=== PATIENT | female | born 1990 | race Caucasian/White ===

== ENCOUNTER → 2021-09-21 08:22 | Outpatient (CLI) | payer OTHER, SELFPAY | PROVIDERS: Visit Provider Physician Assistant | DX: Z11.52 Encounter for screening for COVID-19 (principal) | CPT/HCPCS: 87635; U0005; U0003 ==

== ENCOUNTER → 2022-03-10 | Outpatient (CLI) | payer OTHER, SELFPAY ==
--- NOTE | 2022-03-10 12:42 | RAD_ITS ---
STUDY: X-RAY - RIGHT ANKLE REASON FOR EXAM: Female, 32 years old. Right foot and ankle pain TECHNIQUE: 3 view(s) of the ankle. COMPARISON: None. FINDINGS: Normal visualized distal tibia and fibula. Normal medial and lateral malleoli. Normal tibiotalar articulation and ankle mortise. Normal visualized talus and calcaneus. The visualized subtalar, talonavicular, calcaneocuboid and tarsal articulations are normal. The soft tissue structures are unremarkable. RAD/Ankle min 3 Views IMPRESSION: Normal x-ray examination of the ankle. Electronically Signed: Wilson Camara MD at 12:58 EDT ,
--- NOTE | 2022-03-10 12:42 | RAD_ITS ---
STUDY: X-RAY - RIGHT FOOT CLINICAL: Female, 32 years old. Right foot and ankle pain TECHNIQUE: 3 view(s) of the foot. COMPARISON: None. FINDINGS: Normal talus, calcaneus, and tarsal bones. Normal visualized subtalar, talonavicular, calcaneocuboid, tarsal and tarsometatarsal articulations. Normal metatarsi. 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 Normal tibial and fibular sesamoid bones. Normal interphalangeal joint of the great toe. Normal phalanges of the great toe. Normal second through fifth metatarsophalangeal joints. Normal interphalangeal joints and phalanges of the lesser toes. The soft tissue structures are unremarkable. RAD/Foot min 3 Views IMPRESSION: Degenerative arthrosis and hallux valgus deformity. Electronically Signed: Wilson Camara MD at 12:58 EDT ,
== END | disposition home or self-care (01) ==
LOC: MTRAD 12:42
PROVIDERS: PCP Nurse Practitioner; Referring Provider Physician Assistant Surgical; Visit Provider Physician Assistant Surgical
DX: S96.911A Strain of unspecified muscle and tendon at ankle and foot level, right foot, initial encounter (principal)
CPT/HCPCS: 73610; 73630

== ENCOUNTER → 2022-05-15 | Outpatient (CLI) | payer OTHER, SELFPAY ==
--- NOTE | 2022-05-15 08:00 | RAD_ITS ---
STUDY: HYSTEROSALPINGOGRAM. REASON FOR EXAM: Female, 32 years old. INFERTILITY FLUOROSCOPY TIME (if supplied): ( 19 seconds ) minutes/seconds. 2 images were obtained. TECHNIQUE: A hysterosalpingogram was performed by the field associate. Imaging was provided. COMPARISON: None. FINDINGS: The fallopian tubes are widely patent. There is free spill bilaterally. RAD/Salpingogram IMPRESSION: The fallopian tubes are widely patent with free spill bilaterally. Electronically Signed: Wilson Camara MD at 8:37 EDT ,
== END | disposition home or self-care (01) ==
PROVIDERS: PCP Nurse Practitioner; Referring Provider Obstetrics & Gynecology; Visit Provider Obstetrics & Gynecology
DX: N97.9 Female infertility, unspecified (principal)
CPT/HCPCS: 58340; 74740; Q9967

== ENCOUNTER → 2023-03-15 | Outpatient (CLI) | payer OTHER, SELFPAY ==
[2023-03-15 12:11] LABS: Absolute Lymphocyte Count 1.57 X10^3/uL (0.83-4.51); Absolute Neutrophil Count 5.2 X10^3/uL (2.0-7.7); Basophil# 0.03 X10^3/uL; Basophil% 0.4 % (0-1); Eosinophil# 0.13 X10^3/uL; Eosinophils% 1.7 % (0-5); Hematocrit 44.1 % (37-47); Lymphocyte # 1.57 X10^3/ul (0.83-4.51); Mean Corp Hgb Conc 31.7 g/dL (32-36); Mean Corpuscular Hgb 29.9 pg (27.0-32.0); Mean Corpuscular Volume 94.2 fL (81-99); Mean Platelet Vol. 10.1 fl (6.2-12.0); Monocyte# 0.52 X10^3/uL; NRBC Flagged by Analyzer 0 % (0-5); Neutrophil % 69.5 % (47-70); Platelet Count 273 K/mm3 (150-450); RBC Distribution Width CV 13.8 % (11.6-14.6); RBC Distribution Width SD 47.8 fl (35.1-43.9); Red Blood Count 4.68 M/mm3 (4.2-5.4); White Blood Count 7.5 K/mm3 (4.4-11.0)
[2023-03-15 13:12] LABS: ALB/GLOB Ratio 1.1 RATIO (0.9-2.4); AST(SGOT) 18 U/L (15-37); Alanine Aminotransfer ALT/SGPT 31 U/L (13-56); Albumin, Serum 4.1 g/dL (3.2-5.0); Alkaline Phosphatase 74 U/L (45-117); Anion Gap 6 (5-15); BUN 9 mg/dL (7-18); BUN/Creat Ratio 11.9 RATIO (10-20); Chloride 110 mmol/L (98-107); Cholesterol 128 mg/dL (200); Creatinine, Serum 0.76 mg/dL (0.55-1.02); EST Glomerular Filtration Rate 93 mL/min (>60); Est Glom Filt Rate - Afr Amer 112 mL/min (>60); Globulin 3.8 g/dL (2.2-4.2); Glucose 87 mg/dL (74-106); High Density Lipoprotein 50 mg/dL; Potassium 4.1 mmol/L (3.5-5.1); Protein, Total 7.9 g/dL (6.4-8.2); Sodium Level 139 mmol/L (136-145); Thyroid Stim Hormone (TSH) 1.09 uIU/mL (0.358-3.74); Triglycerides 50 mg/dL; Very Low Density Lipoprotein 10 mg/dL (5-40)
[2023-03-15 14:52] LABS: Vitamin B12 327 pg/mL (211-911); Vitamin D,25 Hydroxy 33.1 ng/mL
== END | disposition home or self-care (01) ==
LOC: BIMLAB 08:29
PROVIDERS: PCP Nurse Practitioner Family; Referring Provider Nurse Practitioner Family; Visit Provider Nurse Practitioner Family
DX: Z00.00 Encounter for general adult medical examination without abnormal findings (principal); E56.9 Vitamin deficiency, unspecified
CPT/HCPCS: 36415; 80053; 80061; 82306; 82607; 84443; 85025

== ENCOUNTER → 2024-02-12 | Outpatient (CLI) | payer OTHER, SELFPAY ==
[2024-02-12 11:12] LABS: Absolute Lymphocyte Count 2.17 X10^3/uL (0.83-4.51); Absolute Neutrophil Count 5.9 X10^3/uL (2.0-7.7); Basophil# 0.07 X10^3/uL; Basophil% 0.8 % (0-1); Eosinophils% 1.1 % (0-5); Hematocrit 44.9 % (37-47); Hemoglobin 14.4 g/dL (12.0-15.0); Lymphocyte # 2.17 X10^3/ul (0.83-4.51); Lymphocyte % 24.4 % (19-41); Mean Corp Hgb Conc 32.1 g/dL (32-36); Mean Corpuscular Hgb 30.5 pg (27.0-32.0); Mean Corpuscular Volume 95.1 fL (81-99); Mean Platelet Vol. 9.6 fl (6.2-12.0); Monocyte# 0.56 X10^3/uL; Monocyte% 6.3 % (0-10); NRBC Flagged by Analyzer 0 % (0-5); Neutrophil # 5.94 X10^3/uL (2.7-7.7); Neutrophil % 66.8 % (47-70); Platelet Count 274 K/mm3 (150-450); RBC Distribution Width CV 14.3 % (11.6-14.6); RBC Distribution Width SD 50.1 fl (35.1-43.9); Red Blood Count 4.72 M/mm3 (4.2-5.4); White Blood Count 8.9 K/mm3 (4.4-11.0)
[2024-02-12 11:48] LABS: ALB/GLOB Ratio 1.1 RATIO (0.9-2.4); AST(SGOT) 19 U/L (15-37); Alanine Aminotransfer ALT/SGPT 33 U/L (13-56); Albumin, Serum 4.1 g/dL (3.2-5.0); Alkaline Phosphatase 74 U/L (45-117); Anion Gap 4 (5-15); BUN 15 mg/dL (7-18); BUN/Creat Ratio 20.2 RATIO (10-20); Calcium,Total 9.4 mg/dL (8.5-10.1); Chloride 107 mmol/L (98-107); Creatinine, Serum 0.74 mg/dL (0.55-1.02); EST Glomerular Filtration Rate 94 mL/min (>60); Est Glom Filt Rate - Afr Amer 114 mL/min (>60); Globulin 3.9 g/dL (2.2-4.2); Glucose 92 mg/dL (74-106); Magnesium 2.1 mg/dL (1.6-2.6); Potassium 4.2 mmol/L (3.5-5.1); Sodium Level 137 mmol/L (136-145); Thyroid Stim Hormone (TSH) 1.65 uIU/mL (0.358-3.74)
== END | disposition home or self-care (01) ==
LOC: LAB 10:58
PROVIDERS: PCP Nurse Practitioner Family; Referring Provider Nurse Practitioner Family; Visit Provider Nurse Practitioner Family
DX: R00.2 Palpitations (principal)
CPT/HCPCS: 36415; 80053; 83735; 84443; 85025

== ENCOUNTER → 2024-02-15 | Outpatient (CLI) | payer OTHER, SELFPAY ==
--- NOTE | 2024-02-15 07:49 | EKG12_ITS ---
Test Reason : PALPS Blood Pressure : / mmHG Vent. Rate : 078 BPM Atrial Rate : 078 BPM P-R Int : 154 ms QRS Dur : 082 ms QT Int : 370 ms P-R-T Axes : 044 021 065 degrees QTc Int : 421 ms Normal sinus rhythm with sinus arrhythmia Normal ECG Confirmed by ARASELI ESCAMILLA, JEANNIE ([id number]), acquisitions editor ANGEL LOERA ([id number]) on 02/15/2024 10:41:24 AM Referred By: Abiodun Laguerre Confirmed By:JEANNIE MARX MD
== END | disposition home or self-care (01) ==
LOC: PSN 07:49
PROVIDERS: PCP Nurse Practitioner Family; Referring Provider Nurse Practitioner Family; Visit Provider Nurse Practitioner Family
DX: R00.2 Palpitations (principal)
CPT/HCPCS: 93005

== ENCOUNTER → 2024-08-25 | Outpatient (CLI) | payer BC, SELFPAY ==
--- NOTE | 2024-08-25 12:14 | RAD_ITS ---
STUDY: X-RAY - LEFT KNEE REASON FOR EXAM: Female, 34 years old. KNEE PAIN TECHNIQUE: 3 views of the left knee. COMPARISON: None. FINDINGS: Normal visualized distal femur. Normal visualized proximal tibia and fibula. Normal proximal tibiofibular articulation. There is no demonstrated fracture. Normal medial femorotibial compartment. Normal lateral femorotibial compartment. Normal patellofemoral articulation. There is a small joint effusion. The soft tissue structures are unremarkable. RAD/Knee 3 Views IMPRESSION: Small joint effusion. No demonstrated fracture. Electronically Signed: Bret Jean MD at 14:06 EDT ,
--- OUTSIDE RECORDS SUMMARY | 2024-08-25 14:11 | XMS RPT_ITS | CCD ---
Author Organization [facility] Care Team Providers Care Portfolio Management Marketing Name Role Phone ADURY, MARIA EUGENIA S Attending Unavailable ADURY, MARIA EUGENIA S Referring Unavailable IMCA Primary Care Unavailable ADURY, MARIA EUGENIA S Attending Unavailable ADURY, MARIA EUGENIA S Referring Unavailable IMCA Primary Care Unavailable ADURY, MARIA EUGENIA S Attending Unavailable ADURY, MARIA EUGENIA S Referring Unavailable IMCA Primary Care Unavailable ADURY, MARIA EUGENIA S Attending Unavailable ADURY, MARIA EUGENIA S Referring Unavailable ADURY, MARIA EUGENIA S Attending Unavailable ADURY, MARIA EUGENIA S Referring Unavailable ADURY, MARIA EUGENIA S Attending Unavailable ADURY, MARIA EUGENIA S Referring Unavailable Unavailable Primary Care Provider Unavailabl e Unavailable Primary Care Provider Unavailnino Terrazas MD, Bishnu Primary Care Provider TERRAZAS, BISHNU Primary Care Unavailable BALLINNANDRAN, ROSANNE Attending Unavailable BALACHANDRAN, ROSANNE Referring Unavailable TERRAZAS, BISHNU Primary Care Unavailable TIFFANY DICKENS Referring Unavailable JESSEE DAVALOS Attending Unavailabl e TERRAZAS, BISHNU Primary Care Unavailable BALLINNANDRAN, ROSANNE Attending Unavailable TERRAZAS, BISHNU Primary Care Unavailable NIKKI COHEN Attending Unavailable JESSEE DAVALOS Referring Unavailabl e TERRAZAS, BISHNU Primary Care Unavailable TERRAZAS, BISHNU Primary Care Unavailable ADELINA HUDSON Attending Unavailable JESSEE DAVALOS Referring Unavailabl e TERRAZAS, BISHNU Primary Care Unavailable TERRAZAS, BISHNU Primary Care Unavailable ROWENA TORRES Attending Unavailable TERRAZAS, BISHNU Primary Care Unavailable BALACHANDRAN, ROSANNE Referring Unavailable MATT ASHRAF Attending Unavailable ROWENA TORRES Attending Unavailable TERRAZAS, BISHNU Primary Care Unavailable AMALIA HAY Attending Unavailable TERRAZAS, BISHNU Primary Care Unavailable BIMAL ETRRAZAS Primary Care Unavailable Bimal Terrazas MD Primary Care Provider Allergies Allergy Classification Reported Allergen(s) Allergy Type Date of Onset Reaction(s) Facility (20 sources) Cat; Translations: [CATS] Propensity to adverse reactions (disorder) 2 Other: See Comments [facility] Repository Medications Current Medications Medication Drug Class(es) Dates Sig (Normalized) Sig (Original) ARIPiprazole 5 mg oral tablet (20 sources) Atypical Antipsychotic Start: 10-24-2021 End: 05-22-2024 take 1 tablet by mouth once daily ARIPiprazole (ABILIFY) 5 mg tablet Indications: Generalized anxiety disorder , Bipolar 1 disorder, manic, full remission (HCC) Take 1 tablet by mouth once daily. 90 tablet 2 05/23/2024 Active Comment on above: TAKE 1 TABLET BY KRISTIAN TH EVERY DAY Take 1 tablet by kristian th once daily. levonorgestrel 0.622435 mg/hr intrauterine system (4 sources) Progestin, Progestin-containin g Intrauterine Device Start: 09-14-2023 End: 09-12-2031 levonorgestrel (MIRENA) 21 mcg/24 hours (8 yrs) 52 mg IUD Indications: Encounter for IUD insertion 1 Each by INTRAUTERINE route as directed. 1 Each 0 09/14/2023 09/12/2031 Active Comment on above: 1 Each by INTRAUTERI NE route as directed. metroNIDAZOLE 500 mg oral tablet (1 source) Nitroimidazole Antimicrobial Start: 08-30-2023 End: 09-06-2023 take 1 tablet by mouth twice daily metroNIDAZOLE (FLAGYL) 500 mg tablet Take 1 tablet by mouth two times a day for 7 days. 14 tablet 0 08/30/2023 09/06/2023 Active Comment on above: Take 1 tablet by kristian th two times a day for 7 days. MOUNJARO 10 mg/0.5 mL pen injector (3 sources) Start: 05-31-2023 inject 10 mg by subcutaneous injection every week MOUNJARO 10 mg/0.5 mL pen injector 10 mg (0.5 mL) subcutaneously every week 0 05/31/2023 Active Comment on above: 10 mg (0.5 mL) subcu taneously every week vitamin b12 1 mg/ml injectable solution (3 sources) Vitamin B12 Start: 08-01-2023 inject 1 mL by subcutaneous injection every month cyanocobalamin 1,000 mcg/mL INJECT 1ML UNDER THE SKIN EVERY MONTH 0 08/01/2023 Active Comment on above: INJECT 1ML UNDER THE SKIN EVERY MONTH Completed/Discontinued Medications Medication Drug Class(es) Dates Sig (Normalized) Sig (Original) amoxicillin 500 mg oral tablet (2 sources) Penicillin-class Antibacterial Start: 07-16-2023 End: 08-29-2023 take 1 tablet by mouth three times daily Amoxicillin 500 mg tablet Indications: Acute otitis media, left Take 1 tablet by mouth three times daily. 21 tablet 0 07/16/2023 08/29/2023 Discontinued (Course of therapy completed) Comment on above: Take 1 tablet by kristian th three times daily. letrozole 2.5 mg oral tablet (20 sources) Aromatase Inhibitor Start: 01-10-2023 End: 08-29-2023 letrozole (FEMARA) 2.5 mg tablet Indications: Problems with ovulation Take 1 tablet by mouth once daily. Cycle day 3-7 5 tablet 3 01/10/2023 08/29/2023 Discontinued (Course of therapy completed) Start: 06-27-2022 End: 10-27-2022 letrozole (FEMARA) 2.5 mg ta blet Take 1 tablet by mouth once daily. Take on CD 5-9 5 tablet 0 09/05/2022 10/27/2022 Discontinued Start: 05-15-2022 take 1 tablet by kristian th once daily, then take 5-9 tablets by mouth once letrozole (FEMARA) 2.5 mg tablet Indications: Female infertility Take 1 tablet by mouth once daily. Take on Cycle Days 5-9 5 tablet 0 05/15/2022 Active Comment on above: Take 1 tablet by kristian th once daily. Take on Cycle Days 5-9 Take 1 tablet by kristian th once daily. Take on CD 5-9 Take 1 tablet by kristian th once daily. Cycle day 3-7 Stsfuqfw-Vn-Pmo-Fe- FA tab (20 sources) Start: 06-24-2021 End: 08-29-2023 take 1 tablet by mouth once daily Lhlsugio-Xu-Xoz-Fe-FA tab Take 1 tablet by mouth once daily. With folic acid and DHA as covered by insurance 30 tablet 11 06/24/2021 08/29/2023 Discontinued (Course of therapy completed) Start: 06-24-2021 take 1 tablet by kristian th once daily Zdjxklhe-Lo-Ouo-Fe-FA tab Take 1 tablet by mouth once daily. With folic acid and DHA as covered by insurance 30 tablet 11 06/24/2021 Active Comment on above: Take 1 tablet by kristian th once daily. With folic acid and DHA as covered by insurance sertraline 50 mg oral tablet (20 sources) Serotonin Reuptake Inhibitor Start: 08-08-2021 End: 02-17-2025 take 1 tablet by mouth once daily sertraline (ZOLOFT) 50 mg tablet Indications: Bipolar 1 disorder, manic, full remission (HCC) , Generalized anxiety disorder Take 1 tablet by mouth once daily. 90 tablet 2 10/05/2023 05/22/2024 Discontinued Comment on above: Take 1 tablet by kristian th once daily. Problems Active Problems Problem Classification Problem Date Documented Date Episodic/Chronic Administrative/social admission (1 source) Treatment plan given; Translations: [Counseling, unspecified] Episodic Anxiety disorders (10 sources) Generalized anxiety disorder; Translations: [Generalized anxiety disorder] Onset: 04-23-2018 Chronic Female infertility (8 sources) Female infertility; Translations: [Female infertility, unspecified] Onset: 11-27-2022 Chronic Mood disorders (20 sources) Recurrent major depressive episodes, severe, with psychosis ; Translations: [Major depressive disorder, recurrent, severe with psychotic symptoms] Onset: 06-30-2015 10-24-2021 Chronic Other female genital disorders (2 sources) Vaginal discharge; Translations: [Other specified noninflammatory disorders of vagina] Episodic Other female genital disorders (3 sources) Disorder of endocrine ovary; Translations: [Noninflammatory disorder of ovary, fallopian tube and broad ligament, unspecified] Episodic Other female genital disorders (1 source) Vaginal odor; Translations: [Other specified noninflammatory disorders of vagina] 08-29-2023 Episodic Other screening for suspected conditions (not mental disorders or infectious disease) (7 sources) Patient encounter status; Translations: [Encounter for screening for diabetes mellitus] Episodic Other upper respiratory disease (20 sources) Seasonal allergy; Translations: [Other seasonal allergic rhinitis] 12-01-2011 Chronic Otitis media and related conditions (1 source) Acute left otitis media; Translations: [Otitis media, unspecified, left ear] 07-16-2023 Episodic Residual codes; unclassified (1 source) Trying to conceive; Translations: [Other specified health status] Episodic Past or Other Problems Problem Classification Problem Date Documented Date Episodic/Chronic Asthma (1 source) Asthma; Translations: [Unspecified asthma, uncomplicated] Resolved: 10-18-2021 10-24-2021 Chronic Contraceptive and procreative management (3 sources) Social and personal history finding; Translations: [Encounter for procreative management, unspecified] Onset: 11-27-2022 Episodic Other female genital disorders (1 source) Noninflammatory disorder of ovary, fallopian tube and broad ligament, unspecified; Translations: [Problems with ovulation] Onset: 11-27-2022 Episodic Residual codes; unclassified (20 sources) Family history of malignant neoplasm of ovary; Translations: [Family history of malignant neoplasm of ovary] Onset: 06-24-2021 06-24-2021 Episodic Residual codes; unclassified (1 source) Other specified health status; Translations: [Attempting to conceive] Onset: 11-27-2022 Episodic Results Test Name Value Interpretation Reference Range Facil ity CNOVon 10-30-2023 CNOV Office Visit (OBGYWM) ---- ASHLEIGH ROBIN ([id number]) 1990 F Date Time Provider Department 10/30/23 2:00 PM ROWENA TORERS OBGYWM During your visit today, we recorded the following information about you: Blood pressure Weight 112/68 84.4 kg Rowena Torres MD 10/30/2023 2:19 PM Signed Ashleigh Robin presents today for IUD check. She had a Mirena placed on 09/14/23. She has had spotting since placement. Like the first day of a period. No dyspareunia. No abnormal discharge. No fever or chills REVIEW OF SYSTEMS: no new c/o PHYSICAL EXAMINATION: LMP 08/18/2023 ABDOMEN:soft, non-tender, no masses, no hepatosplenomegaly, and no lymphadenopathy EXTERNAL GENITALIA: Normal genitalia and Bartholins, Urethra, Sken'e normal CERVIX: smooth, no lesions. IUD strings visible. UTERUS: normal size ADNEXA: negative for tenderness or masses brief TVUS shows IUD in proper location in endometrium IMPRESSION/PLAN: IUD correctly positioned. Some irreg bleeding, reassured common w/ Iudd if still bleeding in another 4 weeks or so consider trial of doxy. She is comfortable w/ plan Rowena Torres M.D. .Medical Decision Making: Problems: Low: 2+ self-limited or minor problems Data: Unique test result(s) reviewed: 1 Risk: Low: Low risk from testing/treatment Medical Decision Making Level: 3 - Low Allergies As of Date: 10/30/2023 Noted Allergy Reaction CATS 12/01/2011 14 - Other: See Comments Comments: nasal allergies Date Reviewed: 10/30/2023 Reviewed by: Rowena Torres MD - Fully Assessed Reason for Visit: IUD [60] Cmt: Bleeding and cramping Primary Visit Diagnosis:IUD check up [Z30.431] Other Visit Diagnosis:Irregular bleeding [N92.6] Prescriptions as of 10/30/2023 - sertraline (ZOLOFT) 50 mg tablet Take 1 tablet by mouth once daily. - ARIPiprazole (ABILIFY) 5 mg tablet Take 1 tablet by mouth once daily. - levonorgestrel (MIRENA) 21 mcg/24 hours (8 yrs) 52 mg IUD 1 Each by INTRAUTERINE route as directed. - MOUNJARO 10 mg/0.5 mL pen injector 10 mg (0.5 mL) subcutaneously every week - cyanocobalamin 1,000 mcg/mL INJECT 1ML UNDER THE SKIN EVERY MONTH Problem List As Of Date 10/30/2023 Noted Resolved Asthma [J45.909] 10/18/2021 Seasonal allergies [J30.2] Depression, major, recurrent, severe with psych*06/30/2015 Bipolar disorder (HCC) [F31.9] 06/24/2021 Family history of ovarian cancer [Z80.41] 06/24/2021 Encounter Status:Closed by ROWENA TORRES on 10/30/23 [facility] Rose 10-05-2023 CNOV Office Visit (ARESCL) ---- SHARDAASHLEIGH PHIPPS ([id number]) 1990 F Date Time Provider Department 10/05/23 3:00 PM MATT ASHRAF AREDMITRY During your visit today, we recorded the following information about you: Matt Ashraf DO 10/05/2023 3:26 PM Attested ---- Attestation signed by Rosanne Jimenez MD at 10/05/2023 3:38 PM Teaching attending- indirect supervision note: Reviewed pt's chart and agree with residents assessment and plan. Rosanne Jimenez MD Adult and Geriatric Psychiatry ---- [facility] PROGRESS NOTE PATIENT: Ashleigh Robin MRD: [id number] DATE: October 05, 2023 IDENTIFYING INFORMATION: Ashleigh is a 33 year old female with a history of bipolar 1 disorder, DAVID. Patient was referred by previous psych provider as transition of care. Initially seen on 07/28/21. CHIEF COMPLAINT: things have been going good SUBJECTIVE: Ashleigh is a 33 year old female with a history of bipolar 1 disorder, DAVID. Patient was referred by previous psych provider as transition of care. Initially seen on 07/28/21. The patient's last appointment with [facility] was on 04/04/23. Psychotropic medication regimen following that appointment included: Zoloft 50 mg daily, Abilify 1.25 mg daily. On encounter today, the patient reports things have been going good . Says she is on zoloft 40 mg and 1.25 mg Abilify. Going through a separation with right now. Feels down but also hopeful about the future. She denies experiencing any recent symptomatology consistent with mando/hypomania for several years. Patient reports mood has been ok. Decided to seperate with in July. Patient denies significant anhedonia. Reports fair motivation. Patient reports sleep is good. Patient states energy is energy throughout the day. Patient denies suicidal thoughts. Reports appetite is unchanged . Anxiety is reported as present, coincides with separation. She states that sentiments of the separation have been in the background over two years, was not a surprise to her. She decided she was no longer interested in pursuing fertility treatments. Ex- continued to want to pursue fertility treatments. They decided he will be best for both of them to separate. States that the separation was amicable and they are still supportive of each other. Regarding panic, patient denies. Things at work are good. Medication side effects: none Suicidal/Homicidal Thoughts/Plans: denies Substance Use History: Caffeine- 2-3 cups Nicotine- denies Alcohol- social THC- denies Denies illicit substance use VITAL SIGNS: LMP 08/18/2023 (Exact Date) LAB DATA: reviewed MENTAL STATUS EXAMINATION: Mental Status Exam: General/Sensorium: Alert - Appearance: Appears well groomed and stated age - Eye Contact: Appropriate eye contact - Demeanor: Appropriately interactive - Motor Activity: Normal - Speech: Appropriate - Mood: Denies mood concerns - Affect: Full range and Reactive - Thought Process: Linear, logical, and goal-directed - Associations: Normal - Thought Content: Appropriate with no SI/HI/AVH and Talking about future goals or plans - Perceptions: The patient does not appear internally stimulated - Cognition: Appears intact in regards to memory, attention/concentra tion, fund of knowledge and language skills - Insight: Fair - Judgment: Fair - RATING SCALES: PHQ-9 Score: 4 (10/03/2023 9:02 PM) (0-4) minimal depression, (5-9) mild depression, (10-14) moderate depression, (15-19) moderately severe depression, (20-27) severe depression DAVID-7 Total Score: 3 (10/03/2023 9:06 PM) (0-4) minimal anxiety, (5-9) mild anxiety, (10-14) moderate anxiety, (15-21) severe anxiety RISK ASSESSMENT: 1.) Wish to be : Have you wished you were or wished you could go to sleep and not wake up? NO 2.) Suicidal Thoughts: Have you actually had any thoughts of killing yourself? NO 3.) Suicide Behavior Question: Have you ever done anything, started to do anything, or prepared to do anything to end your life?NO IMPRESSION: 1..Bipolar 1 disorder, per history, in remission 2. Generalized anxiety disorder PLAN: Provided budget counselor and support. Encouraged ongoing use of coping skills, resiliency. Encouraged healthy and open communication. Continue Zoloft 50 mg daily for depression, anxiety Continue Abilify 1.25 mg p.o. daily as historically prescribed as per prior documentation (denoted in italics): Due to cost issues ordered as Abilify 5 mg p.o. daily (patient cuts it into one fourths). Discussed about Abilify dose of 1.25 mg (not known to stabilize mood at such a low dose). P (more content not included)... Normal [facility] CNOVon 09-14-2023 CNOV Office Visit (OBGYWM) ---- ASHLEIGH ROBIN ([id number]) 1990 F Date Time Provider Department 11/17/23 2:00 PM ROWENA TORRES OBGYWAnette During your visit today, we recorded the following information about you: Blood pressure Weight 122/70 85.7 kg Rowena Torres MD 09/14/2023 2:36 PM Signed Ashleigh presents today for IUD insertion for contraception. Patient's last menstrual period was 08/18/2023 (exact date). GC/chlamydia: Not done: no risk factors and/or patient declines screening test: negative Side effects including irregular bleeding were discussed with the patient. The patient understands that it should be removed in 8 years or sooner if the patient desires a . IUD source: office provided IUD lot #: [id number] Exp date: 07/28/2025 UNIVERSAL PROTOCOL / SAFETY CHECKLIST Procedure to be Performed: Mirena IUD insertion Sign In: A Moment of CARE was completed. Personnel directly involved with the procedure wore the appropriate PPE (Personal Protective Equipment). Patient/Surrogate Stated/Verified: PATIENT VERIFIED(optional for EMERGENT procedures): Patient name, Date of , Relevant allergies, and The intended procedure Time Out Communication: Intended patient and procedure match the source documents. Consent documented and matches the intended procedure. Implant(s) inserted: Correct implant(s) confirmed including size and side. and Expiration date(s) reviewed. Sign Out: SIGN OUT (optional for EMERGENT procedures): All specimen containers correctly labeled. All instruments, equipment, possible retained foreign bodies accounted for. Post-procedure follow-up management communicated and Plan of Care Visit completed when applicable. Rowena Torres M.D. The cervix was prepped with betadine. The uterus sounded to 8 cm and the uterus is Anteverted.. Using sterile technique, the Mirena IUD was inserted without difficulty and the string was cut to 2cm from the external os of the cervix. Patient tolerated procedure well. PLAN: Patient was advised to observe for signs and symptoms of infection including but not limited to fever, malodorous vaginal discharge and/or pain. The patient was told to check the string monthly for accurate placement. Bleeding expectations were reviewed. Follow up for annual or prn MD Rissa Koch [facility] 09/14/2023 2:02 PM Signed POST IUD INSTRUCTIONS You may have irregular bleeding during the first 3 months of use. You may have mild-severe cramping for the next 48 hours. You may use over the counter medication (Motrin, Tylenol) as needed. Your IUD must be removed or replaced based on the following table: IUD Type Removed or replaced within: Saundra 3 years Kyleena 5 years Mirena 8 years Liletta 8 years Paragard 10 years Call the office for signs/symptoms of infection such as severe cramping, fever, or unusual bleeding. Check for string placement as instructed by your doctor. If you have any additional questions, please contact the office. Referring Provider: VERENICE CISNEROS [[id number]] Allergies As of Date: 09/14/2023 Noted Allergy Reaction CATS 12/01/2011 14 - Other: See Comments Comments: nasal allergies Date Reviewed: 09/14/2023 Reviewed by: Hilaria Kwok Ma - Fully Assessed Reason for Visit: Insertion Of IUD [291] Primary Visit Diagnosis:Encounter for IUD insertion [Z30.430] Order(s):HCG QUAL UR B/O [6541614] Order #: [id number] [] levonorgestrel 21 mcg/24 hours (8 yrs) 52 mg 1 Each intrauterine device (MIRENA)Disp: Rfl: levonorgestrel (MIRENA) 21 mcg/24 hours (8 yrs) 52 mg IUD1 Each by INTRAUTERINE route as directed.Disp: 1 EachRfl: 0 Prescriptions as of 09/18/2023 - levonorgestrel (MIRENA) 21 mcg/24 hours (8 yrs) 52 mg IUD 1 Each by INTRAUTERINE route as directed. - MOUNJARO 10 mg/0.5 mL pen injector 10 mg (0.5 mL) subcutaneously every week - cyanocobalamin 1,000 mcg/mL INJECT 1ML UNDER THE SKIN EVERY MONTH - ARIPiprazole (ABILIFY) 5 mg tablet TAKE 1 TABLET BY MOUTH EVERY DAY - sertraline (ZOLOFT) 50 mg tablet Take 1 tablet by mouth once daily. Problem List As Of Date 09/14/2023 Noted Resolved Asthma [J45.909] 10/18/2021 Seasonal allergies [J30.2] Depression, major, recurrent, severe with psych*06/30/2015 Bipolar disorder (HCC) [F31.9] 06/24/2021 Family history of ovarian cancer [Z80.41] 06/24/2021 Other instructions from your clinician: POST IUD INSTRUCTIONS You may have irregular bleeding during the first 3 months of use. You may have mild-severe cramping for the next 48 hours. You may use over the counter medication (Motrin, Tylenol) as needed. Your IUD must be removed or replaced based on the following table: IUD Type Removed or replaced within: Saundra 3 years Kyleena 5 years Mirena 8 years Liletta 8 years Paragard 10 years Call the office for signs/ (more content not included)... Normal [facility] HCG QUAL UR B/Oon 09-14-2023 status Negative neg - pos [facility] 08-30-2023 FELIPE Telephone (OBGYWM) ---- ASHLEIGH ROBIN ([id number]) 1990 F Date Time Provider Department 08/30/23 VERENICE CISNEROS During your visit today, we recorded the following information about you: Verenice Cisneros APRN.CNP 08/30/2023 8:06 AM Signed Please notify patient: You tested positive for bacterial vaginosis. This is an imbalance of your normal bacteria. I will send a prescription for Flagyl 500mg by mouth twice a day for 7 days. 1) No alcohol during treatment and for 72 hours after last dose. 2) No intercourse during treatment. 3) Probiotic by mouth once daily for 30 days or as needed. Please let me know if you have any questions. Verenice Cisneros APRN.Ginger Felipe LPN 08/30/2023 9:28 AM Signed Pt notified via Service Management Groupt and voicemail. Will wait for further response from pt. Ginger Swartz LPN Allergies As of Date: 08/30/2023 Noted Allergy Reaction CATS 12/01/2011 14 - Other: See Comments Comments: nasal allergies Date Reviewed: 08/29/2023 Reviewed by: Amalia Hay APRN.LEASE ADMINISTRATION SUPERVISOR - Fully Assessed Prescriptions as of 08/30/2023 - metroNIDAZOLE (FLAGYL) 500 mg tablet Take 1 tablet by mouth two times a day for 7 days. - ARIPiprazole (ABILIFY) 5 mg tablet TAKE 1 TABLET BY MOUTH EVERY DAY - sertraline (ZOLOFT) 50 mg tablet Take 1 tablet by mouth once daily. Problem List As Of Date 08/30/2023 Noted Resolved Asthma [J45.909] 10/18/2021 Seasonal allergies [J30.2] Depression, major, recurrent, severe with psych*06/30/2015 Bipolar disorder (HCC) [F31.9] 06/24/2021 Family history of ovarian cancer [Z80.41] 06/24/2021 Encounter Status:Closed by GINGER SWRATZ LPN on 08/30/23 Normal [facility] BACTERIAL VAGINOSIS NAATon 1 10-29-2022 Lactobacillus crispatus+gasseri+j ensenii + Gardnerella vaginalis + Atopobium vaginae rRNA KAY+probe Ql (Vag fld) Positive Abnormal Negative for bacterial vaginosis [facility] Comment on above: Order Comment: Speci men Type: SWABOrdering Facility: [facility] Address: [address] [place] [address] Performed By: #### B VAMP, CVTV ####[facility] LABCLIA [id number] [place] [address] [place] BENI/TRICHOMONAS NAATon 1 10-29-2022 C. glabrata RNA KAY+probe Ql (Vag fld) Negative Normal Negative for Beni glabrata [facility] Comment on above: Order Comment: Speci men Type: SWABOrdering Facility: [facility] Address: [address] [place] [address] Performed By: #### B VAMP, CVTV ####[facility] LABCLIA [id number] [place] [address] [place] Beni sp DNA KAY+probe Ql (Vag fld) Negative Normal Negative for Beni species [facility] Comment on above: Order Comment: Speci men Type: SWABOrdering Facility: [facility] Address: [address] [place] [address] Performed By: #### B VAMP, CVTV ####[facility] LABCLIA [id number] [address] [place] T. vaginalis DNA KAY+probe Ql (Unsp spec) Negative Normal Negative for Trichomonas vaginalis by amplification [facility] Comment on above: Order Comment: Speci men Type: SWABOrdering Facility: [facility] Address: [address] [place] [address] Performed By: #### B VAMP, CVTV ####[facility] LABCLIA [id number] [address] [place] CNOVon 08-29-2023 CNOV Office Visit (OBGYWM) ---- SHARDA,ASHLEIGH Cheema ([id number]) 1990 F Date Time Provider Department 08/29/23 9:00 AM AMALIA HAY During your visit today, we recorded the following information about you: Blood pressure Weight Last Period 110/70 86.1 kg 08/18/23 Amalia Hay, JOAO.LEASE ADMINISTRATION SUPERVISOR 08/29/2023 1:08 PM Signed Software Test Manager offered: Patient declines. Ashleigh M Sharda is a 33 year old female who presents for vaginal discharge and odor for 2 week(s). Had yeast infection 6-8 weeks ago and treated with Monistat. Then noticed an odor beginning of July that lasted about 2 weeks as well as an increased amount of discharge. Feeling better today, but wants to be tested for BV and yeast. Vaginal discharge: none. Itching: No Dyspareunia: No Fever/chills: No Abdominal pain: No Bladder: Negative for dysuria or frequency Bowel: No blood in stool, pain with BM, tarry stool, persistent diarrhea or constipation Any new sexual partners or concern for STD exposure: No Any history of STDs: None Does your partner have any new complaints: No Are you currently taking any medications to treat vaginitis: No Do you use feminine sprays, douches or deodorants: No Menstrual cycle: cycles every 32 days and 2-3 days of flow Contraception: none Last pap: 2019, normal HPV negative Past medical, surgical, social history, medications and allergies reviewed and updated. OBJECTIVE: BP 110/70 Wt 189 lb 12.8 oz (86.1kg) LMP 08/18/2023 GENERAL: Well developed, well nourished in no apparent distress ABDOMEN: soft, non-tender, and no masses PELVIC: external genitalia normal, normal Bartholin's glands, urethra, Bacliff's glands, no vulvar lesions, no cervical lesions, good vaginal support, physiologic discharge present, normal appearing perineal body and perianal region BIMANUAL: uterus normal size, shape and consistency, no adnexal masses, and non-tender. RECTOVAGINAL: deferred. ASSESSMENT/PLAN: 1. Vaginal odor - ICD9: 625.8, ICD10: N89.8 (primary diagnosis) - BACTERIAL VAGINOSIS NAAT - BENI/TRICHOMONAS NAAT 2. Vaginal discharge - ICD9: 623.5, ICD10: N89.8 - Recommend [facility] probiotic - Cotton underwear - Neutral soaps 3. Encounter for counseling regarding contraception - ICD9: V25.09, ICD10: Z30.09 - Has had IUD before - Wants IUD again - No longer pursuing fertility due to separation - Reviewed r/b/a - Plan for insertion Coping with separation at this time. Has counselor and psychiatrist. Patient to notify if she needs additional mental health assistance. STD screening: Declined STD check. Any new medications given to the patient have been explained as to directions, reasons for prescribing and side effects. Perineal hygiene and safe sex were discussed with the patient. Medical Decision Making: Problems: Low: Acute, uncomplicated illness or injury Data: Unique test(s) ordered: 2 Risk: Minimal: Minimal risk from testing/treatment Medical Decision Making Level: 3 - Low JOSEPH Hung APRN.CNP Referring Provider: SELF [[id number]] Allergies As of Date: 08/29/2023 Noted Allergy Reaction CATS 12/01/2011 14 - Other: See Comments Comments: nasal allergies Date Reviewed: 08/29/2023 Reviewed by: Amalia Hay APRN.LEASE ADMINISTRATION SUPERVISOR - Fully Assessed Reason for Visit: Vaginal Problem [117] Cmt: And discuss iud Primary Visit Diagnosis:Vaginal odor [N89.8] Other Visit Diagnoses:Encounter for counseling regarding contraception [Z30.09] Vaginal discharge [N89.8] Order(s):BACTERIAL VAGINOSIS NAAT [SQBVAMP] Order #: [id number]. #:[id number] BENI/TRICHOMONAS NAAT [SQCVTV] Order #: [id number]. #:[id number] INSERT INTRAUTERINE DEVICE [[id number]] Order #: [id number] Prescriptions as of 08/29/2023 - ARIPiprazole (ABILIFY) 5 mg tablet TAKE 1 TABLET BY MOUTH EVERY DAY - sertraline (ZOLOFT) 50 mg tablet Take 1 tablet by mouth once daily. Problem List As Of Date 08/29/2023 Noted Resolved Asthma [J45.909] 10/18/2021 Seasonal allergies [J30.2] Depression, major, recurrent, severe with psych*06/30/2015 Bipolar disorder (HCC) [F31.9] 06/24/2021 Family history of ovarian cancer [Z80.41] 06/24/2021 Medications Discontinued During This Encounter Prescriptions - Amoxicillin 500 mg tablet (Discontinued) Take 1 tablet by mouth three times daily. - letrozole (FEMARA) 2.5 mg tablet (Discontinued) Take 1 tablet by mouth once daily. Cycle day 3-7 - Fgyxditg-Di-Yuf-Fe- FA tab (Discontinued) Reported on 07/16/2023 Disposition: Return for IUD insertion. Follow-up and Disposition History for Encounter Date Provider Department Center 08/29/2023 [id number] HAY Encounter Status:Closed by AMALIA HAY on 08/29/23 [facility] CNOVon 07-16-2023 CNOV Office Visit (UCWSTR) ---- ASHLEIGH ROBIN ([id number]) 1990 F Date Time Provider Department 07/16/23 10:30 AM [facility] During your visit today, we recorded the following information about you: Temperature Pulse Respiration Blood pressure 98.6 degrees 91/minute 21/minute 134/90 Weight 88.3 kg Elizabeth Roche APRN.LEASE ADMINISTRATION SUPERVISOR 07/16/2023 10:50 AM Signed SUBJECTIVE: Ashleigh Robin is a 33 year old female. Who presents today with L ear pain since last night. She has not had an ear infection since she was a kid. She started having pain and pressure last night. She has no other symptoms and no fever. She is flying to [place] in 2 days. HPI PAST MEDICAL HISTORY Diagnosis Date Asthma childhood, exersice/cold air Bipolar disorder (HCC) 06/24/2021 BRCA negative 06/07/2020 [facility] Common cancer gene panel Depression, major, recurrent, severe with psychosis (HCC) 06/30/20152012, she was hospitalized, for psychosis. Her took her to the hospital. She had paranoia, that she would loose her job. took her to the ER, then she was hospitalized for a week at [place], She was started on the abilify, she feels good now, Sees her psychiatrist once every 6 months- Dr.Adury Crowder. DAVID (generalized anxiety disorder) History of mando 2012 admitted [facility] History of pyelonephritis 07/2011 MDD (major depressive disorder) 2012 Scoliosis Seasonal allergies FAMILY HISTORY Problem Relation Age of Onset Heart Mother Diabetes Father Auto-Immune Disorder Father MS-didn't meet all criteria for diagnosis Anxiety disorder Father No Known Problems Brother Heart Maternal Grandmother pacemaker Alcohol/Drug Maternal Grandfather Cancer Paternal Grandmother ovarian Heart Paternal Grandfather Melanoma Maternal Aunt Melanoma Maternal Uncle Social History Tobacco Use Smoking status: Never Smokeless tobacco: Never Vaping Use Vaping Use: Never used Substance Use Topics Alcohol use: Yes Alcohol/week: 18.0 standard drinks of alcohol Types: 9 Standard drinks or equivalent, 9 Glasses of Wine (5oz) per week Comment: 9-12 drinks per week Drug use: No ALLERGIES Allergen Reactions Cats Other: See Comments nasal allergies Current Outpatient Medications Medication Sig Dispense Refill ARIPiprazole (ABILIFY) 5 mg tablet TAKE 1 TABLET BY MOUTH EVERY DAY 90 tablet 0 sertraline (ZOLOFT) 50 mg tablet Take 1 tablet by mouth once daily. 90 tablet 2 letrozole (FEMARA) 2.5 mg tablet Take 1 tablet by mouth once daily. Cycle day 3-7 5 tablet 3 Xvbmavlx-Rj-Mre-Fe- FA tab Take 1 tablet by mouth once daily. With folic acid and DHA as covered by insurance (Patient not taking: Reported on 07/16/2023) 30 tablet 11 No current facility-administer ed medications for this visit. OBJECTIVE: BP 134/90 Pulse 91 Temp 37 ?C (98.6 ?F) Resp 21 Wt 88.3 kg (194 lb 9.6 oz) LMP 10/06/2022 (Exact Date) SpO2 97% BMI 28.12 kg/m? ROS all other systems reviewed and are negative Physical Exam Constitutional: Well developed, well nourished, NAD, AANDO X3. ENT: Head is atraumatic, airway patent, mucosal membranes moist. LTM red and buldging RTM with small amount of fluid Neck: supple with no palpable lymph nodes Cardiac: Heart tone normal rate and rhythm Respiratory: Breath sounds clear : no CVA tenderness MS: no swelling, tenderness or deformity in upper or lower extremities, no midline tenderness in cervical, thoracic or lumbar spine. Neuro: strength sensation and coordination intact. CN II-XII grossly intact, Skin: warm and dry with out rash, lesion or ecchymosis on exposed skin Psych: alert appropriate, speech clear It was a pleasure to take care of Ashleigh Robin today. For her ear infection I will send in amox. She may also use otc medications as discussed for pain and discomfort. Patient will follow up with family physician. They may return to the Urgent Care or go to the ER for worsening symptoms or concerns. Patient verbalized understanding of plan of care and is in agreement. ASSESSMENT/PLAN: 1. Acute otitis media, left - ICD9: 382.9, ICD10: H66.92 - AMOXICILLIN 500 MG TABLET Elizabeth Roche APRN.LEASE ADMINISTRATION SUPERVISOR Allergies As of Date: 07/16/2023 Noted Allergy Reaction CATS 12/01/2011 14 - Other: See Comments Comments: nasal allergies Date Reviewed: 07/16/2023 Reviewed by: Nadiya Parikh MA - Fully Assessed Reason for Visit: Ear Pain [817] Cmt: Left ear pain, feels clogged x 1 day Primary Visit Diagnosis:Acute otitis media, left [H66.92] Order(s):Amoxicilli n 500 mg tabletTake 1 tablet by mouth three times daily.Disp: 21 tabletRfl: 0 Prescriptions as of 07/16/2023 - Amoxicillin 500 mg tablet Take 1 tablet by mouth three times daily. - ARIPiprazole (ABILIFY) 5 mg tablet TAKE 1 TABLET BY MOUTH EVERY DAY - sertraline (ZOLOFT) 50 mg tablet Take 1 table (more content not included)... Normal [facility] CNOVon 04-04-2023 CNOV Office Visit (AGPSYACC) ---- SHARDAASHLEIGH PHIPPS ([id number]) 1990 F Date Time Provider Department 04/04/23 4:00 PM ROSANNE JIMENEZPSYACC During your visit today, we recorded the following information about you: Rosanne Jimenez MD 04/04/2023 4:32 PM Signed [facility]IC[facility] PROGRESS NOTE PATIENT: Ashleigh Robin MRD: [id number] DATE: April 04, 2023 IDENTIFYING INFORMATION: Ashleigh is a 33 year old female with a history of bipolar 1 disorder, DAVID. Patient was referred by previous psych provider as transition of care. Initially seen on 07/28/21. CHIEF COMPLAINT: doing well SUBJECTIVE: States that she's been doing well. She feels so much better after she and her decided to take a break from fertility treatment. She went through 2 cycles of IUI and it did not work out for them. It was frustrating. So they decided to take a break for now. States that her is extremely supportive. She denies any mood changes. Denies feeling anxious or depressed. Denies racing thoughts/flight of ideas/irritability/ impulsivity or any reckless behavior. Compliant with meds and denies any side effects. Denies SI/HI/AH/VH. Med compliant and denies any s/e. States that Femara (medication she received during IUI cycles) made her cry a lot and since she stopped taking it, she feels back to feeling like herself. She and her are planning to go camping and are traveling this summer. Medication side effects: None Suicidal/Homicidal Thoughts/Plans: denies Substance Use History: Tobacco-quit 2 years back. Alcohol-socially THC-occasionally. Quit 2 years back Ulrarnsd-8-8 cups of coffee a day. VITAL SIGNS: LMP-03/14/23 LAB DATA: None new MENTAL STATUS EXAMINATION: Appearance: appears stated age, ,Female, well-built and nourished, normal clothing, grooming is Within Normal Limits Activity: Normal Behavior: Cooperative, Good eye contact Speech: spontaneous, Normal rate, Normal volume, Clear Mood: Euthymic Affect: appropriate to content Thought Process: logical, coherent and rational Thought Content: no paranoia/delusions noted, No suicidal ideation, intent or plan. No homicidal ideation, intent or plan. Coherent Thought perception: Denies AH/VH. Cognition: Orientation: Person, Place, Time and Situation Attention: Intact Concentration: Intact Language: Intact naming Estimated Intelligence: Good Memory: Intact recent memory, Intact remote memory Insight: good Judgement: good RATING SCALES: PHQ-9 Score: 1 (04/02/2023 3:50 PM) (0-4) minimal depression, (5-9) mild depression, (10-14) moderate depression, (15-19) moderately severe depression, (20-27) severe depression DAVID-7 Total Score: 3 (04/02/2023 3:50 PM) (0-4) minimal anxiety, (5-9) mild anxiety, (10-14) moderate anxiety, (15-21) severe anxiety RISK ASSESSMENT: [place] SUICIDE SEVERITY RATING SCALE 1.) Wish to be : Have you wished you were or wished you could go to sleep and not wake up? NO 2.) Suicidal Thoughts: Have you actually had any thoughts of killing yourself? NO 6.) Suicide Behavior Question: Have you ever done anything, started to do anything, or prepared to do anything to end your life?NO IMPRESSION: 33 year-old female with medical history significant for asthma, scoliosis, seasonal allergie and psych history significant for bipolar 1 disorder and DAVID, presents today for follow up. Symptoms of bipolar disorder continue to be in remission. Diagnoses: Bipolar 1 disorder, in remission Generalized anxiety disorder PLAN: Continue Zoloft 50 mg p.o. daily for depression, anxiety Continue Abilify 1.25 mg p.o. daily as previously prescribed for mood stabilization, augmentation. Due to cost issues ordered as Abilify 5 mg p.o. daily (patient cuts it into one fourths). Discussed about Abilify dose of 1.25 mg (not known to stabilize mood at such a low dose). Pt. Verbalized understanding. She's been on this dose for many years since working with Dr. Barton. Risks, benefits, adverse effects and drug drug interactions of above meds discussed. Discussed in detail regarding safety of Zoloft and Abilify use in . Previously given reading material regarding use of Abilify in (unclear data, usually not recommended). Weighing the risks and benefits, it was decided that she continue Abilify (h/o relapse when Abilify was discontinued). Patient gives verbal permission to be registered in National Registry for Atypical Antipsychotics, once is confirmed. Medication changes: None Labs: None Provided supportive psychotherapy. Sees someone in [facility] for individual counseling as needed. [facility] website checked and validated. All prescriptions have been APPROPRIATELY filled. No suspicious activity was ident (more content not included)... Normal [facility] CNOVon 01-27-2023 CNOV Office Visit (REIBD) ---- ASHLEIGH ROBIN ([id number]) 1990 F Date Time Provider Department 01/27/23 10:00 AM NIKKI COHEN During your visit today, we recorded the following information about you: Lilly Lang 01/27/2023 10:30 AM Signed IUI specimen released to provider Lilly Lang January 27, 2023 10:10 AM Lilly Lang 01/27/2023 10:30 AM Signed IUI Pre: 56 m/ml, 82% Post: 44 m/ml, 96% Insem # 16.8 million Nikki Cohen APRN.CNP 01/27/2023 10:29 AM Signed [facility] IUI PROCEDURE NOTE Date: 01/27/2023 Primary Proceduralist: Nikki Cohen APRN.CNP Consents and Labels Consent Signed: Informed Consent obtained and on the chart Labels Verified With Patient: Yes Indications: Ashleigh Robin, is a 32 year old female here today for intrauterine insemination. IUI # 2. Cycle Day: 18 Last menstrual period: 01/10/2023 [place] Protocol: UNIVERSAL PROTOCOL / SAFETY CHECKLIST Procedure to be Performed: IUI #2 completed @ 10:12 am Sign In: A Moment of CARE was completed. Personnel directly involved with the procedure wore the appropriate PPE (Personal Protective Equipment). No special equipment needed. Patient/Surrogate Stated/Verified: PATIENT VERIFIED(optional for EMERGENT procedures): Patient name, Date of , Relevant allergies, and The intended procedure Time Out Communication: Intended patient and procedure match the source documents. Consent documented and matches the intended procedure. Sign Out: SIGN OUT (optional for EMERGENT procedures): No specimen collected. All instruments, equipment, possible retained foreign bodies accounted for. Post-procedure follow-up management communicated and Plan of Care Visit completed when applicable. Nikki Cohen APRN.CNP IUI IUI Date: 01/27/23 IUI #: 2 Pre-Procedure Diagnosis: Infertility Post-Procedure Diagnosis: Infertility Cycle Meds: Letrozole 2.5 mg Trigger: LH Surge Date Catheter Type: Curve catheter Tenaculum: No Catheter passed: Easy Complications: None Sperm Information: Source of Sperm: Partner Ejaculated: Yes Fresh/Frozen: Fresh TMC (total motile count of sperm after wash): 16.8 million Cycle reviewed, all questions answered. Pt instructed to take a test in 17 days if no menses and call with results. SIGNATURE: Nikki Cohen APRN.CNP PATIENT NAME: Ashleigh Robin DATE: January 27, 2023 TIME: 10:28 AM Referring Provider: JESSEE DAVALOS [[id number]] Allergies As of Date: 01/27/2023 Noted Allergy Reaction CATS 12/01/2011 14 - Other: See Comments Comments: nasal allergies Date Reviewed: 01/27/2023 Reviewed by: Nikki Cohen APRN.LEASE ADMINISTRATION SUPERVISOR - Fully Assessed Primary Visit Diagnosis:Encounter for artificial insemination [Z31.89] Prescriptions as of 01/27/2023 - letrozole (FEMARA) 2.5 mg tablet Take 1 tablet by mouth once daily. Cycle day 3-7 - ARIPiprazole (ABILIFY) 5 mg tablet Take 1 tablet by mouth once daily. - sertraline (ZOLOFT) 50 mg tablet Take 1 tablet by mouth once daily. - Lflkrvdv-Fv-Vos-Fe- FA tab Take 1 tablet by mouth once daily. With folic acid and DHA as covered by insurance Problem List As Of Date 01/27/2023 Noted Resolved Asthma [J45.909] 10/18/2021 Seasonal allergies [J30.2] Depression, major, recurrent, severe with psych*06/30/2015 Bipolar disorder (HCC) [F31.9] 06/24/2021 Family history of ovarian cancer [Z80.41] 06/24/2021 Encounter Status:[facility]REIBD[facility] ---- ASHLEIGH ROBIN ([id number]) 1990 F Date Time Provider Department 01/11/23 JESSEE DAVALOS During your visit today, we recorded the following information about you: Lucía Adamson Pss 01/11/2023 8:40 AM Signed Please send to [facility] in [place] on [address], needs to start it tomorrow please follow up with patient when called in. Aisha Lemos PA-C 01/11/2023 9:00 AM Signed Called the pt and notified that the Letrozole has been sent to that [facility] yesterday. Pt will call the pharmacy next. Aisha Lemos PA-C January 11, 2023 8:59 AM Allergies As of Date: 01/11/2023 Noted Allergy Reaction CATS 12/01/2011 14 - Other: See Comments Comments: nasal allergies Date Reviewed: 12/29/2022 Reviewed by: Adelina Hudson APRN.LEASE ADMINISTRATION SUPERVISOR - Fully Assessed Reason for Visit: letrozole 2.5 mg needs script [Other] Visit Diagnosis:Problems with ovulation [N83.9] Prescriptions as of 01/11/2023 - letrozole (FEMARA) 2.5 mg tablet Take 1 tablet by mouth once daily. Cycle day 3-7 - ARIPiprazole (ABILIFY) 5 mg tablet Take 1 tablet by mouth once daily. - sertraline (ZOLOFT) 50 mg tablet Take 1 tablet by mouth once daily. - Mxdukunf-Bj-Pck-Fe- FA tab Take 1 tablet by mouth once daily. With folic acid and DHA as covered by insurance Problem List As Of Date 01/11/2023 Noted Resolved Asthma [J45.909] 10/18/2021 Seasonal allergies [J30.2] Depression, major, recurrent, severe with psych*06/30/2015 Bipolar disorder (HCC) [F31.9] 06/24/2021 Family history of ovarian cancer [Z80.41] 06/24/2021 Encounter Status:Closed by AISHA LEMOS on 01/11/23 [facility] ASHLEIGH ROBIN ([id number]) 1990 F Date Time Provider Department 01/10/23 JESSEE DAVALOS During your visit today, we recorded the following information about you: Sharri Rincon Pss 01/10/2023 9:05 AM Signed Failed iui next steps Aisha Lemos PA-C 01/10/2023 3:51 PM Addendum Pt has completed Natural cycle/IUI Started period today, 01/10/23. Plan from 11/27/22 PLAN: LET 7.5 mg CD 3-7 OPK or Follicular monitoring IUI Maximum 3-4 ovulatory cycles; thereafter, if no conception has occurred, schedule a virtual visit to discuss additional work up, if any, and future treatment options ----- Pt is willing to try Let/ IUI States she has tried Let 2.5/OPK/TI last year (through her [employer] doc), and was able to miner pick + OPK. SC: Dr. Davalos, please advised on the proper dose of Letrozole for this pt. Please schedule the patient for the following- Please provide financial clearance for IUI for this pt. Aisha Lemos PA-C January 10, 2023 3:[address] Davalos agreed to start with Let 2.5mg for now. sent to the pt , with instructions Aisha Lemos PA-C January 10, 2023 3:49 PM Allergies As of Date: 01/10/2023 Noted Allergy Reaction CATS 12/01/2011 14 - Other: See Comments Comments: nasal allergies Date Reviewed: 12/29/2022 Reviewed by: Adelina Hudson APRN.LEASE ADMINISTRATION SUPERVISOR - Fully Assessed Reason for Visit: failed iui [Other] Primary Visit Diagnosis:Encounter for fertility planning [Z31.89 (ICD-10-CM)] [Z31.89] Other Visit Diagnosis:Problems with ovulation [N83.9] Order(s):letrozole (FEMARA) 2.5 mg tabletTake 1 tablet by mouth once daily. Cycle day 3-7Disp: 5 tabletRfl: 3 Prescriptions as of 01/10/2023 - letrozole (FEMARA) 2.5 mg tablet Take 1 tablet by mouth once daily. Cycle day 3-7 - ARIPiprazole (ABILIFY) 5 mg tablet Take 1 tablet by mouth once daily. - sertraline (ZOLOFT) 50 mg tablet Take 1 tablet by mouth once daily. - Jstesrtx-Ce-Tfj-Fe- FA tab Take 1 tablet by mouth once daily. With folic acid and DHA as covered by insurance Problem List As Of Date 01/10/2023 Noted Resolved Asthma [J45.909] 10/18/2021 Seasonal allergies [J30.2] Depression, major, recurrent, severe with psych*06/30/2015 Bipolar disorder (HCC) [F31.9] 06/24/2021 Family history of ovarian cancer [Z80.41] 06/24/2021 Prescriptions ordered this encounter Disp Refills Start End LETROZOLE 2.5 MG TABLET 5 ta* 3 01/10/2023 Route: ORAL Sig: Take 1 tablet by mouth once daily. Cycle day 3-7 Encounter Status:Closed by AISHA LEMOS on 01/10/23 [facility] [place] 12-26-2022 CNOV Office Visit (REIBD) ---- ASHLEIGH ROBIN ([id number]) 1990 F Date Time Provider Department 12/26/22 2:30 PM ADELINA HUDSON During your visit today, we recorded the following information about you: Adelina Hudson APRN.CNP 12/29/2022 6:14 PM Addendum [facility] IUI PROCEDURE NOTE Date: 12/26/2022 Primary Proceduralist: Adelina Hudson APRN.CNP Consents and Labels Consent Signed: Informed Consent obtained and on the chart Labels Verified With Patient: Yes Indications: Ashleigh Robin, is a 32 year old female here today for intrauterine insemination. IUI # 1. Cycle Day: 20 Last menstrual period: 12/07/2022 [place] Protocol: UNIVERSAL PROTOCOL / SAFETY CHECKLIST Procedure to be Performed: IUI IUI performed at 3:17pm Sign In: A Moment of CARE was completed. Personnel directly involved with the procedure wore the appropriate PPE (Personal Protective Equipment). Patient/Surrogate Stated/Verified: PATIENT VERIFIED(optional for EMERGENT procedures): Patient name, Date of , Relevant allergies, and The intended procedure Time Out Communication: Intended patient and procedure match the source documents. Consent documented and matches the intended procedure. Sign Out: SIGN OUT (optional for EMERGENT procedures): No specimen collected. All instruments, equipment, possible retained foreign bodies accounted for. Adelina Hudson APRN.CNP IUI IUI Date: 12/26/22 IUI #: 1 Pre-Procedure Diagnosis: Infertility Post-Procedure Diagnosis: Infertility Cycle Meds: Natural Cycle Luteal Phase Progesterone: N/A Trigger: LH Surge Date Catheter Type: Unisem catheter Tenaculum: No Catheter passed: Easy Complications: None Sperm Information: Source of Sperm: Partner Ejaculated: Yes Fresh/Frozen: Fresh TMC (total motile count of sperm after wash): 3.4 million Cycle reviewed, all questions answered. Pt instructed to take a test in 17 days if no menses and call with results. Late ovulation. consider starting Letrozole if not this cycle. It's in Dr. Davalos's plan, but patient did natural cycle. SIGNATURE: Adelina Hudson APRN.CNP PATIENT NAME: Ashleigh Robin DATE: December 29, 2022 TIME: 6:01 PM Claritza Angulo 12/29/2022 6:06 PM Signed IUI specimen released to provider Claritza Angulo December 26, 2022 3:08 PM Claritza Angulo 12/29/2022 6:06 PM Signed IUI WASH PRE: 36 MILLION/ML, 77% POST: 9 MILLION/ML, 94% FINAL INSEM #: 3.4 MILLION Claritza Angulo Referring Provider: JESSEE DAVALOS [[id number]] Allergies As of Date: 12/26/2022 Noted Allergy Reaction CATS 12/01/2011 14 - Other: See Comments Comments: nasal allergies Date Reviewed: 10/27/2022 Reviewed by: Carola Clark LPN - Fully Assessed Reason for Visit: IUI [Other] Primary Visit Diagnosis:Encounter for artificial insemination [Z31.89] Prescriptions as of 12/29/2022 - ARIPiprazole (ABILIFY) 5 mg tablet Take 1 tablet by mouth once daily. - sertraline (ZOLOFT) 50 mg tablet Take 1 tablet by mouth once daily. - Sibmwkek-Ea-Zvj-Fe- FA tab Take 1 tablet by mouth once daily. With folic acid and DHA as covered by insurance Problem List As Of Date 12/26/2022 Noted Resolved Asthma [J45.909] 10/18/2021 Seasonal allergies [J30.2] Depression, major, recurrent, severe with psych*06/30/2015 Bipolar disorder (HCC) [F31.9] 06/24/2021 Family history of ovarian cancer [Z80.41] 06/24/2021 Encounter Status:Closed by [facility]LIN[facility]ON [facility] (REIBD) ---- ASHLEIGH ROBIN ([id number]) 1990 F Date Time Provider Department 12/25/22 JESSEE DAVALOS During your visit today, we recorded the following information about you: Janay Tomas 12/25/2022 4:36 PM Signed Pt tested for ovulation this morning it was negative , tested this afternoon and was positive , pt was wondering if she should come in tomorrow for iui? Ne Gregg APRN.LEASE ADMINISTRATION SUPERVISOR 12/25/2022 4:47 PM Signed unable to reach, left message to return my call, can schedule same day at [place] tomorrow if she wishes. Ne Gregg APRN.LEASE ADMINISTRATION SUPERVISOR December 25, 2022 4:46 PM Allergies As of Date: 12/25/2022 Noted Allergy Reaction CATS 12/01/2011 14 - Other: See Comments Comments: nasal allergies Date Reviewed: 10/27/2022 Reviewed by: Carola Clark LPN - Fully Assessed Reason for Visit: insemination [Other] Primary Visit Diagnosis:Treatment plan provided [Z71.9] Prescriptions as of 12/25/2022 - ARIPiprazole (ABILIFY) 5 mg tablet Take 1 tablet by mouth once daily. - sertraline (ZOLOFT) 50 mg tablet Take 1 tablet by mouth once daily. - Iwmlofns-Vg-Slg-Fe- FA tab Take 1 tablet by mouth once daily. With folic acid and DHA as covered by insurance Problem List As Of Date 12/25/2022 Noted Resolved Asthma [J45.909] 10/18/2021 Seasonal allergies [J30.2] Depression, major, recurrent, severe with psych*06/30/2015 Bipolar disorder (HCC) [F31.9] 06/24/2021 Family history of ovarian cancer [Z80.41] 06/24/2021 Encounter Status:Closed by NE GREGG on 12/25/22 [facility] CONSULT PROGon 11-27-2022 CONSULT PROG HNO ID: [id number] Author: Jessee Davalos MD Service: ? Author Type: Physician Type: Consult Progress Note Filed: 12/17/2022 11:18 PM Note Text: VIRTUAL VISIT PROGRESS NOTE This is a virtual visit using [employer] video visit. It required patient-provider interaction for the medical decision making as documented below. Date of Consult: 11/27/2022 Consultation Requested By: Self-referred Ashleigh Robin is a 32 year old female presenting with the following history: HISTORY OF PRESENT ILLNESS: Ashleigh Robin is a 32 year old female Attempting to conceive since IUD removal 05/2021 Menstrual cycle irregularity: 28-31 cycle interval. OPK+ CD 18-19 PMHx: 30.8. Bipolar disorder. UTI PSHx: Bunionectomy OBHx: Denies Meds: MVI Desire for future fertility LET X4 cycles: Failed to conceive Wants pursue LET + IUI Discussed Laparoscopy and other testing considerations 34 year old male partner without proven fertility PMHx: Hiatal hernia. DAVID. Depression PSHx: Denies Meds: Anxiety and depression medications SA: Not completed to date Obstetric History T0 L0 SAB0 IAB0 Ectopic0 Multiple0 Live Births0 Fertility Evaluations and Treatments: Eval Checklist Results Date Comments HSG Not done Hysteroscopy Not done Laparoscopy Not done OPK (Ovulation Predictor Kit) Not done Ovarian [place] Not done Saline Ultrasound Not done Semen Analysis Not done Ultrasound Not done Other (See comments) Not done MENSTRUAL HISTORY: Menarche Age: Length of Cycle: Days: Menstrual Flow: Menstrual Symptoms: Patient's last menstrual period was 10/06/2022 (exact date). PAST MEDICAL HISTORY Diagnosis Date Asthma childhood, exersice/cold air Bipolar disorder (HCC) 06/24/2021 BRCA negative 06/07/2020 [facility] Common cancer gene panel Depression, major, recurrent, severe with psychosis (HCC) 06/30/20152012, she was hospitalized, for psychosis. Her took her to the hospital. She had paranoia, that she would loose her job. took her to the ER, then she was hospitalized for a week at [place], She was started on the abilify, she feels good now, Sees her psychiatrist once every 6 months- Dr.Adury Crowder. DAVID (generalized anxiety disorder) History of mando 2012 admitted [facility] History of pyelonephritis 07/2011 MDD (major depressive disorder) 2012 Scoliosis Seasonal allergies PAST SURGICAL HISTORY Procedure Laterality Date CORRECT BUNION,SIMPLE 10/29/2001 right HSG Bilateral 05/15/2022 B/l tubal patency- Dr. Carpio [facility] PAST SURGICAL HISTORY OF oral skin graft, receeding gums, age 14 FAMILY HISTORY Problem Relation Age of Onset Heart Mother Diabetes Father Auto-Immune Disorder Father MS-didn't meet all criteria for diagnosis Anxiety disorder Father No Known Problems Brother Heart Maternal Grandmother pacemaker Alcohol/Drug Maternal Grandfather Cancer Paternal Grandmother ovarian Heart Paternal Grandfather Melanoma Maternal Aunt Melanoma Maternal Uncle ETHNICITY: White GENETIC HISTORY: NA OCCUPATION/EXERCISE : Occupation: Exercise: Partner Information Partner's Name: Partner's : Partner's MRN: Partner's Ethnicity: NOT or Partner's Race: White MEDICATIONS: Current Outpatient Medications on File Prior to Visit Medication Sig ARIPiprazole (ABILIFY) 5 mg tablet Take 1 tablet by mouth once daily. sertraline (ZOLOFT) 50 mg tablet Take 1 tablet by mouth once daily. Jwtxfdvd-Ig-Slk-Fe- FA tab Take 1 tablet by mouth once daily. With folic acid and DHA as covered by insurance No current facility-administer ed medications on file prior to visit. ALLERGIES: Cats Blood Type: NA ASSESSMENT: 32 year old female Attempting to conceive since IUD removal 05/2021 Menstrual cycle irregularity: 28-31 cycle interval. OPK+ CD 18-19 PMHx: 30.8. Bipolar disorder. UTI PSHx: Bunionectomy OBHx: Denies Meds: MVI Desire for future fertility LET X4 cycles: Failed to conceive Wants pursue LET + IUI Discussed Laparoscopy and other testing considerations 34 year old male partner without proven fertility PMHx: Hiatal hernia. DAVID. Depression PSHx: Denies Meds: Anxiety and depression medications SA: Not completed to date PLAN: LET 7.5 mg CD 3-7 OPK or Follicular monitoring IUI Maximum 3-4 ovulatory cycles; thereafter, if no conception has occurred, schedule a virtual visit to discuss additional work up, if any, and future treatment options Initial evaluation: Hormone values: Normal HSG: Normal 04/2022 Pelvic US: Normal 04/2022 SA: Normal Follow-up visit: In-person office visit or virtual visit to review and discuss initial work-up results to determine treatment plan I spent a total of 60 minutes on the date of the service which included preparing to see the patient, upxf-la-ulcu patient care, completing clinical documentation, obtaining and/or reviewing (more content not included)... Normal [facility] Basic metabolic 2000 panelon 10-27-2022 Anion gap [Moles/Vol] 13 mmol/L 9 - 18 mmol/L [facility] Calcium [Mass/Vol] 9.5 mg/dL 8.5 - 10.2 mg/dL [facility] Chloride [Moles/Vol] 107 mmol/L High 97 - 105 mmol/L [facility] CO2 [Moles/Vol] 20 mmol/L Low 22 - 30 mmol/L [facility] Creatinine [Mass/Vol] 0.67 mg/dL 0.58 - 0.96 mg/dL [facility] Estimated Glomerular Filtration Rate 119 mL/min/1.73m >=60 mL/min/1.73m [facility] Glucose [Mass/Vol] 81 mg/dL 74 - 99 mg/dL [facility] Potassium [Moles/Vol] 4.1 mmol/L 3.7 - 5.1 mmol/L [facility] Sodium [Moles/Vol] 140 mmol/L 136 - 144 mmol/L [facility] Urea nitrogen [Mass/Vol] 10 mg/dL 7 - 21 mg/dL [facility] CNOVon 10-02-2022 CNOV Office Visit (AGPSYACC) ---- SHARDAASHLEIGH PHIPPS ([id number]) 1990 F Date Time Provider Department 10/02/22 4:30 PM ROSANNE JIMENEZ During your visit today, we recorded the following information about you: Rosanne Jimenez MD 10/02/2022 5:05 PM Signed [facility]ICINE PROGRESS NOTE PATIENT: Ashleigh Andrewsak MRD: [id number] DATE: October 02, 2022 IDENTIFYING INFORMATION: Ashleigh is a 32 year old female with a history of bipolar 1 disorder, DAVID. Patient was referred by previous psych provider as transition of care. Initially seen on 07/28/21. 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 She is not sure if she wants to take the next step-that is seeing a fertility specialist. She was also in the process of accepting a job with a higher pay, but the position got filled. All this together got her feeling a little down. However, she states that she feels fine and that this is just a phase in life. Her functionality is well-maintained. States that her has been extremely supportive. She is going to take a week to decide going in to see a fertility specialist. She denies any racing thoughts, flight of ideas or increased energy. Gets 8 hours of sleep at night and feels well rested during the day. Appetite is fair. Compliant with meds and denies any side effects. Denies SI/HI/AH/VH. States that she is optimistic. Medication side effects: None Suicidal/Homicidal Thoughts/Plans: denies Substance Use History: Tobacco-quit 1 year Alcohol-socially THC-occasionally. Quit 1 year back Rinslcch-6-7 cups of coffee a day. VITAL SIGNS: LMP 03/07/2022 (Exact Date) LAB DATA: None new MENTAL STATUS EXAMINATION: Appearance: appears stated age, ,Female, well-built and nourished, normal clothing, grooming is Within Normal Limits Activity: Normal Behavior: Cooperative, Good eye contact Speech: spontaneous, Normal rate, Normal volume, Clear Mood: Euthymic Affect: appropriate to content Thought Process: logical, coherent and rational Thought Content: no paranoia/delusions noted, No suicidal ideation, intent or plan. No homicidal ideation, intent or plan. Coherent Thought perception: Denies AH/VH. Cognition: Orientation: Person, Place, Time and Situation Attention: Intact Concentration: Intact Language: Intact naming Estimated Intelligence: Good Memory: Intact recent memory, Intact remote memory Insight: good Judgement: good RATING SCALES: PHQ-9 Score: 3 (09/26/2022 3:05 PM) (0-4) minimal depression, (5-9) mild depression, (10-14) moderate depression, (15-19) moderately severe depression, (20-27) severe depression DAVID-7 Total Score: 3 (09/26/2022 3:09 PM) (0-4) minimal anxiety, (5-9) mild anxiety, (10-14) moderate anxiety, (15-21) severe anxiety RISK ASSESSMENT: [place] SUICIDE SEVERITY RATING SCALE 1.) Wish to be : Have you wished you were or wished you could go to sleep and not wake up? NO 2.) Suicidal Thoughts: Have you actually had any thoughts of killing yourself? NO 6.) Suicide Behavior Question: Have you ever done anything, started to do anything, or prepared to do anything to end your life?NO IMPRESSION: 32-year-old female with medical history significant for asthma, scoliosis, seasonal allergie and psych history significant for bipolar 1 disorder and DAVID, presents today for follow up. Stable on current dose of meds. Diagnoses: Bipolar 1 disorder, in remission Generalized anxiety disorder PLAN: Continue Zoloft 50 mg p.o. daily for depression, anxiety Continue Abilify 1.25 mg p.o. daily as previously prescribed for mood stabilization, augmentation. Due to cost issues ordered as Abilify 5 mg p.o. daily (patient cuts it into one fourths). Discussed about Abilify dose of 1.25 mg (not known to stabilize mood at such a low dose). Pt. Verbalized understanding. She's been on this dose for many years since working with Dr. Barton. Risks, benefits, adverse effects and drug drug interactions of above meds discussed. Discussed in detail regarding safety of Zoloft and Abilify use in . Given reading material regarding use of Abilify in (unclear data, usually not recommended). Weighing the risks and benefits, it was decided that she continue Abilify (h/o relapse when Abilify was discontinued). Patient gives verbal permission to be registered in National Registry for Atypical Antipsychotics, once is confirmed. Medication changes: None Labs: None Provided supportive psychotherapy and validated her concerns. PDMP website checked and validated. All prescriptions have been APPROPRIATELY filled. No suspicious activity was identified. (more content not included)... Normal [facility] Vital Signs Date Time Vital Sign Value Performing Clinician Rayne cannon 09-14-2023 14:12-0500 Body weight 85.73 kg Rowena Torres MD Work Phone: [facility] 09-14-2023 14:12-0500 Diastolic blood pressure 70 mm[Hg] Rowena Torres MD Work Phone: [facility] 09-14-2023 14:12-0500 Systolic blood pressure 122 mm[Hg] Rowena Torres MD Work Phone: [facility] 08-29-2023 08:52-0400 Body weight 86.09 kg Amalia Hay APRN.LEASE ADMINISTRATION SUPERVISOR Work Phone: [facility] 08-29-2023 08:52-0400 Diastolic blood pressure 70 mm[Hg] Amalia Hay APRN.LEASE ADMINISTRATION SUPERVISOR Work Phone: [facility] 08-29-2023 08:52-0400 Systolic blood pressure 110 mm[Hg] Amalia Hay APRN.LEASE ADMINISTRATION SUPERVISOR Work Phone: [facility] 07-16-2023 10:33-0400 Body temperature 98.6 [degF] Elizabeth Roche APRN.LEASE ADMINISTRATION SUPERVISOR Work Phone: [facility] 07-16-2023 10:33-0400 Body weight 88.27 kg Elizabeth Roche APRN.LEASE ADMINISTRATION SUPERVISOR Work Phone: [facility] 07-16-2023 10:33-0400 Diastolic blood pressure 90 mm[Hg] Elizabeth Roche APRN.LEASE ADMINISTRATION SUPERVISOR Work Phone: [facility] 07-16-2023 10:33-0400 Heart rate 91 /min Elizabeth Roche APRN.LEASE ADMINISTRATION SUPERVISOR Work Phone: [facility] 07-16-2023 10:33-0400 Respiratory rate 21 /min Elizabeth Roche APRN.LEASE ADMINISTRATION SUPERVISOR Work Phone: [facility] 07-16-2023 10:33-0400 SaO2% (BldA) [Mass fraction] 97 % Elizabeth Roche APRN.LEASE ADMINISTRATION SUPERVISOR Work Phone: [facility] 07-16-2023 10:33-0400 Systolic blood pressure 134 mm[Hg] Elizabeth Roche APRN.LEASE ADMINISTRATION SUPERVISOR Work Phone: [facility] 10-27-2022 09:24-0500 Body height 177.2 cm Bimal Terrazas MD Work Phone: [facility] 10-27-2022 09:24-0500 Body temperature 97.2 [degF] Bimal Terrazas MD Work Phone: [facility] 10-27-2022 09:24-0500 Body weight 96.62 kg Bimal Terrazas MD Work Phone: [facility] 10-27-2022 09:24-0500 Diastolic blood pressure 80 mm[Hg] Bimal Terrazas MD Work Phone: [facility] 10-27-2022 09:24-0500 Heart rate 82 /min Bimal Terrazas MD Work Phone: [facility] 10-27-2022 09:24-0500 Respiratory rate 16 /min Bimal Terrazas MD Work Phone: [facility] 10-27-2022 09:24-0500 SaO2% (BldA) [Mass fraction] 96 % Bimal Terrazas MD Work Phone: [facility] 10-27-2022 09:24-0500 Systolic blood pressure 120 mm[Hg] Bimal Terrazas MD Work Phone: [facility] 10-16-2022 11:27-0500 Body height 177.2 cm Tiffany Dickens APRN.CNM Work Phone: [facility] 10-16-2022 11:27-0500 Body weight 96.16 kg Tiffany Dickens APRN.CNM Work Phone: [facility] 10-16-2022 11:27-0500 Diastolic blood pressure 68 mm[Hg] Tiffany Dickens APRN.CNM Work Phone: [facility] 10-16-2022 11:27-0500 Systolic blood pressure 116 mm[Hg] Tiffany Dickens APRN.CNM Work Phone: [facility] Encounters Encounter Date Encounter Type Care Provider Facility Start: 05-23-2024 End: 05-23-2024 [facility] Pascale Work Phone: [facility] Comment on above: Generalized anxiety disorder (Primary Dx); Bipolar 1 disorder, manic, full remission (HCC) Start: 10-30-2023 End: 10-30-2023 ambulatory BIMAL TERRAZAS Facility:[facility] Start: 10-05-2023 End: 10-05-2023 ambulatory BIMAL TERRAZAS Facility:[facility] Start: 10-05-2023 End: 10-05-2023 Patient encounter procedure Matt Ashraf DO Work Phone: [facility] Comment on above: Bipolar 1 disorder, manic, full remission (HCC) (Primary Dx); Generalized anxiety disorder Start: 09-14-2023 End: 09-14-2023 ambulatory ROWENA TORRES Facility:[facility] Start: 09-14-2023 End: 09-14-2023 Patient encounter procedure Rowena Torres MD Work Phone: [facility] Comment on above: Encounter for IUD in sertion (Primary Dx) Start: 08-30-2023 Orders Only Verenice MANN RN.LEASE ADMINISTRATION SUPERVISOR Work Phone: [facility] Start: 08-29-2023 End: 08-29-2023 ambulatory AMALIA HAY Facility:[facility] Start: 08-29-2023 End: 08-29-2023 Patient encounter procedure Amalia Hay APRN.LEASE ADMINISTRATION SUPERVISOR Work Phone: [facility] Comment on above: Vaginal odor (Primar y Dx); Encounter for counseling regarding contraception; Vaginal discharge Start: 07-16-2023 End: 07-16-2023 ambulatory BIMAL TERRAZAS Facility:[facility] Start: 07-16-2023 End: 07-16-2023 Patient encounter procedure Elizabeth Roche APRN.LEASE ADMINISTRATION SUPERVISOR Work Phone: [facility] Comment on above: Acute otitis media, left (Primary Dx) Start: 04-25-2023 Refill Rosanne kay MD Work Phone: [facility] Comment on above: Refill Request Start: 04-04-2023 End: 04-04-2023 ambulatory BIMAL TERRAZAS Facility:[facility] Start: 04-04-2023 End: 04-04-2023 Patient encounter procedure Rosanne Jimenez MD Work Phone: [facility] Comment on above: Bipolar 1 disorder, manic, full remission (HCC) (Primary Dx); Generalized anxiety disorder Start: 04-04-2023 Refill Rosanne kay MD Work Phone: [facility] Comment on above: Med Change Request Start: 01-27-2023 End: 01-27-2023 ambulatory BIMAL TERRAZAS Facility:[facility] Start: 01-27-2023 End: 01-27-2023 Patient encounter procedure Nikki Cohen PLUGGER.LEASE ADMINISTRATION SUPERVISOR Work Phone: [facility] Comment on above: Encounter for artifi cial insemination (Primary Dx) Start: 01-26-2023 End: 01-26-2023 ambulatory BIMAL TERRAZAS Facility:[facility] Start: 01-11-2023 Telephone encounter Jessee Davalos MD Work Phone: [facility] Comment on above: letrozole 2.5 mg nee ds script Start: 01-10-2023 Telephone encounter Jessee Davalos MD Work Phone: [facility] Comment on above: failed iui Start: 12-29-2022 ambulatory Adelina reyes PLUGGER.LEASE ADMINISTRATION SUPERVISOR Work Phone: [facility] Comment on above: Next steps Start: 12-29-2022 E-mail encounter fro m caregiver Adelina Hudson PLUGGER.LEASE ADMINISTRATION SUPERVISOR Work Phone: [facility] Start: 12-26-2022 End: 12-26-2022 ambulatory BIMAL TERRAZAS Facility:[facility] Start: 12-26-2022 End: 12-26-2022 Patient encounter procedure Adelina Hudson PLUGGER.LEASE ADMINISTRATION SUPERVISOR Work Phone: [facility] Comment on above: Encounter for artifi cial insemination (Primary Dx) Start: 12-26-2022 End: 12-26-2022 ambulatory BIMAL TERRAZAS Facility:[facility] Start: 12-25-2022 Telephone encounter Jessee Davalos MD Work Phone: [facility] Comment on above: insemination Start: 11-27-2022 End: 11-27-2022 ambulatory BIMAL TERRAZAS [facility] Start: 11-27-2022 End: 11-27-2022 ambulatory Jessee Davalos MD Work Phone: [facility] Comment on above: Problems with ovulat ion (Primary Dx); Female infertility; Attempting to conceive; Patient desires ; Encounter for fertility planning Start: 11-27-2022 End: 11-27-2022 Telemedicine consultation with patient Jessee Davalos MD Work Phone: [facility] Start: 11-02-2022 ambulatory Sandrine Carpio MD Work Phone: [facility] Start: 11-02-2022 Patient encounter procedure Sandrine Carpio MD Work Phone: [facility]/Gy[facility]cology Comment on above: Infertility consult Start: 10-27-2022 End: 10-27-2022 Patient encounter procedure Bimal Terrazas MD Work Phone: [facility] [place] Comment on above: Routine medical exam (Primary Dx); Encounter for screening for diabetes mellitus Start: 10-27-2022 End: 10-27-2022 Patient encounter status Bimal Terrazas MD Work Phone: [facility] [place] Start: 10-16-2022 End: 10-16-2022 Patient encounter procedure Tiffany Dickens APRN.CNM Work Phone: [facility] Comment on above: Encounter for gyneco logical examination (general) (routine) with abnormal findings (Primary Dx); Female infertility; Vaginal discharge; Family history of ovarian cancer Start: 10-16-2022 End: 10-16-2022 Patient encounter status Tiffany Dickens APRN.CNM Work Phone: [facility] Start: 10-09-2022 ambulatory Sandrine Carpio MD Work Phone: [facility] Comment on above: Cycle day 1 Start: 10-02-2022 End: 10-02-2022 ambulatory BIMAL TERRAZAS [facility] Start: 10-02-2022 End: 10-02-2022 Patient encounter procedure Rosanne Jimenez MD Work Phone: [facility] Comment on above: Bipolar 1 disorder, manic, full remission (HCC) (Primary Dx); Generalized anxiety disorder Start: 07-31-2022 Orders Only Sandrine Carpio MD Work Phone: [facility] Start: 06-27-2022 ambulatory Sandrine Carpio MD Work Phone: [facility] Comment on above: Progesterone Start: 06-15-2022 Telephone encounter Sandrine Carpio MD Work Phone: [facility] Comment on above: Patient Question Start: 05-16-2022 ambulatory Sandrine Carpio MD Work Phone: [facility] Comment on above: (Rylan) test ing Start: 05-15-2022 Telephone encounter Sandrine Carpio MD Work Phone: [facility] Comment on above: Orders Start: 05-09-2022 End: 05-09-2022 ambulatory Sandrine Carpio MD Work Phone: [facility] Comment on above: Female infertility ( Primary Dx) HSG Start: 05-09-2022 End: 05-09-2022 Telemedicine consultation with patient Sandrine Carpio MD Work Phone: [facility] Start: 04-04-2022 End: 04-04-2022 [facility] Rosanne Jimenez MD Work Phone: [facility] Comment on above: Bipolar 1 disorder, manic, full remission (HCC) (Primary Dx); Generalized anxiety disorder Start: 03-17-2022 End: 03-17-2022 ambulatory Tiffany Dickens APRN.CNM Work Phone: [facility] Comment on above: Female infertility ( Primary Dx) Start: 03-17-2022 End: 03-17-2022 Telemedicine consultation with patient Tiffany Dickens APRN.SMOOTH Work Phone: [facility] Start: 08-18-2019 Patient encounter procedure MARIA EUGENIA Michele ADURY Facility:[facility] Start: 02-17-2019 End: 02-17-2019 Patient encounter procedure MARIA EUGENIA Michele ADURY Facility:[facility] Start: 08-19-2018 End: 08-19-2018 Patient encounter procedure MARIA EUGENIA Leny GIPSONURY Facility:[facility] Start: 05-20-2018 Patient encounter procedure MARIA EUGENIA S BRANDANURY Facility:[facility] Start: 04-23-2018 End: 04-23-2018 Patient encounter procedure [facility] Leny GIPSONURY Facility:[facility] Start: 04-15-2018 Patient encounter procedure MARIA EUGENIA GIPSONURY Facility:[facility] Procedures Date Procedure Procedure Detail Performing Clinician Start: 09-14-2023 Urine test visual color cmprsn hareshs Rowena Torres MD Work Phone: Plan of Treatment Date Care Activity Detail Author Start: 05-19-2030 Urine microalbumin profile [facility] Start: 05-10-2025 HPV TESTING HPV TESTING [facility] Start: 05-10-2025 PAP TESTING PAP TESTING [facility] Start: 05-10-2025 Screening for malign ant neoplasm of cervix Cervical Cancer Screening [facility] Start: 06-29-2024 Influenza vaccination Influenza Vacc ine (#1) [facility] Start: 08-28-2023 Covid-19 Vaccine ( season) Covid-19 Vaccine () [facility] Start: 06-29-2023 Influenza vaccination Influenza Vacc ine (#1) [facility] Start: 08-03-2022 End: 10-03-2022 Progesterone [Mass/volume] in Serum or Plasma PROGESTERONE BLD Lab Routine Female infertility Expected: 08/03/2022 (Approximate), Expires: 10/03/2022 [facility] Work Phone: Comment on above: Expected: 08/03/2022 (Approximate), Expires: 10/03/2022 Start: 07-28-2022 End: 09-27-2022 Progesterone [Mass/volume] in Serum or Plasma PROGESTERONE BLD Lab Routine Female infertility Expected: 07/28/2022 (Approximate), Expires: 09/27/2022 [facility] Work Phone: Comment on above: Expected: 07/28/2022 (Approximate), Expires: 09/27/2022 Start: 07-06-2022 End: 09-05-2022 Progesterone [Mass/volume] in Serum or Plasma PROGESTERONE BLD Lab Routine Female infertility Expected: 07/06/2022 (Approximate), Expires: 09/05/2022 [facility] Work Phone: Comment on above: Expected: 07/06/2022 (Approximate), Expires: 09/05/2022 Start: 06-29-2022 Influenza vaccination INFLUENZA (#1) [facility] Start: 06-29-2022 End: 08-29-2022 Progesterone [Mass/volume] in Serum or Plasma PROGESTERONE BLD Lab Routine Female infertility Expected: 06/29/2022 (Approximate), Expires: 08/29/2022 [facility] Work Phone: Comment on above: Expected: 06/29/2022 (Approximate), Expires: 08/29/2022 Start: 03-17-2022 End: 05-17-2022 Estradiol (E2) [Mass/volume] in Serum or Plasma ESTRADIOL-17B BLD Lab Routine Female infertility Expected: 03/17/2022, Expires: 05/17/2022 [facility] Work Phone: Comment on above: Expected: 03/17/2022 , Expires: 05/17/2022 Start: 03-17-2022 End: 05-17-2022 Follitropin [Units/volume] in Serum or Plasma FSH BLD Lab Routine Female infertility Expected: 03/17/2022, Expires: 05/17/2022 [facility] Work Phone: Comment on above: Expected: 03/17/2022 , Expires: 05/17/2022 Start: 03-17-2022 End: 05-17-2022 PROGESTERONE BLD PROGESTERONE BLD Lab Routine Female infertility Expected: 03/17/2022, Expires: 05/17/2022 [facility] Work Phone: Comment on above: Expected: 03/17/2022 , Expires: 05/17/2022 Start: 03-17-2022 End: 05-17-2022 Thyrotropin [Units/volume] in Serum or Plasma TSH BLD Lab Routine Female infertility Expected: 03/17/2022, Expires: 05/17/2022 [facility] Work Phone: Comment on above: Expected: 03/17/2022 , Expires: 05/17/2022 Start: 01-02-2022 COVID-19 VACCINE (4 - Booster for Pfizer series) COVID-19 VACCINE (4 - Booster for Pfizer series) [facility] Start: 12-27-2021 COVID-19 VACCINE (4 - Booster for Pfizer series) COVID-19 VACCINE (4 - Booster for Pfizer series) [facility] Start: 11-29-2021 COVID-19 VACCINE (4 - Booster for Pfizer series) COVID-19 VACCINE (4 - Booster for Pfizer series) [facility] Start: 02-05-2008 SHINGRIX VACCINE (1 of 2) SHINGRIX VACCINE (1 of 2) [facility] Start: 2007 Anxiety Screening Anxiety Screening [facility] Start: 1989 HEPATITIS B (1 of 3 - 3-dose series) HEPATITIS B (1 of 3 - 3-dose series) [facility] BACTERIAL VAGINOSIS AMPLIFICATION BACTERIAL VAGINOSIS AMPLIFICATION Lab Routine Vaginal discharge 10/16/2022 12:16 PM [facility] Work Phone: BACTERIAL VAGINOSIS NAAT BACTERI AL VAGINOSIS NAAT Lab Routine Vaginal odor 08/29/2023 9:24 AM EDT [facility] Work Phone: BENI / TRICHOMONA S AMPLIFICATION BENI / TRICHOMONAS AMPLIFICATION Microbiology Routine Vaginal discharge 10/16/2022 12:16 PM EST [facility] Work Phone: BENI/TRICHOMONAS NAAT BENI /TRICHOMONAS NAAT Lab Routine Vaginal odor 08/29/2023 9:24 AM EDT [facility] Work Phone: Insertion intrauteri ne device iud INSERT INTRAUTERINE DEVICE Procedures Routine Encounter for counseling regarding contraception Ordered: 08/29/2023 [facility] Work Phone: Comment on above: Ordered: 08/29/2023 [facility] Immunizations Immunization Date Immunization Notes Care Provider Fa [facility] 08-16-2023 Seasonal, quadrivale nt, recombinant, injectable influenza vaccine, preservative free Rowena Torres MD Work Phone: [facility] Work Phone: 08-16-2023 influenza virus vacc ine, unspecified formulation Matt Geneeva HARRISON Work Phone: [facility] 09-06-2022 Influenza, injectabl e, Madin Juntura Canine Kidney, preservative free, quadrivalent Bimal Terrazas MD Work Phone: [facility] Work Phone: 09-06-2022 influenza virus vacc ine, unspecified formulation Elizabeth Roche APRN.LEASE ADMINISTRATION SUPERVISOR Work Phone: [facility] 08-09-2021 influenza, injectabl e, quadrivalent, preservative free Bimal Terrazas MD Work Phone: [facility] Work Phone: 07-27-2020 influenza, injectabl e, quadrivalent, preservative free Bimal Terrazas MD Work Phone: [facility] Work Phone: 05-19-2020 tetanus toxoid, redu bahvesh diphtheria toxoid, and acellular pertussis vaccine, adsorbed Tiffanytracee Dickens PLUGGER.CNM Work Phone: [facility] 08-26-2019 influenza, injectabl e, quadrivalent, preservative free Bimal Terrazas MD Work Phone: [facility] Work Phone: 07-30-2018 Influenza, injectabl e, Madin Nereida Canine Kidney, preservative free, quadrivalent Bimal Terrazas MD Work Phone: [facility] Work Phone: 07-24-2018 hepatitis A vaccine, adult dosage Bimal Terrazas MD Work Phone: [facility] Work Phone: 07-23-2018 typhoid capsular polysaccharide vaccine Bimal Terrazas MD Work Phone: [facility] Work Phone: 07-18-2017 influenza, injectabl e, quadrivalent, preservative free Bimal Terrazas MD Work Phone: [facility] Work Phone: 07-07-2016 influenza, injectabl e, quadrivalent, preservative free Bimal Terrazas MD Work Phone: [facility] Work Phone: 08-13-2015 influenza, injectabl e, quadrivalent, preservative free Bimal Terrazas MD Work Phone: [facility] Work Phone: 08-03-2014 influenza, seasonal, injectable, preservative free Bimal Terrazas MD Work Phone: [facility] Work Phone: 07-31-2013 influenza, seasonal, injectable, preservative free Bimal Terrazas MD Work Phone: [facility] Work Phone: 09-02-2012 influenza nasal, unspecified formulation Bimal Terrazas MD Work Phone: [facility] Work Phone: 09-02-2012 influenza virus vacc ine, unspecified formulation Tiffany Dickens APRN.CNM Work Phone: [facility] Work Phone: 08-21-2012 influenza, seasonal, injectable, preservative free Bimal Terrazas MD Work Phone: [facility] Work Phone: 08-02-2011 influenza, seasonal, injectable, preservative free Bimal Terrazas MD Work Phone: [facility] Work Phone: 03-03-2010 hepatitis A vaccine, adult dosage Bimal Terrazas MD Work Phone: [facility] Work Phone: 03-01-2010 yellow fever vaccine Bimal Terrazas MD Work Phone: [facility] Work Phone: 01-27-2010 tetanus toxoid, redu bhavesh diphtheria toxoid, and acellular pertussis vaccine, adsorbed Tiffany Dickens PLUGGER.CN Work Phone: [facility] Work Phone: 09-01-2009 novel Influenza-H1N1 -09, live virus for nasal administration Bimal Terrazas MD Work Phone: [facility] Work Phone: 03-19-2007 meningococcal ACWY vaccine, unspecified formulation Bimal Terrazas MD Work Phone: [facility] Work Phone: 03-19-2007 tetanus toxoid, redu bhavesh diphtheria toxoid, and acellular pertussis vaccine, adsorbed Tiffany Dickens PLUGGER.CNM Work Phone: [facility] 02-26-2001 measles, mumps and rubella virus vaccine Bimal Terrazas MD Work Phone: [facility] Work Phone: 02-10-1998 hepatitis B vaccine, adult dosage Bimal Terrazas MD Work Phone: [facility] Work Phone: 06-09-1997 hepatitis B vaccine, adult dosage Bimal Terrazas MD Work Phone: [facility] Work Phone: 02-11-1997 hepatitis B vaccine, adult dosage Bimal Terrazas MD Work Phone: [facility] Work Phone: 03-02-1994 poliovirus vaccine, inactivated Bimal Terrazas MD Work Phone: [facility] Work Phone: 08-16-1990 poliovirus vaccine, inactivated Bimal Terrazas MD Work Phone: [facility] Work Phone: 05-10-1990 measles, mumps and rubella virus vaccine Bimal Terrazas MD Work Phone: [facility] Work Phone: 1989 poliovirus vaccine, inactivated Bimal Terrazas MD Work Phone: [facility] Work Phone: 1989 poliovirus vaccine, inactivated Bimal Terrazas MD Work Phone: [facility] Work Phone: Payers Date Payer Category Payer Unknown [id number] 2021 Private Health Insurance [id number] 2021 Unknown [id number] 2021 Unknown MMO MMO [employer] [id number] 2021-Present [phone] [address] [place] [address] PPO [id number] 2021 Unknown [id number] 2021 Unknown [id number] 1989 Unknown [id number] 1989 Unknown [id number] 78 1989 Unknown [id number] 1989 Unknown [id number] 78 1989 Unknown [id number] 78 1989 Unknown [id number] 78 Unknown [id number] Social History Date Type Detail Facility Start: 08-17-2011 End: 10-16-2022 Tobacco smoking status NHIS Never smoked tobacco [facility] Work Phone: Start: 08-17-2011 End: 10-16-2022 Tobacco use and exposure Smokeless tobacco non-user [facility] Work Phone: Start: 01-03-2022 End: 05-23-2024 Alcohol intake Current drinker of alcohol (finding) [facility] Start: 01-03-2022 End: 04-02-2023 Alcohol intake [facility] Start: 09-19-2021 End: 10-20-2022 History SDOH Alcohol Frequency 4 [facility] Start: 09-19-2021 End: 10-20-2022 History SDOH Alcohol Std Drinks 2 [facility] Start: 09-19-2021 End: 10-20-2022 History SDOH Social Connections Phone 3 [facility] Start: 09-19-2021 End: 10-20-2022 History SDOH Social Connections [facility] 1 [facility] Start: 09-19-2021 End: 10-20-2022 History SDOH Financial 5 [facility] Start: 1989 Sex Assigned At Not on file [facility] Start: 03-25-2022 End: 04-04-2022 Exposure to SARS-CoV-2 (event) Yes [facility] Start: 04-17-2022 End: 10-02-2022 Exposure to SARS-CoV-2 (event) Not sure [facility] Start: 10-27-2022 Alcohol Comment 9-12 drinks per week [facility] Start: 10-20-2022 End: 04-02-2023 Social connection and isolation panel [facility] Are you now , , , , never or living with a partner? [facility] How often to you hav e a drink containing alcohol? 2-3 time sa week [facility] How many standard dr inks containing alcohol do you have on a typical day? 3 or 4 [facility] How often do you hav e 6 or more drinks on 1 occasion? Monthly [facility] How hard is it for y ou to pay for the very basics like food, housing, medical care, and heating Not hard at all [facility] Do you feel stress - tense, restless, nervous, or anxious, or unable to sleep at night because your mind is troubled all the time - these days [OSQ] Only a little [facility] (I/We) worried wheth er (my/our) food would run out before (I/we) got money to buy more. Never true [facility] In the past 12 month s, was there a time when you were not able to pay the mortgage or rent on time? No [facility] Clinical Notes 10-18-2021 to 05-23-2024 Matt Ashraf, - 05/23/2024 2:00 PM Matt Blackwood DO - 10/05/2023 3:00 PM ESTRowena Ricci MD - 09/14/2023 1:59 PM Amalia Bird APRN.LEASE ADMINISTRATION SUPERVISOR - 08/29/2023 8:45 AM EDT Note Date & Type Note Facility 05-23-2024 History of Presen t illness Narrative [facility] PROGRESS NOTE PATIENT: Ashleigh Robin MRD: [id number] DATE: May 22, 2024 Telehealth VISIT Utilizing telemental health services via telephone / video due to current national crisis related to Covid-19 pandemic. Introduced difference in communication with patient when they were contacted. Verified patient location, , and current address. Identified their current location. Verified their emergency contact information. Discussed procedure if communication were to be disrupted. Discussed limits of confidentiality during telehealth conversations. Patient gave verbal consent to engage in telemental health services. Virtual platform used: [employer] Pt was explained the process of use of telehealth and pt agreed and consented to the use. IDENTIFYING INFORMATION: Ashleigh Minaya (pt reaadopted her maiden name) is a 34 year old female with a history of bipolar 1 disorder, DAVID. CHIEF COMPLAINT: good SUBJECTIVE: Ashleigh is a 34 year old female with a history of bipolar 1 disorder, DAVID. The patient's last appointment with [facility] was on 10/05/23. Psychotropic medication regimen following that appointment included: Zoloft 50 mg daily, Abilify 1.25 mg daily. On encounter today, the patient reports Things have been very good . Went through divorce in January. Started a new job on February 26. Is back at [employer]. Purchased a house. Patient reports mood has been good. Had some difficult emotions with marriage disillusion but overall doing ok. Doing some travel for work- [place], [place]. Patient reports sleep is good. Patient states energy is ok throughout the day. Patient denies suicidal thoughts. Reports appetite is good. Anxiety is reported as low and manageable. Pt reports she is still seeing a therapist Medication side effects: None Suicidal/Homicidal Thoughts/Plans: denies Substance Use History: Caffeine- 2-3 cups a day Nicotine- denies Alcohol- social THC- denies Denies illicit substance use VITAL SIGNS: LMP 08/18/2023 (Exact Date) LAB DATA: reviewed MENTAL STATUS EXAMINATION: Mental Status Exam: General/Sensorium: Alert - Appearance: Casually dressed and Appears stated age - Eye Contact: Appropriate eye contact - Demeanor: Appropriately interactive - Motor Activity: Normal - Speech: Appropriate - Mood: Denies mood concerns - Affect: Full range and Reactive - Thought Process: Linear, logical, and goal-directed - Associations: Normal - Thought Content: Appropriate with no SI/HI/AVH and Talking about future goals or plans - Perceptions: The patient does not appear internally stimulated - Cognition: Appears intact in regards to memory, attention/concentration, fund of knowledge and language skills - Insight: Fair - Judgment: Fair - RATING SCALES: PHQ-9 Score: 3 (05/21/2024 4:28 PM) (0-4) minimal depression, (5-9) mild depression, (10-14) moderate depression, (15-19) moderately severe depression, (20-27) severe depression DAVID-7 Total Score: 3 (05/21/2024 4:30 PM) (0-4) minimal anxiety, (5-9) mild anxiety, (10-14) moderate anxiety, (15-21) severe anxiety RISK ASSESSMENT: 1.) Wish to be : Have you wished you were or wished you could go to sleep and not wake up? NO 2.) Suicidal Thoughts: Have you actually had any thoughts of killing yourself? NO 3.) Suicide Behavior Question: Have you ever done anything, started to do anything, or prepared to do anything to end your life?NO IMPRESSION: 1..Bipolar 1 disorder, per history, in remission 2. Generalized anxiety disorder PLAN: Provided budget counselor and support. Encouraged ongoing use of coping skills, resiliency. Encouraged healthy and open communication. continue Zoloft 50 mg daily for depression, anxiety Continue Abilify 1.25 mg p.o. daily as historically prescribed as per prior documentation (denoted in italics): Due to cost issues ordered as Abilify 5 mg p.o. daily (patient cuts it into one fourths). Discussed about Abilify dose of 1.25 mg (not known to stabilize mood at such a low dose). Pt. Verbalized understanding. She's been on this dose for many years since working with Dr. Barton. Labs: reviewed available labs PDMP website checked and validated. All prescriptions have been APPROPRIATELY filled. No suspicious activity was identified. 05/22/2024 by Matt Ashraf, DO Patient understands and agrees with the plan: Yes Patient will return for follow-up appointment in 6 months time. If there are any problems in the interim, the patient will contact our clinic for an earlier appointment. For all medical and psychiatric emergencies, the patient will go to the nearest emergency room Return in about 6 months (around 11/23/2024). I spent a total of 30+ minutes on the date of the service which included preparing to see the patient, [id number] patient care, completing clinical documentation, obtaining and/or reviewing separately obtained history, performing a medically appropriate examination, counseling and educating the patient/family/caregiver, and ordering medications, tests, or procedures. Disclaimer: Portions of this note may have been generated using [employer] voice recognition software and is inherently subject to errors including those of syntax and sound-alike substitutions, reasonable efforts were made to correct any dictation errors that resulted due to the programming of this software but some may still be present which may escape proofreading. In such instances, original meaning may be extrapolated by contextual derivation. Electronically signed by Matt Ashraf DO May 22, 2024 2:52 PM Associated attestation - Rosanne Jimenez MD - 05/23/2024 2:36 PM EDT Teaching attending- indirect supervision note: Reviewed pt's chart and agree with residents assessment and plan. Rosanne Jimenez MD Adult and Geriatric Psychiatry documented in this encounter [facility] 10-30-2023 Note HNO ID: [id number] Author: Rowena Torres MD Service: ? Author Type: Physician Type: Progress Notes Filed: 10/30/2023 2:19 PM Note Text: Ashleigh Robin presents today for IUD check. She had a Mirena placed on 09/14/23. She has had spotting since placement. Like the first day of a period. No dyspareunia. No abnormal discharge. No fever or chills REVIEW OF SYSTEMS: no new c/o PHYSICAL EXAMINATION: LMP 08/18/2023 ABDOMEN:soft, non-tender, no masses, no hepatosplenomegaly, and no lymphadenopathy EXTERNAL GENITALIA: Normal genitalia and Bartholins, Urethra, Sken'e normal CERVIX: smooth, no lesions. IUD strings visible. UTERUS: normal size ADNEXA: negative for tenderness or masses brief TVUS shows IUD in proper location in endometrium IMPRESSION/PLAN: IUD correctly positioned. Some irreg bleeding, reassured common w/ Iudd if still bleeding in another 4 weeks or so consider trial of doxy. She is comfortable w/ plan Rowena Torres M.D. .Medical Decision Making: Problems: Low: 2+ self-limited or minor problems Data: Unique test result(s) reviewed: 1 Risk: Low: Low risk from testing/treatment Medical Decision Making Level: 3 - Low [facility] 10-05-2023 Note HNO ID: [id number] Author: Matt Ashraf DO Service: ? Author Type: Resident Type: Progress Notes Filed: 10/05/2023 3:26 PM Note Text: Attestation signed by Rosanne Jimenez MD at 10/05/2023 3:38 PM Teaching attending- indirect supervision note: Reviewed pt's chart and agree with residents assessment and plan. Rosanne Jimenez MD Adult and Geriatric Psychiatry [facility] PROGRESS NOTE PATIENT: Ashleigh Robin MRD: [id number] DATE: October 05, 2023 IDENTIFYING INFORMATION: Ashleigh is a 33 year old female with a history of bipolar 1 disorder, DAVID. Patient was referred by previous psych provider as transition of care. Initially seen on 07/28/21. CHIEF COMPLAINT: things have been going good SUBJECTIVE: Ashleigh is a 33 year old female with a history of bipolar 1 disorder, DAVID. Patient was referred by previous psych provider as transition of care. Initially seen on 07/28/21. The patient's last appointment with [facility] was on 04/04/23. Psychotropic medication regimen following that appointment included: Zoloft 50 mg daily, Abilify 1.25 mg daily. On encounter today, the patient reports things have been going good . Says she is on zoloft 40 mg and 1.25 mg Abilify. Going through a separation with right now. Feels down but also hopeful about the future. She denies experiencing any recent symptomatology consistent with mando/hypomania for several years. Patient reports mood has been ok. Decided to seperate with in July. Patient denies significant anhedonia. Reports fair motivation. Patient reports sleep is good. Patient states energy is energy throughout the day. Patient denies suicidal thoughts. Reports appetite is unchanged . Anxiety is reported as present, coincides with separation. She states that sentiments of the separation have been in the background over two years, was not a surprise to her. She decided she was no longer interested in pursuing fertility treatments. Ex- continued to want to pursue fertility treatments. They decided he will be best for both of them to separate. States that the separation was amicable and they are still supportive of each other. Regarding panic, patient denies. Things at work are good. Medication side effects: none Suicidal/Homicidal Thoughts/Plans: denies Substance Use History: Caffeine- 2-3 cups Nicotine- denies Alcohol- social THC- denies Denies illicit substance use VITAL SIGNS: LMP 08/18/2023 (Exact Date) LAB DATA: reviewed MENTAL STATUS EXAMINATION: Mental Status Exam: General/Sensorium: Alert - Appearance: Appears well groomed and stated age - Eye Contact: Appropriate eye contact - Demeanor: Appropriately interactive - Motor Activity: Normal - Speech: Appropriate - Mood: Denies mood concerns - Affect: Full range and Reactive - Thought Process: Linear, logical, and goal-directed - Associations: Normal - Thought Content: Appropriate with no SI/HI/AVH and Talking about future goals or plans - Perceptions: The patient does not appear internally stimulated - Cognition: Appears intact in regards to memory, attention/concentration, fund of knowledge and language skills - Insight: Fair - Judgment: Fair - RATING SCALES: PHQ-9 Score: 4 (10/03/2023 9:02 PM) (0-4) minimal depression, (5-9) mild depression, (10-14) moderate depression, (15-19) moderately severe depression, (20-27) severe depression DAVID-7 Total Score: 3 (10/03/2023 9:06 PM) (0-4) minimal anxiety, (5-9) mild anxiety, (10-14) moderate anxiety, (15-21) severe anxiety RISK ASSESSMENT: 1.) Wish to be : Have you wished you were or wished you could go to sleep and not wake up? NO 2.) Suicidal Thoughts: Have you actually had any thoughts of killing yourself? NO 3.) Suicide Behavior Question: Have you ever done anything, started to do anything, or prepared to do anything to end your life?NO IMPRESSION: 1..Bipolar 1 disorder, per history, in remission 2. Generalized anxiety disorder PLAN: Provided budget counselor and support. Encouraged ongoing use of coping skills, resiliency. Encouraged healthy and open communication. Continue Zoloft 50 mg daily for depression, anxiety Continue Abilify 1.25 mg p.o. daily as historically prescribed as per prior documentation (denoted in italics): Due to cost issues ordered as Abilify 5 mg p.o. daily (patient cuts it into one fourths). Discussed about Abilify dose of 1.25 mg (not known to stabilize mood at such a low dose). Pt. Verbalized understanding. She's been on this dose for many years since working with Dr. Barton. Labs: reviewed available labs PDMP website checked and validated. All prescriptions mancera (more content not included)... [facility] 10-05-2023 History of Presen t illness Narrative [facility]ICINE RESIDENT CLINIC PROGRESS NOTE PATIENT: Ashleigh Robin MRD: [id number] DATE: October 05, 2023 IDENTIFYING INFORMATION: Ashleigh is a 33 year old female with a history of bipolar 1 disorder, DAVID. Patient was referred by previous psych provider as transition of care. Initially seen on 07/28/21. CHIEF COMPLAINT: things have been going good SUBJECTIVE: Ashleigh is a 33 year old female with a history of bipolar 1 disorder, DAVID. Patient was referred by previous psych provider as transition of care. Initially seen on 07/28/21. The patient's last appointment with [facility]ry clinic was on 04/04/23. Psychotropic medication regimen following that appointment included: Zoloft 50 mg daily, Abilify 1.25 mg daily. On encounter today, the patient reports things have been going good . Says she is on zoloft 40 mg and 1.25 mg Abilify. Going through a separation with right now. Feels down but also hopeful about the future. She denies experiencing any recent symptomatology consistent with mando/hypomania for several years. Patient reports mood has been ok. Decided to seperate with in July. Patient denies significant anhedonia. Reports fair motivation. Patient reports sleep is good. Patient states energy is energy throughout the day. Patient denies suicidal thoughts. Reports appetite is unchanged . Anxiety is reported as present, coincides with separation. She states that sentiments of the separation have been in the background over two years, was not a surprise to her. She decided she was no longer interested in pursuing fertility treatments. Ex- continued to want to pursue fertility treatments. They decided he will be best for both of them to separate. States that the separation was amicable and they are still supportive of each other. Regarding panic, patient denies. Things at work are good. Medication side effects: none Suicidal/Homicidal Thoughts/Plans: denies Substance Use History: Caffeine- 2-3 cups Nicotine- denies Alcohol- social THC- denies Denies illicit substance use VITAL SIGNS: LMP 08/18/2023 (Exact Date) LAB DATA: reviewed MENTAL STATUS EXAMINATION: Mental Status Exam: General/Sensorium: Alert - Appearance: Appears well groomed and stated age - Eye Contact: Appropriate eye contact - Demeanor: Appropriately interactive - Motor Activity: Normal - Speech: Appropriate - Mood: Denies mood concerns - Affect: Full range and Reactive - Thought Process: Linear, logical, and goal-directed - Associations: Normal - Thought Content: Appropriate with no SI/HI/AVH and Talking about future goals or plans - Perceptions: The patient does not appear internally stimulated - Cognition: Appears intact in regards to memory, attention/concentration, fund of knowledge and language skills - Insight: Fair - Judgment: Fair - RATING SCALES: PHQ-9 Score: 4 (10/03/2023 9:02 PM) (0-4) minimal depression, (5-9) mild depression, (10-14) moderate depression, (15-19) moderately severe depression, (20-27) severe depression DAVID-7 Total Score: 3 (10/03/2023 9:06 PM) (0-4) minimal anxiety, (5-9) mild anxiety, (10-14) moderate anxiety, (15-21) severe anxiety RISK ASSESSMENT: 1.) Wish to be : Have you wished you were or wished you could go to sleep and not wake up? NO 2.) Suicidal Thoughts: Have you actually had any thoughts of killing yourself? NO 3.) Suicide Behavior Question: Have you ever done anything, started to do anything, or prepared to do anything to end your life?NO IMPRESSION: 1..Bipolar 1 disorder, per history, in remission 2. Generalized anxiety disorder PLAN: Provided budget counselor and support. Encouraged ongoing use of coping skills, resiliency. Encouraged healthy and open communication. Continue Zoloft 50 mg daily for depression, anxiety Continue Abilify 1.25 mg p.o. daily as historically prescribed as per prior documentation (denoted in italics): Due to cost issues ordered as Abilify 5 mg p.o. daily (patient cuts it into one fourths). Discussed about Abilify dose of 1.25 mg (not known to stabilize mood at such a low dose). Pt. Verbalized understanding. She's been on this dose for many years since working with Dr. Barton. Labs: reviewed available labs PDMP website checked and validated. All prescriptions have been APPROPRIATELY filled. No suspicious activity was identified. 10/05/2023 by Matt Ashraf DO Patient understands and agrees with the plan: Yes Patient will return for follow-up appointment in 30+ time. If there are any problems in the interim, the patient will contact our clinic for an earlier appointment. For all medical and psychiatric emergencies, the patient will go to the nearest emergency room Return in about 6 months (around 04/05/2024). I spent a total of 30+ minutes on the date of the service which included preparing to see the patient, [id number] patient care, completing clinical documentation, obtaining and/or reviewing separately obtained history, performing a medically appropriate examination, counseling and educating the patient/family/caregiver, and ordering medications, tests, or procedures. Disclaimer: Portions of this note may have been generated using [employer] voice recognition software and is inherently subject to errors including those of syntax and sound-alike substitutions, reasonable efforts were made to correct any dictation errors that resulted due to the programming of this software but some may still be present which may escape proofreading. In such instances, original meaning may be extrapolated by contextual derivation. Electronically signed by Matt Ashraf DO October 05, 2023 9:52 AM Associated attestation - Rosanne Jimenez MD - 10/05/2023 3:38 PM EST Teaching attending- indirect supervision note: Reviewed pt's chart and agree with residents assessment and plan. Rosanne Jimenez MD Adult and Geriatric Psychiatry documented in this encounter [facility] 09-14-2023 Note HNO ID: [id number] Author: Rowena Torres MD Service: ? Author Type: Physician Type: Progress Notes Filed: 09/14/2023 2:36 PM Note Text: Ashleigh presents today for IUD insertion for contraception. Patient's last menstrual period was 08/18/2023 (exact date). GC/chlamydia: Not done: no risk factors and/or patient declines screening test: negative Side effects including irregular bleeding were discussed with the patient. The patient understands that it should be removed in 8 years or sooner if the patient desires a . IUD source: office provided IUD lot #: [id number] Exp date: 07/28/2025 UNIVERSAL PROTOCOL / SAFETY CHECKLIST Procedure to be Performed: Mirena IUD insertion Sign In: A Moment of CARE was completed. Personnel directly involved with the procedure wore the appropriate PPE (Personal Protective Equipment). Patient/Surrogate Stated/Verified: PATIENT VERIFIED(optional for EMERGENT procedures): Patient name, Date of , Relevant allergies, and The intended procedure Time Out Communication: Intended patient and procedure match the source documents. Consent documented and matches the intended procedure. Implant(s) inserted: Correct implant(s) confirmed including size and side. and Expiration date(s) reviewed. Sign Out: SIGN OUT (optional for EMERGENT procedures): All specimen containers correctly labeled. All instruments, equipment, possible retained foreign bodies accounted for. Post-procedure follow-up management communicated and Plan of Care Visit completed when applicable. Rowena Torres M.D. The cervix was prepped with betadine. The uterus sounded to 8 cm and the uterus is Anteverted.. Using sterile technique, the Mirena IUD was inserted without difficulty and the string was cut to 2cm from the external os of the cervix. Patient tolerated procedure well. PLAN: Patient was advised to observe for signs and symptoms of infection including but not limited to fever, malodorous vaginal discharge and/or pain. The patient was told to check the string monthly for accurate placement. Bleeding expectations were reviewed. Follow up for annual or prn Rowena Torres MD [facility] 09-14-2023 Instructions Hilaria Kwok Ma - 09/14/2023 2:02 PM EST POST IUD INSTRUCTIONS You may have irregular bleeding during the first 3 months of use. You may have mild-severe cramping for the next 48 hours. You may use over the counter medication (Motrin, Tylenol) as needed. Your IUD must be removed or replaced based on the following table: IUD Type Removed or replaced within: Saundra 3 years Kyleena 5 years Mirena 8 years Liletta 8 years Paragard 10 years Call the office for signs/symptoms of infection such as severe cramping, fever, or unusual bleeding. Check for string placement as instructed by your doctor. If you have any additional questions, please contact the office. documented in this encounter [facility] 09-14-2023 History of Presen t illness Narrative Ashleigh presents today for IUD insertion for contraception. Patient's last menstrual period was 08/18/2023 (exact date). GC/chlamydia: Not done: no risk factors and/or patient declines screening test: negative Side effects including irregular bleeding were discussed with the patient. The patient understands that it should be removed in 8 years or sooner if the patient desires a . IUD source: office provided IUD lot #: [id number] Exp date: 07/28/2025 UNIVERSAL PROTOCOL / SAFETY CHECKLIST Procedure to be Performed: Mirena IUD insertion Sign In: A Moment of CARE was completed. Personnel directly involved with the procedure wore the appropriate PPE (Personal Protective Equipment). Patient/Surrogate Stated/Verified: PATIENT VERIFIED(optional for EMERGENT procedures): Patient name, Date of , Relevant allergies, and The intended procedure Time Out Communication: Intended patient and procedure match the source documents. Consent documented and matches the intended procedure. Implant(s) inserted: Correct implant(s) confirmed including size and side. and Expiration date(s) reviewed. Sign Out: SIGN OUT (optional for EMERGENT procedures): All specimen containers correctly labeled. All instruments, equipment, possible retained foreign bodies accounted for. Post-procedure follow-up management communicated and Plan of Care Visit completed when applicable. Rowena Torres M.D. The cervix was prepped with betadine. The uterus sounded to 8 cm and the uterus is Anteverted.. Using sterile technique, the Mirena IUD was inserted without difficulty and the string was cut to 2cm from the external os of the cervix. Patient tolerated procedure well. PLAN: Patient was advised to observe for signs and symptoms of infection including but not limited to fever, malodorous vaginal discharge and/or pain. The patient was told to check the string monthly for accurate placement. Bleeding expectations were reviewed. Follow up for annual or prn Rowena Torres MD documented in this encounter [facility] 08-29-2023 Note HNO ID: [id number] Author: Amalia Hay APRN.LEASE ADMINISTRATION SUPERVISOR Service: ? Author Type: Nurse Practitioner Type: Progress Notes Filed: 08/29/2023 1:08 PM Note Text: Software Test Manager offered: Patient declines. Ashleigh Robin is a 33 year old female who presents for vaginal discharge and odor for 2 week(s). Had yeast infection 6-8 weeks ago and treated with Monistat. Then noticed an odor beginning of July that lasted about 2 weeks as well as an increased amount of discharge. Feeling better today, but wants to be tested for BV and yeast. Vaginal discharge: none. Itching: No Dyspareunia: No Fever/chills: No Abdominal pain: No Bladder: Negative for dysuria or frequency Bowel: No blood in stool, pain with BM, tarry stool, persistent diarrhea or constipation Any new sexual partners or concern for STD exposure: No Any history of STDs: None Does your partner have any new complaints: No Are you currently taking any medications to treat vaginitis: No Do you use feminine sprays, douches or deodorants: No Menstrual cycle: cycles every 32 days and 2-3 days of flow Contraception: none Last pap: 2019, normal HPV negative Past medical, surgical, social history, medications and allergies reviewed and updated. OBJECTIVE: BP 110/70 Wt 189 lb 12.8 oz (86.1kg) LMP 08/18/2023 GENERAL: Well developed, well nourished in no apparent distress ABDOMEN: soft, non-tender, and no masses PELVIC: external genitalia normal, normal Bartholin's glands, urethra, Bacliff's glands, no vulvar lesions, no cervical lesions, good vaginal support, physiologic discharge present, normal appearing perineal body and perianal region BIMANUAL: uterus normal size, shape and consistency, no adnexal masses, and non-tender. RECTOVAGINAL: deferred. ASSESSMENT/PLAN: 1. Vaginal odor - ICD9: 625.8, ICD10: N89.8 (primary diagnosis) - BACTERIAL VAGINOSIS NAAT - BENI/TRICHOMONAS NAAT 2. Vaginal discharge - ICD9: 623.5, ICD10: N89.8 - Recommend [facility] probiotic - Cotton underwear - Neutral soaps 3. Encounter for counseling regarding contraception - ICD9: V25.09, ICD10: Z30.09 - Has had IUD before - Wants IUD again - No longer pursuing fertility due to separation - Reviewed r/b/a - Plan for insertion Coping with separation at this time. Has counselor and psychiatrist. Patient to notify if she needs additional mental health assistance. STD screening: Declined STD check. Any new medications given to the patient have been explained as to directions, reasons for prescribing and side effects. Perineal hygiene and safe sex were discussed with the patient. Medical Decision Making: Problems: Low: Acute, uncomplicated illness or injury Data: Unique test(s) ordered: 2 Risk: Minimal: Minimal risk from testing/treatment Medical Decision Making Level: 3 - Low Verenice Cisneros APRN.RICARDA Hay APRN.RICARDA [facility] 08-29-2023 History of Presen t illness Narrative Software Test Manager offered: Patient declines. Ashleigh Robin is a 33 year old female who presents for vaginal discharge and odor for 2 week(s). Had yeast infection 6-8 weeks ago and treated with Monistat. Then noticed an odor beginning of July that lasted about 2 weeks as well as an increased amount of discharge. Feeling better today, but wants to be tested for BV and yeast. Vaginal discharge: none. Itching: No Dyspareunia: No Fever/chills: No Abdominal pain: No Bladder: Negative for dysuria or frequency Bowel: No blood in stool, pain with BM, tarry stool, persistent diarrhea or constipation Any new sexual partners or concern for STD exposure: No Any history of STDs: None Does your partner have any new complaints: No Are you currently taking any medications to treat vaginitis: No Do you use feminine sprays, douches or deodorants: No Menstrual cycle: cycles every 32 days and 2-3 days of flow Contraception: none Last pap: 2019, normal HPV negative Past medical, surgical, social history, medications and allergies reviewed and updated. OBJECTIVE: BP 110/70 Wt 189 lb 12.8 oz (86.1kg) LMP 08/18/2023 GENERAL: Well developed, well nourished in no apparent distress ABDOMEN: soft, non-tender, and no masses PELVIC: external genitalia normal, normal Bartholin's glands, urethra, Bacliff's glands, no vulvar lesions, no cervical lesions, good vaginal support, physiologic discharge present, normal appearing perineal body and perianal region BIMANUAL: uterus normal size, shape and consistency, no adnexal masses, and non-tender. RECTOVAGINAL: deferred. ASSESSMENT/PLAN: 1. Vaginal odor - ICD9: 625.8, ICD10: N89.8 (primary diagnosis) - BACTERIAL VAGINOSIS NAAT - BENI/TRICHOMONAS NAAT 2. Vaginal discharge - ICD9: 623.5, ICD10: N89.8 - Recommend [facility] probiotic - Cotton underwear - Neutral soaps 3. Encounter for counseling regarding contraception - ICD9: V25.09, ICD10: Z30.09 - Has had IUD before - Wants IUD again - No longer pursuing fertility due to separation - Reviewed r/b/a - Plan for insertion Coping with separation at this time. Has counselor and psychiatrist. Patient to notify if she needs additional mental health assistance. STD screening: Declined STD check. Any new medications given to the patient have been explained as to directions, reasons for prescribing and side effects. Perineal hygiene and safe sex were discussed with the patient. Medical Decision Making: Problems: Low: Acute, uncomplicated illness or injury Data: Unique test(s) ordered: 2 Risk: Minimal: Minimal risk from testing/treatment Medical Decision Making Level: 3 - Low Verenice JOSEPH Cisneros APRN.RICARDA documented in this encounter [facility] 07-16-2023 Note HNO ID: [id number] Author: Elizabeth Roche APRN.CNP Service: ? Author Type: Nurse Practitioner Type: Progress Notes Filed: 07/16/2023 10:50 AM Note Text: SUBJECTIVE: Ashleigh Robin is a 33 year old female. Who presents today with L ear pain since last night. She has not had an ear infection since she was a kid. She started having pain and pressure last night. She has no other symptoms and no fever. She is flying to [place] in 2 days. HPI PAST MEDICAL HISTORY Diagnosis Date Asthma childhood, exersice/cold air Bipolar disorder (HCC) 06/24/2021 BRCA negative 06/07/2020 [facility] Common cancer gene panel Depression, major, recurrent, severe with psychosis (HCC) 06/30/20152012, she was hospitalized, for psychosis. Her took her to the hospital. She had paranoia, that she would loose her job. took her to the ER, then she was hospitalized for a week at [place], She was started on the abilify, she feels good now, Sees her psychiatrist once every 6 months- Dr.Adury Crowder. DAVID (generalized anxiety disorder) History of mando 2012 admitted [facility] History of pyelonephritis 07/2011 MDD (major depressive disorder) 2012 Scoliosis Seasonal allergies FAMILY HISTORY Problem Relation Age of Onset Heart Mother Diabetes Father Auto-Immune Disorder Father MS-didn't meet all criteria for diagnosis Anxiety disorder Father No Known Problems Brother Heart Maternal Grandmother pacemaker Alcohol/Drug Maternal Grandfather Cancer Paternal Grandmother ovarian Heart Paternal Grandfather Melanoma Maternal Aunt Melanoma Maternal Uncle Social History Tobacco Use Smoking status: Never Smokeless tobacco: Never Vaping Use Vaping Use: Never used Substance Use Topics Alcohol use: Yes Alcohol/week: 18.0 standard drinks of alcohol Types: 9 Standard drinks or equivalent, 9 Glasses of Wine (5oz) per week Comment: 9-12 drinks per week Drug use: No ALLERGIES Allergen Reactions Cats Other: See Comments nasal allergies Current Outpatient Medications Medication Sig Dispense Refill ARIPiprazole (ABILIFY) 5 mg tablet TAKE 1 TABLET BY MOUTH EVERY DAY 90 tablet 0 sertraline (ZOLOFT) 50 mg tablet Take 1 tablet by mouth once daily. 90 tablet 2 letrozole (FEMARA) 2.5 mg tablet Take 1 tablet by mouth once daily. Cycle day 3-7 5 tablet 3 Oaglnsew-Nt-Szt-Fe-FA tab Take 1 tablet by mouth once daily. With folic acid and DHA as covered by insurance (Patient not taking: Reported on 07/16/2023) 30 tablet 11 No current facility-administered medications for this visit. OBJECTIVE: BP 134/90 Pulse 91 Temp 37 ?C (98.6 ?F) Resp 21 Wt 88.3 kg (194 lb 9.6 oz) LMP 10/06/2022 (Exact Date) SpO2 97% BMI 28.12 kg/m? ROS all other systems reviewed and are negative Physical Exam Constitutional: Well developed, well nourished, NAD, AANDO X3. ENT: Head is atraumatic, airway patent, mucosal membranes moist. LTM red and buldging RTM with small amount of fluid Neck: supple with no palpable lymph nodes Cardiac: Heart tone normal rate and rhythm Respiratory: Breath sounds clear : no CVA tenderness MS: no swelling, tenderness or deformity in upper or lower extremities, no midline tenderness in cervical, thoracic or lumbar spine. Neuro: strength sensation and coordination intact. CN II-XII grossly intact, Skin: warm and dry with out rash, lesion or ecchymosis on exposed skin Psych: alert appropriate, speech clear It was a pleasure to take care of Ashleigh Robin today. For her ear infection I will send in amox. She may also use otc medications as discussed for pain and discomfort. Patient will follow up with family physician. They may return to the Urgent Care or go to the ER for worsening symptoms or concerns. Patient verbalized understanding of plan of care and is in agreement. ASSESSMENT/PLAN: 1. Acute otitis media, left - ICD9: 382.9, ICD10: H66.92 - AMOXICILLIN 500 MG TABLET Elizabeth Roche APRN.[facility] 07-16-2023 History of Presen t illness Narrative SUBJECTIVE: Ashleigh Robin is a 33 year old female. Who presents today with L ear pain since last night. She has not had an ear infection since she was a kid. She started having pain and pressure last night. She has no other symptoms and no fever. She is flying to [place] in 2 days. HPI PAST MEDICAL HISTORY Diagnosis Date Asthma childhood, exersice/cold air Bipolar disorder (HCC) 06/24/2021 BRCA negative 06/07/2020 [facility] Common cancer gene panel Depression, major, recurrent, severe with psychosis (HCC) 06/30/20152012, she was hospitalized, for psychosis. Her took her to the hospital. She had paranoia, that she would loose her job. took her to the ER, then she was hospitalized for a week at [place], She was started on the abilify, she feels good now, Sees her psychiatrist once every 6 months- Dr.Adury Crowder. DAVID (generalized anxiety disorder) History of amndo 2012 admitted [facility] History of pyelonephritis 07/2011 MDD (major depressive disorder) 2012 Scoliosis Seasonal allergies FAMILY HISTORY Problem Relation Age of Onset Heart Mother Diabetes Father Auto-Immune Disorder Father MS-didn't meet all criteria for diagnosis Anxiety disorder Father No Known Problems Brother Heart Maternal Grandmother pacemaker Alcohol/Drug Maternal Grandfather Cancer Paternal Grandmother ovarian Heart Paternal Grandfather Melanoma Maternal Aunt Melanoma Maternal Uncle Social History Tobacco Use Smoking status: Never Smokeless tobacco: Never Vaping Use Vaping Use: Never used Substance Use Topics Alcohol use: Yes Alcohol/week: 18.0 standard drinks of alcohol Types: 9 Standard drinks or equivalent, 9 Glasses of Wine (5oz) per week Comment: 9-12 drinks per week Drug use: No ALLERGIES Allergen Reactions Cats Other: See Comments nasal allergies Current Outpatient Medications Medication Sig Dispense Refill ARIPiprazole (ABILIFY) 5 mg tablet TAKE 1 TABLET BY MOUTH EVERY DAY 90 tablet 0 sertraline (ZOLOFT) 50 mg tablet Take 1 tablet by mouth once daily. 90 tablet 2 letrozole (FEMARA) 2.5 mg tablet Take 1 tablet by mouth once daily. Cycle day 3-7 5 tablet 3 Tnoqvtyc-Uy-Apl-Fe-FA tab Take 1 tablet by mouth once daily. With folic acid and DHA as covered by insurance (Patient not taking: Reported on 07/16/2023) 30 tablet 11 No current facility-administered medications for this visit. OBJECTIVE: BP 134/90 Pulse 91 Temp 37 C (98.6 F) Resp 21 Wt 88.3 kg (194 lb 9.6 oz) LMP 10/06/2022 (Exact Date) SpO2 97% BMI 28.12 kg/m ROS all other systems reviewed and are negative Physical Exam Constitutional: Well developed, well nourished, NAD, A&O X3. ENT: Head is atraumatic, airway patent, mucosal membranes moist. LTM red and buldging RTM with small amount of fluid Neck: supple with no palpable lymph nodes Cardiac: Heart tone normal rate and rhythm Respiratory: Breath sounds clear : no CVA tenderness MS: no swelling, tenderness or deformity in upper or lower extremities, no midline tenderness in cervical, thoracic or lumbar spine. Neuro: strength sensation and coordination intact. CN II-XII grossly intact, Skin: warm and dry with out rash, lesion or ecchymosis on exposed skin Psych: alert appropriate, speech clear It was a pleasure to take care of Ashleigh Robin today. For her ear infection I will send in amox. She may also use otc medications as discussed for pain and discomfort. Patient will follow up with family physician. They may return to the Urgent Care or go to the ER for worsening symptoms or concerns. Patient verbalized understanding of plan of care and is in agreement. ASSESSMENT/PLAN: 1. Acute otitis media, left - ICD9: 382.9, ICD10: H66.92 - AMOXICILLIN 500 MG TABLET Elizabeth Roche APRN.RICARDA documented [facility] 04-25-2023 Miscellaneous Notes Pharmacy [employer] message requesting the following refill. Requested Prescriptions Pending Prescriptions Disp Refills ARIPiprazole (ABILIFY) 5 mg tablet [Pharmacy Med Name: ARIPIPRAZOLE 5 MG TABLET] 90 tablet 0 Sig: TAKE 1 TABLET BY MOUTH EVERY DAY Patient last appointment: Visit date not found Patient Phone numbers: [phone] (home) [phone] (work) Request is for script(s) to be escript to pharmacy. Lori Morales documented in this encounter [facility] 04-05-2023 Miscellaneous Notes Refilled yesterday. Staying at previously prescribed dose. Pharmacy [employer] message requesting the following refill. Requested Prescriptions Pending Prescriptions Disp Refills ARIPiprazole (ABILIFY) 5 mg tablet [Pharmacy Med Name: ARIPIPRAZOLE 5 MG TABLET] 90 tablet 0 Sig: TAKE 1 TABLET BY MOUTH EVERY DAY Patient last appointment: 04/04/2023 Patient Phone numbers: [phone] (home) [phone] (work) Request is for script(s) to be escript to pharmacy. Lori Morales documented in this encounter [facility] 04-04-2023 Note HNO ID: [id number] Author: Rosanne Jimenez MD Service: ? Author Type: Physician Type: Progress Notes Filed: 04/04/2023 4:32 PM Note Text: [facility] MEDICINE PROGRESS NOTE PATIENT: Ashleigh Robin MRD: [id number] DATE: April 04, 2023 IDENTIFYING INFORMATION: Ashleigh is a 33 year old female with a history of bipolar 1 disorder, DAIVD. Patient was referred by previous psych provider as transition of care. Initially seen on 07/28/21. CHIEF COMPLAINT: doing well SUBJECTIVE: States that she's been doing well. She feels so much better after she and her decided to take a break from fertility treatment. She went through 2 cycles of IUI and it did not work out for them. It was frustrating. So they decided to take a break for now. States that her is extremely supportive. She denies any mood changes. Denies feeling anxious or depressed. Denies racing thoughts/flight of ideas/irritability/impulsivity or any reckless behavior. Compliant with meds and denies any side effects. Denies SI/HI/AH/VH. Med compliant and denies any s/e. States that Femara (medication she received during IUI cycles) made her cry a lot and since she stopped taking it, she feels back to feeling like herself. She and her are planning to go camping and are traveling this summer. Medication side effects: None Suicidal/Homicidal Thoughts/Plans: denies Substance Use History: Tobacco-quit 2 years back. Alcohol-socially THC-occasionally. Quit 2 years back Khyzlxwp-1-0 cups of coffee a day. VITAL SIGNS: LMP-03/14/23 LAB DATA: None new MENTAL STATUS EXAMINATION: Appearance: appears stated age, ,Female, well-built and nourished, normal clothing, grooming is Within Normal Limits Activity: Normal Behavior: Cooperative, Good eye contact Speech: spontaneous, Normal rate, Normal volume, Clear Mood: Euthymic Affect: appropriate to content Thought Process: logical, coherent and rational Thought Content: no paranoia/delusions noted, No suicidal ideation, intent or plan. No homicidal ideation, intent or plan. Coherent Thought perception: Denies AH/VH. Cognition: Orientation: Person, Place, Time and Situation Attention: Intact Concentration: Intact Language: Intact naming Estimated Intelligence: Good Memory: Intact recent memory, Intact remote memory Insight: good Judgement: good RATING SCALES: PHQ-9 Score: 1 (04/02/2023 3:50 PM) (0-4) minimal depression, (5-9) mild depression, (10-14) moderate depression, (15-19) moderately severe depression, (20-27) severe depression DAVID-7 Total Score: 3 (04/02/2023 3:50 PM) (0-4) minimal anxiety, (5-9) mild anxiety, (10-14) moderate anxiety, (15-21) severe anxiety RISK ASSESSMENT: [place] SUICIDE SEVERITY RATING SCALE 1.) Wish to be : Have you wished you were or wished you could go to sleep and not wake up? NO 2.) Suicidal Thoughts: Have you actually had any thoughts of killing yourself? NO 6.) Suicide Behavior Question: Have you ever done anything, started to do anything, or prepared to do anything to end your life?NO IMPRESSION: 33 year-old female with medical history significant for asthma, scoliosis, seasonal allergie and psych history significant for bipolar 1 disorder and DAVID, presents today for follow up. Symptoms of bipolar disorder continue to be in remission. Diagnoses: Bipolar 1 disorder, in remission Generalized anxiety disorder PLAN: Continue Zoloft 50 mg p.o. daily for depression, anxiety Continue Abilify 1.25 mg p.o. daily as previously prescribed for mood stabilization, augmentation. Due to cost issues ordered as Abilify 5 mg p.o. daily (patient cuts it into one fourths). Discussed about Abilify dose of 1.25 mg (not known to stabilize mood at such a low dose). Pt. Verbalized understanding. She's been on this dose for many years since working with Dr. Barton. Risks, benefits, adverse effects and drug drug interactions of above meds discussed. Discussed in detail regarding safety of Zoloft and Abilify use in . Previously given reading material regarding use of Abilify in (unclear data, usually not recommended). Weighing the risks and benefits, it was decided that she continue Abilify (h/o relapse when Abilify was discontinued). Patient gives verbal permission to be registered in National Registry for Atypical Antipsychotics, once is confirmed. Medication changes: None Labs: None Provided supportive psychotherapy. Sees someone in [facility] for individual counseling as needed. PDMP website checked and validated. All prescriptions have been APPROPRIATELY filled. No suspicious activity was identified. 04/04/2023 by Rosanne Jimenez MD Patient understands and agrees with the plan: Yes Patient will return for follow-up appointment in 6 months time. If there are any problems in the (more content not included)... [facility] 04-04-2023 History of Presen t illness Narrative [facility] BEHAVIORAL MEDICINE PROGRESS NOTE PATIENT: Ashleigh Robin MRD: [id number] DATE: April 04, 2023 IDENTIFYING INFORMATION: Ashleigh is a 33 year old female with a history of bipolar 1 disorder, DAVID. Patient was referred by previous psych provider as transition of care. Initially seen on 07/28/21. CHIEF COMPLAINT: doing well SUBJECTIVE: States that she's been doing well. She feels so much better after she and her decided to take a break from fertility treatment. She went through 2 cycles of IUI and it did not work out for them. It was frustrating. So they decided to take a break for now. States that her is extremely supportive. She denies any mood changes. Denies feeling anxious or depressed. Denies racing thoughts/flight of ideas/irritability/impulsivity or any reckless behavior. Compliant with meds and denies any side effects. Denies SI/HI/AH/VH. Med compliant and denies any s/e. States that Femara (medication she received during IUI cycles) made her cry a lot and since she stopped taking it, she feels back to feeling like herself. She and her are planning to go camping and are traveling this summer. Medication side effects: None Suicidal/Homicidal Thoughts/Plans: denies Substance Use History: Tobacco-quit 2 years back. Alcohol-socially THC-occasionally. Quit 2 years back Uqsobheo-7-0 cups of coffee a day. VITAL SIGNS: LMP-03/14/23 LAB DATA: None new MENTAL STATUS EXAMINATION: Appearance: appears stated age, ,Female, well-built and nourished, normal clothing, grooming is Within Normal Limits Activity: Normal Behavior: Cooperative, Good eye contact Speech: spontaneous, Normal rate, Normal volume, Clear Mood: Euthymic Affect: appropriate to content Thought Process: logical, coherent and rational Thought Content: no paranoia/delusions noted, No suicidal ideation, intent or plan. No homicidal ideation, intent or plan. Coherent Thought perception: Denies AH/VH. Cognition: Orientation: Person, Place, Time and Situation Attention: Intact Concentration: Intact Language: Intact naming Estimated Intelligence: Good Memory: Intact recent memory, Intact remote memory Insight: good Judgement: good RATING SCALES: PHQ-9 Score: 1 (04/02/2023 3:50 PM) (0-4) minimal depression, (5-9) mild depression, (10-14) moderate depression, (15-19) moderately severe depression, (20-27) severe depression DAVID-7 Total Score: 3 (04/02/2023 3:50 PM) (0-4) minimal anxiety, (5-9) mild anxiety, (10-14) moderate anxiety, (15-21) severe anxiety RISK ASSESSMENT: [place] SUICIDE SEVERITY RATING SCALE 1.) Wish to be : Have you wished you were or wished you could go to sleep and not wake up? NO 2.) Suicidal Thoughts: Have you actually had any thoughts of killing yourself? NO 6.) Suicide Behavior Question: Have you ever done anything, started to do anything, or prepared to do anything to end your life?NO IMPRESSION: 33 year-old female with medical history significant for asthma, scoliosis, seasonal allergie and psych history significant for bipolar 1 disorder and DAVID, presents today for follow up. Symptoms of bipolar disorder continue to be in remission. Diagnoses: Bipolar 1 disorder, in remission Generalized anxiety disorder PLAN: Continue Zoloft 50 mg p.o. daily for depression, anxiety Continue Abilify 1.25 mg p.o. daily as previously prescribed for mood stabilization, augmentation. Due to cost issues ordered as Abilify 5 mg p.o. daily (patient cuts it into one fourths). Discussed about Abilify dose of 1.25 mg (not known to stabilize mood at such a low dose). Pt. Verbalized understanding. She's been on this dose for many years since working with Dr. Barton. Risks, benefits, adverse effects and drug drug interactions of above meds discussed. Discussed in detail regarding safety of Zoloft and Abilify use in . Previously given reading material regarding use of Abilify in (unclear data, usually not recommended). Weighing the risks and benefits, it was decided that she continue Abilify (h/o relapse when Abilify was discontinued). Patient gives verbal permission to be registered in National Registry for Atypical Antipsychotics, once is confirmed. Medication changes: None Labs: None Provided supportive psychotherapy. Sees someone in [facility] for individual counseling as needed. PDMP website checked and validated. All prescriptions have been APPROPRIATELY filled. No suspicious activity was identified. 04/04/2023 by Rosanne Jimenez MD Patient understands and agrees with the plan: Yes Patient will return for follow-up appointment in 6 months time. If there are any problems in the interim, the patient will contact our clinic for an earlier appointment. For all medical and psychiatric emergencies, the patient will go to the nearest emergency room. I spent a total of 30 minutes on the date of the service which included preparing to see the patient, [id number] patient care, completing clinical documentation, obtaining and/or reviewing separately obtained history, performing a medically appropriate examination, counseling and educating the patient/family/caregiver, ordering medications, tests, or procedures, and care coordination (not separately reported). Electronically signed by Rosanne Jimenez MD April 04, 2023 3:32 PM documented in this encounter [facility] 01-27-2023 Note HNO ID: [id number] Author: Nikki Cohen APRN.CNP Service: ? Author Type: Nurse Practitioner Type: Procedures Filed: 01/27/2023 10:29 AM Note Text: [facility] IUI PROCEDURE NOTE Date: 01/27/2023 Primary Proceduralist: Nikki Cohen APRN.CNP Consents and Labels Consent Signed: Informed Consent obtained and on the chart Labels Verified With Patient: Yes Indications: Ashleigh Robin, is a 32 year old female here today for intrauterine insemination. IUI # 2. Cycle Day: 18 Last menstrual period: 01/10/2023 [place] Protocol: UNIVERSAL PROTOCOL / SAFETY CHECKLIST Procedure to be Performed: IUI #2 completed @ 10:12 am Sign In: A Moment of CARE was completed. Personnel directly involved with the procedure wore the appropriate PPE (Personal Protective Equipment). No special equipment needed. Patient/Surrogate Stated/Verified: PATIENT VERIFIED(optional for EMERGENT procedures): Patient name, Date of , Relevant allergies, and The intended procedure Time Out Communication: Intended patient and procedure match the source documents. Consent documented and matches the intended procedure. Sign Out: SIGN OUT (optional for EMERGENT procedures): No specimen collected. All instruments, equipment, possible retained foreign bodies accounted for. Post-procedure follow-up management communicated and Plan of Care Visit completed when applicable. Nikki Cohen APRN.CNP IUI IUI Date: 01/27/23 IUI #: 2 Pre-Procedure Diagnosis: Infertility Post-Procedure Diagnosis: Infertility Cycle Meds: Letrozole 2.5 mg Trigger: LH Surge Date Catheter Type: Curve catheter Tenaculum: No Catheter passed: Easy Complications: None Sperm Information: Source of Sperm: Partner Ejaculated: Yes Fresh/Frozen: Fresh TMC (total motile count of sperm after wash): 16.8 million Cycle reviewed, all questions answered. Pt instructed to take a test in 17 days if no menses and call with results. SIGNATURE: Nikkiedilberto Cohen APRN.CNP PATIENT NAME: Ashleigh Robin DATE: January 27, 2023 TIME: 10:28 AM [facility] 01-27-2023 Note HNO ID: [id number] Author: Lilly Lang Service: ? Author Type: Fitness Floor Attendant Type: Progress Notes Filed: 01/27/2023 10:30 AM Note Text: IUI Pre: 56 m/ml, 82% Post: 44 m/ml, 96% Insem # 16.8 million [facility] 01-27-2023 Note HNO ID: [id number] Author: Lilly Lang Service: ? Author Type: Fitness Floor Attendant Type: Progress Notes Filed: 01/27/2023 10:30 AM Note Text: IUI specimen released to provider Lilly Lang January 27, 2023 10:10 AM [facility] 01-27-2023 Procedure note [facility]I AVA IUI PROCEDURE NOTE Date: 01/27/2023 Primary Proceduralist: Nikki Cohen APRN.CNP Consents and Labels Consent Signed: Informed Consent obtained and on the chart Labels Verified With Patient: Yes Indications: Ashleigh Robin, is a 32 year old female here today for intrauterine insemination. IUI # 2. Cycle Day: 18 Last menstrual period: 01/10/2023 [place] Protocol: UNIVERSAL PROTOCOL / SAFETY CHECKLIST Procedure to be Performed: IUI #2 completed @ 10:12 am Sign In: A Moment of CARE was completed. Personnel directly involved with the procedure wore the appropriate PPE (Personal Protective Equipment). No special equipment needed. Patient/Surrogate Stated/Verified: PATIENT VERIFIED(optional for EMERGENT procedures): Patient name, Date of , Relevant allergies, and The intended procedure Time Out Communication: Intended patient and procedure match the source documents. Consent documented and matches the intended procedure. Sign Out: SIGN OUT (optional for EMERGENT procedures): No specimen collected. All instruments, equipment, possible retained foreign bodies accounted for. Post-procedure follow-up management communicated and Plan of Care Visit completed when applicable. Nikki Cohen APRN.CNP IUI IUI Date: 01/27/23 IUI #: 2 Pre-Procedure Diagnosis: Infertility Post-Procedure Diagnosis: Infertility Cycle Meds: Letrozole 2.5 mg Trigger: LH Surge Date Catheter Type: Curve catheter Tenaculum: No Catheter passed: Easy Complications: None Sperm Information: Source of Sperm: Partner Ejaculated: Yes Fresh/Frozen: Fresh TMC (total motile count of sperm after wash): 16.8 million Cycle reviewed, all questions answered. Pt instructed to take a test in 17 days if no menses and call with results. SIGNATURE: Nikki Cohen APRN.CNP PATIENT NAME: Ashleigh Robin DATE: January 27, 2023 TIME: 10:28 AM documented in this [facility] 01-27-[facility]23 History of Presen t illness Narrative IUI Pre: 56 m/ml, 82% Post: 44 m/ml, 96% Insem # 16.8 million IUI specimen released to provider Lilly Lang January 27, 2023 10:10 AM documented in this encounter [facility] 01-11-2023 Miscellaneous Notes Called the pt and notified that the Letrozole has been sent to that [facility] yesterday. Pt will call the pharmacy next. Aisha Lemos PA-C January 11, 2023 8:59 AM Please send to [facility] in [place] on [address], needs to start it tomorrow please follow up with patient when called in. documented in this encounter [facility] 01-10-2023 Miscellaneous Notes Pt has completed Natural cycle/IUI Started period today, 01/10/23. Plan from 11/27/22 PLAN: LET 7.5 mg CD 3-7 OPK or Follicular monitoring IUI Maximum 3-4 ovulatory cycles; thereafter, if no conception has occurred, schedule a virtual visit to discuss additional work up, if any, and future treatment options Pt is willing to try Let/ IUI States she has tried Let 2.5/OPK/TI last year (through her [employer] doc), and was able to miner pick + OPK. SC: Dr. Davalos, please advised on the proper dose of Letrozole for this pt. Please schedule the patient for the following- Please provide financial clearance for IUI for this pt. Aisha Lemos PA-C January 10, 2023 3:[address] Davalos agreed to start with Let 2.5mg for now. MC sent to the pt , with instructions Aisha Lemos PA-C January 10, 2023 3:49 PM Failed iui next steps documented in this encounter [facility] 12-26-2022 Note HNO ID: [id number] Author: Claritza Angulo Service: ? Author Type: ? Type: Progress Notes Filed: 12/29/2022 6:06 PM Note Text: IUI WASH PRE: 36 MILLION/ML, 77% POST: 9 MILLION/ML, 94% FINAL INSEM #: 3.4 MILLION Claritza Angulo [facility] 12-26-2022 Note HNO ID: [id number] Author: Claritza Angulo Service: ? Author Type: ? Type: Progress Notes Filed: 12/29/2022 6:06 PM Note Text: IUI specimen released to provider Claritza Angulo December 26, 2022 3:08 PM [facility] 12-26-2022 History of Presen t illness Narrative IUI WASH PRE: 36 MILLION/ML, 77% POST: 9 MILLION/ML, 94% FINAL INSEM #: 3.4 MILLION Claritza Angulo IUI specimen released to provider Claritza Angulo December 26, 2022 3:08 PM documented in this encounter [facility] 12-26-2022 Note HNO ID: [id number] Author: Adelina Hudson APRN.CNP Service: ? Author Type: Nurse Practitioner Type: Procedures Filed: 12/29/2022 6:14 PM Note Text: WHI AVA IUI PROCEDURE NOTE Date: 12/26/2022 Primary Proceduralist: Adelina Hudson APRN.CNP Consents and Labels Consent Signed: Informed Consent obtained and on the chart Labels Verified With Patient: Yes Indications: Ashleigh Robin, is a 32 year old female here today for intrauterine insemination. IUI # 1. Cycle Day: 20 Last menstrual period: 12/07/2022 [place] Protocol: UNIVERSAL PROTOCOL / SAFETY CHECKLIST Procedure to be Performed: IUI IUI performed at 3:17pm Sign In: A Moment of CARE was completed. Personnel directly involved with the procedure wore the appropriate PPE (Personal Protective Equipment). Patient/Surrogate Stated/Verified: PATIENT VERIFIED(optional for EMERGENT procedures): Patient name, Date of , Relevant allergies, and The intended procedure Time Out Communication: Intended patient and procedure match the source documents. Consent documented and matches the intended procedure. Sign Out: SIGN OUT (optional for EMERGENT procedures): No specimen collected. All instruments, equipment, possible retained foreign bodies accounted for. Adelina Hudson APRN.CNP IUI IUI Date: 12/26/22 IUI #: 1 Pre-Procedure Diagnosis: Infertility Post-Procedure Diagnosis: Infertility Cycle Meds: Natural Cycle Luteal Phase Progesterone: N/A Trigger: LH Surge Date Catheter Type: Unisem catheter Tenaculum: No Catheter passed: Easy Complications: None Sperm Information: Source of Sperm: Partner Ejaculated: Yes Fresh/Frozen: Fresh TMC (total motile count of sperm after wash): 3.4 million Cycle reviewed, all questions answered. Pt instructed to take a test in 17 days if no menses and call with results. Late ovulation. consider starting Letrozole if not this cycle. It's in Dr. Davalos's plan, but patient did natural cycle. SIGNATURE: Adelina Hudson APRN.CNP PATIENT NAME: Ashleigh Robin DATE: December 29, 2022 TIME: 6:01 PM [facility] 12-26-2022 Procedure note WHI AVA IUI PROCEDURE NOTE Date: 12/26/2022 Primary Proceduralist: Adelina Hudson APRN.CNP Consents and Labels Consent Signed: Informed Consent obtained and on the chart Labels Verified With Patient: Yes Indications: Ashleigh Robin, is a 32 year old female here today for intrauterine insemination. IUI # 1. Cycle Day: 20 Last menstrual period: 12/07/2022 [place] Protocol: UNIVERSAL PROTOCOL / SAFETY CHECKLIST Procedure to be Performed: IUI IUI performed at 3:17pm Sign In: A Moment of CARE was completed. Personnel directly involved with the procedure wore the appropriate PPE (Personal Protective Equipment). Patient/Surrogate Stated/Verified: PATIENT VERIFIED(optional for EMERGENT procedures): Patient name, Date of , Relevant allergies, and The intended procedure Time Out Communication: Intended patient and procedure match the source documents. Consent documented and matches the intended procedure. Sign Out: SIGN OUT (optional for EMERGENT procedures): No specimen collected. All instruments, equipment, possible retained foreign bodies accounted for. Adelina Hudson APRN.CNP IUI IUI Date: 12/26/22 IUI #: 1 Pre-Procedure Diagnosis: Infertility Post-Procedure Diagnosis: Infertility Cycle Meds: Natural Cycle Luteal Phase Progesterone: N/A Trigger: LH Surge Date Catheter Type: Unisem catheter Tenaculum: No Catheter passed: Easy Complications: None Sperm Information: Source of Sperm: Partner Ejaculated: Yes Fresh/Frozen: Fresh TMC (total motile count of sperm after wash): 3.4 million Cycle reviewed, all questions answered. Pt instructed to take a test in 17 days if no menses and call with results. Late ovulation. consider starting Letrozole if not this cycle. It's in Dr. Davalos's plan, but patient did natural cycle. SIGNATURE: Adelina Hudson APRN.CNP PATIENT NAME: Ashleigh Robin DATE: December 29, 2022 TIME: 6:01 PM documented in this encounter [facility] 12-25-2022 Miscellaneous Notes unable to reach, left message to return my call, can schedule same day at [place] tomorrow if she wishes. Ne Gregg APRN.CNP December 25, 2022 4:46 PM Pt tested for ovulation this morning it was negative , tested this afternoon and was positive , pt was wondering if she should come in tomorrow for iui? documented in this encounter [facility] 11-27-2022 Consult note Formatting of th is note is different from the original. VIRTUAL VISIT PROGRESS NOTE This is a virtual visit using [employer] video visit. It required patient-provider interaction for the medical decision making as documented below. Date of Consult: 11/27/2022 Consultation Requested By: Self-referred Ashleigh oRbin is a 32 year old female presenting with the following history: HISTORY OF PRESENT ILLNESS: Ashleigh Robin is a 32 year old female Attempting to conceive since IUD removal 05/2021 Menstrual cycle irregularity: 28-31 cycle interval. OPK+ CD 18-19 PMHx: 30.8. Bipolar disorder. UTI PSHx: Bunionectomy OBHx: Denies Meds: MVI Desire for future fertility LET X4 cycles: Failed to conceive Wants pursue LET + IUI Discussed Laparoscopy and other testing considerations 33 year old male partner without proven fertility PMHx: Hiatal hernia. DAVID. Depression PSHx: Denies Meds: Anxiety and depression medications SA: Not completed to date Obstetric History T0 L0 SAB0 IAB0 Ectopic0 Multiple0 Live Births0 Fertility Evaluations and Treatments: Eval Checklist Results Date Comments HSG Not done Hysteroscopy Not done Laparoscopy Not done OPK (Ovulation Predictor Kit) Not done Ovarian [place] Not done [place] Ultrasound Not done Semen Analysis Not done Ultrasound Not done Other (See comments) Not done MENSTRUAL HISTORY: Menarche Age: Length of Cycle: Days: Menstrual Flow: Menstrual Symptoms: Patient's last menstrual period was 10/06/2022 (exact date). PAST MEDICAL HISTORY Diagnosis Date Asthma childhood, exersice/cold air Bipolar disorder (HCC) 06/24/2021 BRCA negative 06/07/2020 [facility] Common cancer gene panel Depression, major, recurrent, severe with psychosis (HCC) 06/30/20152012, she was hospitalized, for psychosis. Her took her to the hospital. She had paranoia, that she would loose her job. took her to the ER, then she was hospitalized for a week at [place], She was started on the abilify, she feels good now, Sees her psychiatrist once every 6 months- Dr.Adury Crowder. DAVID (generalized anxiety disorder) History of mando 2012 admitted [facility] History of pyelonephritis 07/2011 MDD (major depressive disorder) 2012 Scoliosis Seasonal allergies PAST SURGICAL HISTORY Procedure Laterality Date CORRECT BUNION,SIMPLE 10/29/2001 right HSG Bilateral 05/15/2022 B/l tubal patency- Dr. Carpio [facility] PAST SURGICAL HISTORY OF oral skin graft, receeding gums, age 14 FAMILY HISTORY Problem Relation Age of Onset Heart Mother Diabetes Father Auto-Immune Disorder Father MS-didn't meet all criteria for diagnosis Anxiety disorder Father No Known Problems Brother Heart Maternal Grandmother pacemaker Alcohol/Drug Maternal Grandfather Cancer Paternal Grandmother ovarian Heart Paternal Grandfather Melanoma Maternal Aunt Melanoma Maternal Uncle ETHNICITY: White GENETIC HISTORY: NA OCCUPATION/EXERCISE: Occupation: Exercise: Partner Information Partner's Name: Partner's : Partner's MRN: Partner's Ethnicity: NOT or Partner's Race: White MEDICATIONS: Current Outpatient Medications on File Prior to Visit Medication Sig ARIPiprazole (ABILIFY) 5 mg tablet Take 1 tablet by mouth once daily. sertraline (ZOLOFT) 50 mg tablet Take 1 tablet by mouth once daily. Onmyhskn-Ew-Ylv-Fe-FA tab Take 1 tablet by mouth once daily. With folic acid and DHA as covered by insurance No current facility-administered medications on file prior to visit. ALLERGIES: Cats Blood Type: NA ASSESSMENT: 32 year old female Attempting to conceive since IUD removal 05/2021 Menstrual cycle irregularity: 28-31 cycle interval. OPK+ CD 18-19 PMHx: 30.8. Bipolar disorder. UTI PSHx: Bunionectomy OBHx: Denies Meds: MVI Desire for future fertility LET X4 cycles: Failed to conceive Wants pursue LET + IUI Discussed Laparoscopy and other testing considerations 33 year old male partner without proven fertility PMHx: Hiatal hernia. DAVID. Depression PSHx: Denies Meds: Anxiety and depression medications SA: Not completed to date PLAN: LET 7.5 mg CD 3-7 OPK or Follicular monitoring IUI Maximum 3-4 ovulatory cycles; thereafter, if no conception has occurred, schedule a virtual visit to discuss additional work up, if any, and future treatment options Initial evaluation: Hormone values: Normal HSG: Normal 04/2022 Pelvic US: Normal 04/2022 SA: Normal Follow-up visit: In-person office visit or virtual visit to review and discuss initial work-up results to determine treatment plan I spent a total of 60 minutes on the date of the service which included preparing to see the patient, [id number] patient care, completing clinical documentation, obtaining and/or reviewing separately obtained history, counseling and educating the patient/family/caregiver, ordering medications, tests, or procedures, independently interpreting results (not separately reported), and communicating results to the patient/family/caregiver. Jessee Davalos MD November 27, 2022 3:03 PM documented in [facility] encounter [facility] 10-27-[facility]22 History of Presen t illness Narrative This note was created using [employer]riter. Subjective Patient presents with: Yearly Exam Ashleigh Robin is a 32 year old female I am meeting for the first time. She felt well and her mood disorder was well controlled. We reviewed social determinants of health. She sees Dr. Jimenez for mental health, Dr. Carpio for gynecology, optometry for contact lenses, and [facility] for check ups. She was scheduled for further fertility evaluations. Review of Systems Constitutional: Negative. HENT: Negative. Respiratory: Negative. Cardiovascular: Negative. Gastrointestinal: Negative. Genitourinary: Negative. Neurological: Negative. ACTIVE PROBLEM LIST Seasonal Allergies Depression, Major, Recurrent, Severe With Psychosis (Hcc) Bipolar Disorder (Hcc) Family History of Ovarian Cancer PAST MEDICAL HISTORY Diagnosis Date Asthma childhood, exersice/cold air Bipolar disorder (HCC) 06/24/2021 BRCA negative 06/07/2020 [facility] Common cancer gene panel Depression, major, recurrent, severe with psychosis (HCC) 06/30/20152012, she was hospitalized, for psychosis. Her took her to the hospital. She had paranoia, that she would loose her job. took her to the ER, then she was hospitalized for a week at [place], She was started on the abilify, she feels good now, Sees her psychiatrist once every 6 months- Dr.Adury Crowder. DAVID (generalized anxiety disorder) History of mando 2012 admitted [facility] History of pyelonephritis 07/2011 MDD (major depressive disorder) 2012 Scoliosis Seasonal allergies PAST SURGICAL HISTORY Procedure Laterality Date CORRECT BUNION,SIMPLE 10/29/2001 right HSG Bilateral 05/15/2022 B/l tubal patency- Dr. Carpio [facility] PAST SURGICAL HISTORY OF oral skin graft, receeding gums, age 14 FAMILY HISTORY Problem Relation Age of Onset Heart Mother Diabetes Father Auto-Immune Disorder Father MS-didn't meet all criteria for diagnosis Anxiety disorder Father No Known Problems Brother Heart Maternal Grandmother pacemaker Alcohol/Drug Maternal Grandfather Cancer Paternal Grandmother ovarian Heart Paternal Grandfather Melanoma Maternal Aunt Melanoma Maternal Uncle Social History Tobacco Use Smoking status: Never Smokeless tobacco: Never Vaping Use Vaping Use: Never used Substance Use Topics Alcohol use: Yes Alcohol/week: 18.0 standard drinks Types: 9 Standard drinks or equivalent, 9 Glasses of Wine (5oz) per week Comment: 9-12 drinks per week Drug use: No ALLERGIES Allergen Reactions Cats Other: See Comments nasal allergies Current Outpatient Medications Medication Sig ARIPiprazole (ABILIFY) 5 mg tablet Take 1 tablet by mouth once daily. sertraline (ZOLOFT) 50 mg tablet Take 1 tablet by mouth once daily. Jzkjwual-Wa-Isr-Fe-FA tab Take 1 tablet by mouth once daily. With folic acid and DHA as covered by insurance No current facility-administered medications for this visit. Objective BP 120/80 Pulse 82 Temp 36.2 C (97.2 F) Resp 16 Ht 177.2 cm (5' 9.75 ) Wt 96.6 kg (213 lb) LMP 10/06/2022 (Exact Date) SpO2 96% BMI 30.78 kg/m Physical Exam Constitutional: Appearance: Normal appearance. She is not ill-appearing. HENT: Head: Normocephalic. Eyes: Conjunctiva/sclera: Conjunctivae normal. Cardiovascular: Rate and Rhythm: Normal rate and regular rhythm. Heart sounds: No murmur heard. No gallop. Pulmonary: Effort: Pulmonary effort is normal. Breath sounds: Normal breath sounds. Abdominal: Palpations: Abdomen is soft. Tenderness: There is no abdominal tenderness. Musculoskeletal: Cervical back: Neck supple. Right lower leg: No edema. Left lower leg: No edema. Lymphadenopathy: Cervical: No cervical adenopathy. Neurological: Mental Status: She is alert. Gait: Gait normal. Psychiatric: Mood and Affect: Mood normal. Behavior: Behavior normal. Thought Content: Thought content normal. Assessment and Plan 1. Routine medical exam - ICD9: V70.0, ICD10: Z00.00 (primary diagnosis) - Counseled on healthy diet and regular exercise - Discussed need and benefit for weight loss. BMI 30.78 kg/(m^2) - Counseled patient on limiting alcohol intake to 2 drink per day - Follow up for annual exam in one year - BASIC METABOLIC PNL 2. Encounter for screening for diabetes mellitus - ICD9: V77.1, ICD10: Z13.1 - BASIC METABOLIC PNL Bimal Terrazas MD documented in this encounter [facility] 10-16-2022 Instructions Tiffany Dickens APRN.CNM - 10/16/2022 11:51 AM EST ACOG Screening Guidelines The following health screening schedule is recommended by the [employer] (ACOG). Some of these tests may be ordered or performed by your primary care doctor. Pap test screening The pap test looks at cells on the cervix (the opening from the vagina to the uterus) to look for cancer or pre-cancerous changes. These changes are caused by the human papillomavirus (HPV). Studies estimate that half of all women will test positive for this virus within 3 years of starting sexual activity. For young women with a normal immune system, 90% of HPV infections will resolve within 2 years. There is a vaccine available against some forms of HPV. This is recommended for girls and women age 9-45. For ages 9-14, two injections are given at 0 and 6 months. For ages 15-45, three injections are given at 0,2 and 6 months. Because this vaccine does not protect against all HPV types which can cause cervical cancer, women who received the vaccine still need pap tests. Pap smear screening should be started at age 21. The pap test should be done every 3 years from age 21-29. From age 30-65, pap smears can be done every 5 years if HPV test is negative or every 3 years if HPV testing is not done. For women over the age of 65, ACOG recommends against screening women who have had adequate prior screening and are not otherwise at high risk for cervical cancer. Women who have had a hysterectomy also do not need routine pap smear screening unless the pap smear was done for a cervical cancer or moderate to severe dysplasia. Breast cancer screening Mammogram should be performed every 1-2 years starting at age 40 and every year starting at age 50. Screening may be started earlier depending on family history. Cholesterol screening Lipid panel (cholesterol test) should be checked every 5 years starting at age 45. Diabetes screening Fasting glucose (blood sugar) test should be performed every 3 years starting at age 45. Colorectal cancer screening Starting at age 45, women should have a screening colonoscopy at least every 10 years. Screening may be started earlier depending on family history. Thyroid screening Thyroid function test (TSH) should be checked every 5 years starting at age 50. Bone mineral density screening All postmenopausal women age 65 and over and postmenopausal women with risk factors for osteoporosis should have a bone mineral density test performed. Risk factors include race, family history of osteoporosis, personal history of fractures, poor nutrition, smoking, heavy alcohol use, early menopause, low calcium intake and low body weight. Certain medical conditions and long-term use of some medications may also increase risk. Body max Index (BMI) Your body mass index (BMI) is a measure of your body fat based on your weight and height. The number that is calculated will tell you if you fall into the normal, overweight or obese category. BMI Table Normal weight: BMI is between 19 and 24.9 Overweight: BMI is between 25 and 29.9 Obese: BMI is 30 and above Why is BMI important? Being overweight or obese (BMI over 25) can exacerbate or put you at risk for getting certain diseases, like the ones listed below: Arthritis Asthma Cancer Diabetes Mellitus Type 2 Heart Attack High blood pressure Hypertension Hyperlipidemia Kidney failure Other Lung diseases Sleep Apnea Stroke How can I lose weight: Choosing healthy foods in small portions and exercising regularly is a good way to start. The following are a few tips: Choose foods and snacks higher in protein and fiber. Reduce the amount of sugary drinks (like soda) and snacks (cookies, sweets, etc) Cut back on the amount of carbohydrates eaten daily (bread, pasta, rice, cakes) Drink at least 8 glasses of water per day - sometimes thirst feels like hunger - stay hydrated Chew your food slowly to savor the taste and allow the signal that you are full to register in your brain Exercise/Activity Exercise improves your blood flow and circulation, enhances your mood and can you to maintain or lose weight. A brisk walk for 30 mins or longer 4-5 times per week is recommended but you can also use DVD's at home such as Walk Away the Pounds, Arturo exercises, Yoga and others to get some variety. When do I need a referral? If you have tried all of the above and have not lost any weight, then you should ask your provider for a referral to a aerial applicator pilot or medical weight manager case management who can help you reach your goals for being at your ideal body weight. Gardasil Gardasil is a vaccine to protect against Human Papillomavirus (HPV) types 6, 11, 16, 18, 31,33,45, 52, 58. These viruses cause cancer and precancerous lesions on the cervix (opening between vagina and uterus), in the vagina and on the vulva (skin around the outside of the vagina) as well as genital warts. The vaccine cannot cause these diseases and cannot treat them if already present. Gardasil works best if given before contact with HPV. Most people are exposed to HPV soon after starting sexual activity. The vaccine is recommended between the ages of 9 and 45. Gardasil does not protect against all strains of HPV. Women who receive the vaccine still need to have regular pelvic exams and cervical cancer screening with the pap smear. You should ask your doctor if Gardasil is right for you if you have a weakened immune system, a bleeding disorder, plan to become soon or have a current illness causing fever. Gardasil is not recommended for women. You should be sure your doctor is aware of any allergies you have and all medications and herbal supplements you take. Gardasil is given to those ages 9-14 in 2 doses at 0 and 8 months. In ages 15-45, three injections are given at 0,2,6 months. Common side effects include pain, redness, itching and swelling at the injection site, nausea, fever, dizziness and fainting. Rare but potentially serious reactions have been reported. These include allergic reaction, swollen glands, joint and muscle pain, weakness and Guillain-Cataumet syndrome. documented in this encounter [facility] 10-16-[facility]22 History of Presen t illness Narrative Software Test Manager offered: Patient declines. Pathak is a 32 year old who presents for an annual gynecologic exam with complaints, infertility . Has been seeing for management of infertility. 4 rounds of letrozole and no conception. Asking for referral to infertility. Menses: cycles every 28-30 days and 3-4 days of flow. Contraception: none. 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 Carpio [facility] PAST SURGICAL HISTORY OF oral skin graft FAMILY HISTORY Problem Relation Age of Onset Heart Mother Diabetes Father Auto-Immune Disorder Father MS-didn't meet all criteria for diagnosis other (anxiety) Father No Known Problems Brother Heart Maternal Grandmother pacemaker Alcohol/Drug Maternal Grandfather Cancer Paternal Grandmother ovarian Heart Paternal Grandfather Melanoma Maternal Aunt Melanoma Maternal Uncle SOCIAL HISTORY Social History Tobacco Use Smoking status: Never Smokeless tobacco: Never Vaping Use Vaping Use: Never used Substance Use Topics Alcohol use: Yes Alcohol/week: 6.0 standard drinks Types: 6 Glasses of Wine (5oz) per week Drug use: No REVIEW OF SYSTEMS Abdomen: No abdominal pain, nausea, vomiting, diarrhea, or constipation. No bloating, early satiety, indigestion, or increased flatulence. Bladder: No dysuria, gross hematuria, urinary frequency, urinary urgency, or incontinence. Breast: No breast lumps, nipple d/c, overlying skin changes, redness or skin retraction. Allergies and current medication updated:Yes EXAM: BP 116/68 Ht 5' 9.75 (1.77m) Wt 212 lb (96.2kg) LMP 10/06/2022 BMI 30.63 kg/(m^2). GENERAL: pleasant, female in no apparent distress HEENT: Normocephalic, atraumatic, mucus membranes moist, and no lesions NECK: Supple, full range of motion, no adenopathy, and thyroid normal DERMATOLOGY: Normal, without lesions, non-icteric, and non-hirsute BREAST: soft, non-tender, symmetric, no dominant mass, normal nipple-areolar complex, no lymphadenopathy, and no nipple discharge CHEST: Normal inspiratory effort ABDOMEN: soft, non-tender, and no masses PELVIC: external genitalia normal, normal Bartholin's glands, urethra, Bacliff's glands, no vulvar lesions, no cervical lesions, good vaginal support, normal appearing perineal body and perianal region. Vaginal discharge, copious amount of yellow, no odor. BIMANUAL: uterus normal size, shape and consistency, no adnexal masses, and non-tender RECTOVAGINAL: deferred. NEURO: alert and oriented x3,exam grossly non-focal EXTREMITIES: normal ASSESSMENT/PLAN: 1. Encounter for gynecological examination (general) (routine) without abnormal findings - ICD9: V72.31, ICD10: Z01.419 (primary diagnosis) - Completed pelvic and breast exam - Encouraged monthly BSE - Follow up for annual exam in one year. 2. Family history of ovarian cancer - ICD9: V16.41, ICD10: Z80.41 - BRCA negative 3. Encounter for gynecological examination (general) (routine) with abnormal findings - ICD9: V72.31, ICD10: Z01.411 - Completed pelvic and breast exam - Encouraged monthly BSE - Follow up for annual exam in one year. 4. Female infertility - ICD9: 628.9, ICD10: N97.9 5. Vaginal discharge - ICD9: 623.5, ICD10: N89.8 1) Health maintenance: Pap/HPV up to date. Mammogram starting age 40. Nutrition, exercise and routine health maintenance exams reviewed. Calcium/Vitamin D supplementation information provided. Lipids/glucose: followed by PCP Vitamin D: followed by PCP HPV vaccine: discussed, not interested 2) Contraception: none. 3) STD screening: Declined STD check. 4) Follow up one year or sooner as needed Tiffany Dickens APRN.CNM documented in this encounter [facility] 10-02-2022 Note HNO ID: [id number] Author: Rosanne Jimenez MD Service: ? Author Type: Physician Type: Progress Notes Filed: 10/02/2022 5:05 PM Note Text: [facility] PROGRESS NOTE PATIENT: Ashleigh Robin MRD: [id number] DATE: October 02, 2022 IDENTIFYING INFORMATION: Ashleigh is a 32 year old female with a history of bipolar 1 disorder, DAVID. Patient was referred by previous psych provider as transition of care. Initially seen on 07/28/21. 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 She is not sure if she wants to take the next step-that is seeing a fertility specialist. She was also in the process of accepting a job with a higher pay, but the position got filled. All this together got her feeling a little down. However, she states that she feels fine and that this is just a phase in life. Her functionality is well-maintained. States that her has been extremely supportive. She is going to take a week to decide going in to see a fertility specialist. She denies any racing thoughts, flight of ideas or increased energy. Gets 8 hours of sleep at night and feels well rested during the day. Appetite is fair. Compliant with meds and denies any side effects. Denies SI/HI/AH/VH. States that she is optimistic. Medication side effects: None Suicidal/Homicidal Thoughts/Plans: denies Substance Use History: Tobacco-quit 1 year Alcohol-socially THC-occasionally. Quit 1 year back Rrgpscnh-5-9 cups of coffee a day. VITAL SIGNS: LMP 03/07/2022 (Exact Date) LAB DATA: None new MENTAL STATUS EXAMINATION: Appearance: appears stated age, ,Female, well-built and nourished, normal clothing, grooming is Within Normal Limits Activity: Normal Behavior: Cooperative, Good eye contact Speech: spontaneous, Normal rate, Normal volume, Clear Mood: Euthymic Affect: appropriate to content Thought Process: logical, coherent and rational Thought Content: no paranoia/delusions noted, No suicidal ideation, intent or plan. No homicidal ideation, intent or plan. Coherent Thought perception: Denies AH/VH. Cognition: Orientation: Person, Place, Time and Situation Attention: Intact Concentration: Intact Language: Intact naming Estimated Intelligence: Good Memory: Intact recent memory, Intact remote memory Insight: good Judgement: good RATING SCALES: PHQ-9 Score: 3 (09/26/2022 3:05 PM) (0-4) minimal depression, (5-9) mild depression, (10-14) moderate depression, (15-19) moderately severe depression, (20-27) severe depression DAVID-7 Total Score: 3 (09/26/2022 3:09 PM) (0-4) minimal anxiety, (5-9) mild anxiety, (10-14) moderate anxiety, (15-21) severe anxiety RISK ASSESSMENT: [place] SUICIDE SEVERITY RATING SCALE 1.) Wish to be : Have you wished you were or wished you could go to sleep and not wake up? NO 2.) Suicidal Thoughts: Have you actually had any thoughts of killing yourself? NO 6.) Suicide Behavior Question: Have you ever done anything, started to do anything, or prepared to do anything to end your life?NO IMPRESSION: 32-year-old female with medical history significant for asthma, scoliosis, seasonal allergie and psych history significant for bipolar 1 disorder and DAVID, presents today for follow up. Stable on current dose of meds. Diagnoses: Bipolar 1 disorder, in remission Generalized anxiety disorder PLAN: Continue Zoloft 50 mg p.o. daily for depression, anxiety Continue Abilify 1.25 mg p.o. daily as previously prescribed for mood stabilization, augmentation. Due to cost issues ordered as Abilify 5 mg p.o. daily (patient cuts it into one fourths). Discussed about Abilify dose of 1.25 mg (not known to stabilize mood at such a low dose). Pt. Verbalized understanding. She's been on this dose for many years since working with Dr. Barton. Risks, benefits, adverse effects and drug drug interactions of above meds discussed. Discussed in detail regarding safety of Zoloft and Abilify use in . Given reading material regarding use of Abilify in (unclear data, usually not recommended). Weighing the risks and benefits, it was decided that she continue Abilify (h/o relapse when Abilify was discontinued). Patient gives verbal permission to be registered in National Registry for Atypical Antipsychotics, once is confirmed. Medication changes: None Labs: None Provided supportive psychotherapy and validated her concerns. PDMP website checked and validated. All prescriptions have been APPROPRIATELY filled. No suspicious activity was identified. 10/02/2022 by Rosanne Jimenez MD Patient understands and agrees with the plan: Yes Patient will return for follow-up appointment in 6 months time. If there are any problems in the interim, (more content not included)... [facility] 10-02-2022 History of Presen t illness Narrative [facility] PROGRESS NOTE PATIENT: Ashleigh Robin MRD: [id number] DATE: October 02, 2022 IDENTIFYING INFORMATION: Ashleigh is a 32 year old female with a history of bipolar 1 disorder, DAVID. Patient was referred by previous psych provider as transition of care. Initially seen on 07/28/21. 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 She is not sure if she wants to take the next step-that is seeing a fertility specialist. She was also in the process of accepting a job with a higher pay, but the position got filled. All this together got her feeling a little down. However, she states that she feels fine and that this is just a phase in life. Her functionality is well-maintained. States that her has been extremely supportive. She is going to take a week to decide going in to see a fertility specialist. She denies any racing thoughts, flight of ideas or increased energy. Gets 8 hours of sleep at night and feels well rested during the day. Appetite is fair. Compliant with meds and denies any side effects. Denies SI/HI/AH/VH. States that she is optimistic. Medication side effects: None Suicidal/Homicidal Thoughts/Plans: denies Substance Use History: Tobacco-quit 1 year Alcohol-socially THC-occasionally. Quit 1 year back [id number] cups of coffee a day. VITAL SIGNS: LMP 03/07/2022 (Exact Date) LAB DATA: None new MENTAL STATUS EXAMINATION: Appearance: appears stated age, ,Female, well-built and nourished, normal clothing, grooming is Within Normal Limits Activity: Normal Behavior: Cooperative, Good eye contact Speech: spontaneous, Normal rate, Normal volume, Clear Mood: Euthymic Affect: appropriate to content Thought Process: logical, coherent and rational Thought Content: no paranoia/delusions noted, No suicidal ideation, intent or plan. No homicidal ideation, intent or plan. Coherent Thought perception: Denies AH/VH. Cognition: Orientation: Person, Place, Time and Situation Attention: Intact Concentration: Intact Language: Intact naming Estimated Intelligence: Good Memory: Intact recent memory, Intact remote memory Insight: good Judgement: good RATING SCALES: PHQ-9 Score: 3 (09/26/2022 3:05 PM) (0-4) minimal depression, (5-9) mild depression, (10-14) moderate depression, (15-19) moderately severe depression, (20-27) severe depression DAVID-7 Total Score: 3 (09/26/2022 3:09 PM) (0-4) minimal anxiety, (5-9) mild anxiety, (10-14) moderate anxiety, (15-21) severe anxiety RISK ASSESSMENT: [place] SUICIDE SEVERITY RATING SCALE 1.) Wish to be : Have you wished you were or wished you could go to sleep and not wake up? NO 2.) Suicidal Thoughts: Have you actually had any thoughts of killing yourself? NO 6.) Suicide Behavior Question: Have you ever done anything, started to do anything, or prepared to do anything to end your life?NO IMPRESSION: 32-year-old female with medical history significant for asthma, scoliosis, seasonal allergie and psych history significant for bipolar 1 disorder and DAVID, presents today for follow up. Stable on current dose of meds. Diagnoses: Bipolar 1 disorder, in remission Generalized anxiety disorder PLAN: Continue Zoloft 50 mg p.o. daily for depression, anxiety Continue Abilify 1.25 mg p.o. daily as previously prescribed for mood stabilization, augmentation. Due to cost issues ordered as Abilify 5 mg p.o. daily (patient cuts it into one fourths). Discussed about Abilify dose of 1.25 mg (not known to stabilize mood at such a low dose). Pt. Verbalized understanding. She's been on this dose for many years since working with Dr. Barton. Risks, benefits, adverse effects and drug drug interactions of above meds discussed. Discussed in detail regarding safety of Zoloft and Abilify use in . Given reading material regarding use of Abilify in (unclear data, usually not recommended). Weighing the risks and benefits, it was decided that she continue Abilify (h/o relapse when Abilify was discontinued). Patient gives verbal permission to be registered in National Registry for Atypical Antipsychotics, once is confirmed. Medication changes: None Labs: None Provided supportive psychotherapy and validated her concerns. PDMP website checked and validated. All prescriptions have been APPROPRIATELY filled. No suspicious activity was identified. 10/02/2022 by Rosanne Jimenez MD Patient understands and agrees with the plan: Yes Patient will return for follow-up appointment in 6 months time. If there are any problems in the interim, the patient will contact our clinic for an earlier appointment. For all medical and psychiatric emergencies, the patient will go to the nearest emergency room. I spent a total of 30 minutes on the date of the service which included preparing to see the patient, [id number] patient care, completing clinical documentation, obtaining and/or reviewing separately obtained history, performing a medically appropriate examination, counseling and educating the patient/family/caregiver, ordering medications, tests, or procedures, and care coordination (not separately reported). Electronically signed by Rosanne Jimenez MD October 02, 2022 4:30 PM documented in [facility] 07-07-2022 Miscellaneous Notes Progesterone day ordered. I believe she is planning to take femara this round. Will notify her with results after blood results. May need to increase femara next cycle. Patient response to Baboo message sent by provider regarding Progesterone result. documented in this encounter [facility] 06-15-2022 Miscellaneous Notes noted Patient will not be around on day 25. Patient will plan on getting lab drawn on Day 21 and then will do a home ovulation test for day 26. FYI. Heather Solares RN Will she be around for day 25? If not then she can just do the home ovulation kits that month or we can order to a lab near where she will be if she prefers Patient is currently using Femara and is doing Day 21 AND Day 26 progesterone levels. Patient will be around on day 21 for lab draw, but will be out of town and not returning until late on day 27 (which is a Sunday) and day 28 would be Labor Day (office closed). Patient is wanting to know what you suggest she do as far as lab draws. Heather Solares RN documented in this encounter [facility] 05-29-2022 Miscellaneous Notes Patient called. Lab told patient that the expected dates for the Progesterone order was in June not this month. Patient has not yet started the Femara. Can you please clarify for the patient. Is she to have day 22 drawn today and then day 26 so that we can determine which cycle days she is to start the Femara this month of May? She did not have her blood work drawn yet. Cyndee Peraza RN Yes we should do this month and every month on femara. Patient needs blood work this cycle, correct? Ok to do today, day 22 and again on day 26? Heather Solares RN documented in this encounter [facility] 05-15-2022 Miscellaneous Notes Pt notified and voiced understanding. Ginger Swartz LPN HSG done today at [facility]- need billing form please. Will order femara to [facility] [place] as reviewed with patient. Will need day 21 and day 26 progesterone levels. Pt will start this with next cycle. documented in this encounter [facility] 05-09-2022 Miscellaneous Notes See mychart message. Pt would like to proceed with HSG. Does the hospital have anything at 8am Sunday or Sunday next week? If so can we see about moving my 8:20 patients. Or I could do a 12:00 on Sunday. If not the patient is ok with any provider. documented in this encounter [facility] 05-09-2022 History of Presen t illness Narrative VIRTUAL VISIT PROGRESS NOTE This is a virtual visit using zoom. It required patient-provider interaction for the medical decision making as documented below. Ashleigh Robin is a 32 year old female seen for concerns regarding infertility. Patient states she had her IUD removed May 2021. Since that time her cycles have been roughly every 28 to 31 days. Patient states her periods are light and typically short. Patient states she does home ovulation prediction kits typically peaks around day 18 today 19. Patient denies any major medical conditions. She is taking Abilify and Zoloft. She states her did have a semen analysis and was told that everything was normal. Patient reports no significant dysmenorrhea or abnormal uterine bleeding. Patient reports has never been diagnosed with polycystic ovarian syndrome or any other metabolic conditions that she is aware of. Patient is currently taking a vitamin. She had a previous hormone panel performed which was overall within normal limits. patient denies any history of STDs, pelvic infections, previous abdominal surgeries. Patient offers no other concerns today. HISTORY REVIEWED (electronic chart updated): PAST MEDICAL HISTORY Diagnosis Date Asthma childhood, exersice/cold air BRCA negative 06/07/2020 [facility] Common cancer gene panel Depression DAVID (generalized anxiety disorder) History of pyelonephritis 07/2011 MDD (major depressive disorder) Scoliosis Seasonal allergies PAST SURGICAL HISTORY Procedure Laterality Date CORRECT BUNION,SIMPLE 10/29/2001 right PAST SURGICAL HISTORY OF oral skin graft FAMILY HISTORY Problem Relation Age of Onset Heart Mother Diabetes Father Auto-Immune Disorder Father MS-didn't meet all criteria for diagnosis other (anxiety) Father No Known Problems Brother Heart Maternal Grandmother pacemaker Alcohol/Drug Maternal Grandfather Cancer Paternal Grandmother ovarian Heart Paternal Grandfather Melanoma Maternal Aunt Melanoma Maternal Uncle Social History Tobacco Use Smoking status: Never Smoker Smokeless tobacco: Never Used Vaping Use Vaping Use: Never used Substance Use Topics Alcohol use: Yes Alcohol/week: 6.0 standard drinks Types: 6 Glasses of Wine (5oz) per week Drug use: No Current Outpatient Medications Medication Sig sertraline (ZOLOFT) 50 mg tablet Take 1 tablet by mouth once daily. ARIPiprazole (ABILIFY) 5 mg tablet Take 1 tablet by mouth once daily. Uwaolzyn-Bc-Lar-Fe-FA tab Take 1 tablet by mouth once daily. With folic acid and DHA as covered by insurance No current facility-administered medications for this visit. ALLERGIES Allergen Reactions Cats Other: See Comments nasal allergies REVIEW OF SYSTEMS: EMAIL MANAGER: denies abnormal vaginal bleeding PHYSICAL EXAMINATION: VIDEO EXAM: (if completed, performed via video enabled technology) GENERAL: alert and appropriate, in no distress, well-hydrated, well nourished and happy, smiling, interactive SKIN: no rash noted HEAD: normocephalic, no abnormality or lesion noted NEUROLOGIC: no obvious deficit ASSESSMENT: (N97.9) Female infertility (primary encounter diagnosis) PLAN: We discussed HSG and possible SIS. Rationale for these were reviewed with the patient given that she is low risk. Discussed Clomid versus Femara and a trial of approximately 4 cycles. We discussed that if she does not obtain would recommend reproductive endocrinology at that time. We discussed that she would need progesterone levels checked on a monthly basis. It does seem that she ovulates approximately day 18. We discussed changing her optimal intercourse time to [id number]. Patient will call her insurance company and then notify the office if she wants to proceed with an HSG. She is currently on cycle day 2. I discussed with her that we will like to perform this procedure day 6 today 10. She is open to any provider performing this if scheduling is an issue. All questions were answered to the best my ability. Patient was agreeable to the plan of care. There are no Patient Instructions on file for this visit. I spent a total of 20 minutes on the date of the service which included preparing to see the patient, [id number] patient care, completing clinical documentation, obtaining and/or reviewing separately obtained history, performing a medically appropriate examination and counseling and educating the patient/family/caregiver Sandrine Morales MD documented in this encounter [facility] 04-04-2022 History of Presen t illness Narrative [facility] PROGRESS NOTE PATIENT: Ashleigh Robin MRD: [id number] DATE: April 04, 2022 Utilizing telemental health services via zoomdue to current national crisis related to Covid-19 pandemic. Introduced difference in communication with patient when they were contacted. Verified patient location and . Identified their current location. Discussed limits of confidentiality during zoom conversations. Patient gave verbal consent to engage in telemental health services. Virtual platform used: zoom This Team Access Model visit is a virtual encounter. It required patient-provider interaction for the medical decision making as documented below. IDENTIFYING INFORMATION: Ashleigh is a 31 year old female with a history of bipolar 1 disorder, DAVID. Patient was referred by previous psych provider as transition of care. Initially seen on 07/28/21. CHIEF COMPLAINT: doing well SUBJECTIVE: States that she tested positive for COVID and is currently in isolation, but she's doing fine overall. Mood continues to be steady w/o any racing thoughts, impulsivity, irritability or poor sleep. Sleep and appetite are fine. Denies feeling depressed or anxious. Denies SI/HI/AH/VH. Compliant with meds and denies any s/e. Medication side effects: None Suicidal/Homicidal Thoughts/Plans: denies Substance Use History: Tobacco-quit 8 months back Alcohol-socially THC-occasionally. Quit 8 months back [id number]-0-6 cups of coffee a day. VITAL SIGNS: LMP 03/07/2022 (Exact Date) LAB DATA: None new MENTAL STATUS EXAMINATION: Appearance: appears stated age, ,Female, well-built and nourished, normal clothing, grooming is Within Normal Limits Activity: Normal Behavior: Cooperative, Good eye contact Speech: spontaneous, Normal rate, Normal volume, Clear Mood: Euthymic Affect: appropriate to content Thought Process: logical, coherent and rational Thought Content: no paranoia/delusions noted, No suicidal ideation, intent or plan. No homicidal ideation, intent or plan. Coherent Thought perception: Denies AH/VH. Cognition: Orientation: Person, Place, Time and Situation Attention: Intact Concentration: Intact Language: Intact naming Estimated Intelligence: Good Memory: Intact recent memory, Intact remote memory Insight: good Judgement: good RATING SCALES: PHQ-9 Score: 4 (04/04/2022 3:47 PM) (0-4) minimal depression, (5-9) mild depression, (10-14) moderate depression, (15-19) moderately severe depression, (20-27) severe depression DAVID-7 Total Score: 2 (04/04/2022 3:48 PM) (0-4) minimal anxiety, (5-9) mild anxiety, (10-14) moderate anxiety, (15-21) severe anxiety RISK ASSESSMENT: [place] SUICIDE SEVERITY RATING SCALE 1.) Wish to be : Have you wished you were or wished you could go to sleep and not wake up? NO 2.) Suicidal Thoughts: Have you actually had any thoughts of killing yourself? NO 6.) Suicide Behavior Question: Have you ever done anything, started to do anything, or prepared to do anything to end your life?NO IMPRESSION: 31-year-old female with medical history significant for asthma, scoliosis, seasonal allergie and psych history significant for bipolar 1 disorder and DAVID, previously seen by Dr. Barton presents today for follow up. Bipolar symptoms continue to be in remission. Diagnoses: Bipolar 1 disorder, in remission Generalized anxiety disorder PLAN: 1. Continue Zoloft 50 mg p.o. daily for depression, anxiety 2. Continue Abilify 1.25 mg p.o. daily as previously prescribed for mood stabilization, augmentation. Due to cost issues ordered as Abilify 5 mg p.o. daily (patient cuts it into one fourths). Discussed about Abilify dose of 1.25 mg (not known to stabilize mood at such a low dose). Pt. Verbalized understanding. 3. Risks, benefits, adverse effects and drug drug interactions of above meds discussed. 4. Discussed in detail regarding safety of Zoloft and Abilify use in . Given reading material regarding use of Abilify in (unclear data, usually not recommended). Weighing the risks and benefits, it was decided that she continue Abilify (h/o relapse when Abilify was discontinued). Patient gives verbal permission to be registered in National Registry for Atypical Antipsychotics, once is confirmed. 5. Medication changes: None 6. Labs: None 7. Provided supportive psychotherapy PDMP website checked and validated. All prescriptions have been APPROPRIATELY filled. No suspicious activity was identified. 04/04/2022 by Rosanne Jimenez MD Patient understands and agrees with the plan: Yes Patient will return for follow-up appointment in 6 months time. If there are any problems in the interim, the patient will contact our clinic for an earlier appointment. For all medical and psychiatric emergencies, the patient will go to the nearest emergency room. I spent a total of 30 minutes on the date of the service which included preparing to see the patient, [id number] patient care, completing clinical documentation, obtaining and/or reviewing separately obtained history, performing a medically appropriate examination, counseling and educating the patient/family/caregiver, ordering medications, tests, or procedures and care coordination (not separately reported). Electronically signed by Rosanne Jimenez MD April 04, 2022 3:50 PM documented in this encounter [facility] 03-17-2022 Instructions Tiffany Dickens APRN.CNM - 03/17/2022 10:10 AM EDT [facility] To make an appointment, please call [phone]. Here is another number as well [phone] I am not sure if they will have you come to [place] or recommend [facility]. [facility] /[facility]rology Services Contact Us [phone] [facility] Testing: FSH and estradiol On 04/10/22 Progesterone 04/28/22 Progesterone 05/03/22 documented in this encounter [facility] 03-17-2022 History of Presen t illness Narrative [facility]IS[facility] This Team Access Model visit is a virtual encounter. It required patient-provider interaction for the medical decision making as documented below. Ashleigh Robin is a 32 year old female seen for infertility IUD removed 06/18 to conceive. Has attempted for 7th cycles and going to 8th cycles. Taking PNV-Women's One a day Rylan Fagan no testing or trauma. No medical conditions. Downloaded nicole to track cycles 30-31 days. June OPK peaked day 18 July OPK peaked day 15 September OPK peaked day 17 December OPK 15, 16, 17 and unclear Van every other day from end of menses till next start of menses No pelvic pain. Menses regular. No bleeding or spotting throughout the month. Since tracking around time of ovulation will get a twinge and notices she feels ovulation . Unsure of which day she feels this. No history of STD, PID, or abdominal surgery No history of abnormal pap smear HISTORY REVIEWED (electronic chart updated): - medical history - medications - allergies REVIEW OF SYSTEMS: GENERAL: feeling well without fatigue, no recent change in weight PHYSICAL EXAMINATION: VIDEO EXAM: (if done, performed via video enabled technology) GENERAL: alert and appropriate, in no distress, well-hydrated, well nourished and happy, smiling, interactive ASSESSMENT/PLAN: 1. Female infertility - ICD9: 628.9, ICD10: N97.9 - Discussed over 30 years old and >6 months of attempting . Will get initial work up at this time. Discussed will follow up after testing. -Cystic fibrosis screening negative. Varicella Immune, Rubella Immune Will get FSH, estradiol and TSH on cycle day 3 Progesterone on cycle day 21 and cycle day 26 due to possible later ovulation. - Consider US - FSH BLD - ESTRADIOL-17B BLD - PROGESTERONE BLD - TSH BLD - PROGESTERONE BLD Tiffany Dickens APRN.CNM I spent a total of 30 minutes on the date of the service which included preparing to see the patient, [id number] patient care, completing clinical documentation, obtaining and/or reviewing separately obtained history, performing a medically appropriate examination, counseling and educating the patient/family/caregiver and ordering medications, tests, or procedures. documented in this encounter [facility] 10-18-2021 History of Past i llness Narrative Problem Noted Date Resolved Date Asthma 10/18/2021 Overview: childhood, exersice/cold air documented as of this encounter (statuses as of 03/17/2022) [facility] of Past [facility] Narrative* Problem Noted Date Resolved Date Asthma 10/18/2021 Overview: childhood, exersice/cold air documented as of this encounter (statuses as of 04/04/2022) [facility] Narrative* Problem Noted Date Resolved Date Asthma 10/18/2021 Overview: childhood, exersice/cold air documented as of this encounter (statuses as of 05/09/2022) [facility] Narr[facility]* Problem Noted Date Resolved Date Asthma 10/18/2021 Overview: childhood, exersice/cold air documented as of this encounter (statuses as of 05/09/2022) [facility] N[facility]* Problem Noted Date Resolved Date Asthma 10/18/2021 Overview: childhood, exersice/cold air documented as of this encounter (statuses as of 05/15/2022) [facility]* Problem Noted Date Resolved Date Asthma 10/18/2021 Overview: childhood, exersice/cold air documented as of this encounter (statuses as of 05/29/2022) [facility]* Problem Noted Date Resolved Date Asthma 10/18/2021 Overview: childhood, exersice/cold air documented as of this encounter (statuses as of 06/15/2022) [facility]* Problem Noted Date Resolved Date Asthma 10/18/2021 Overview: childhood, exersice/cold air documented as of this encounter (statuses as of 07/07/2022) [facility]* Problem Noted Date Resolved Date Asthma 10/18/2021 Overview: childhood, exersice/cold air documented as of this encounter (statuses as of 07/31/2022) [facility]* Problem Noted Date Resolved Date Asthma 10/18/2021 Overview: childhood, exersice/cold air documented as of this encounter (statuses as of 10/02/2022) [facility]* Problem Noted Date Resolved Date Asthma 10/18/2021 Overview: childhood, exersice/cold air documented as of this encounter (statuses as of 10/11/2022) [facility]* Problem Noted Date Resolved Date Asthma 10/18/2021 Overview: childhood, exersice/cold air documented as of this encounter (statuses as of 10/16/2022) [facility]* Problem Noted Date Resolved Date Asthma 10/18/2021 Overview: childhood, exersice/cold air documented as of this encounter (statuses as of 11/01/2022) [facility]* Problem Noted Date Resolved Date Asthma 10/18/2021 Overview: childhood, exersice/cold air documented as of this encounter (statuses as of 11/03/2022) [facility]* Problem Noted Date Resolved Date Asthma 10/18/2021 Overview: childhood, exersice/cold air documented as of this encounter (statuses as of 12/18/2022) [facility]* Problem Noted Date Resolved Date Asthma 10/18/2021 Overview: childhood, exersice/cold air documented as of this encounter (statuses as of 12/26/2022) [facility]* Problem Noted Date Resolved Date Asthma 10/18/2021 Overview: childhood, exersice/cold air documented as of this encounter (statuses as of 12/29/2022) [facility]* Problem Noted Date Resolved Date Asthma 10/18/2021 Overview: childhood, exersice/cold air documented as of this encounter (statuses as of 12/30/2022) [facility]* Problem Noted Date Resolved Date Asthma 10/18/2021 Overview: childhood, exersice/cold air documented as of this encounter (statuses as of 01/10/2023) [facility]* Problem Noted Date Resolved Date Asthma 10/18/2021 Overview: childhood, exersice/cold air documented as of this encounter (statuses as of 01/11/2023) [facility]* Problem Noted Date Resolved Date Asthma 10/18/2021 Overview: childhood, exersice/cold air documented as of this encounter (statuses as of 01/27/2023) [facility]* Problem Noted Date Resolved Date Asthma 10/18/2021 Overview: childhood, exersice/cold air documented as of this encounter (statuses as of 04/05/2023) [facility]* Problem Noted Date Resolved Date Asthma 10/18/2021 Overview: childhood, exersice/cold air documented as of this encounter (statuses as of 04/05/2023) [facility] Narrative* Problem Noted Date Resolved Date Asthma 10/18/2021 Overview: childhood, exersice/cold air documented as of this encounter (statuses as of 04/25/2023) [facility] of Past [facility] Narrative* Problem Noted Date Diagnosed Date Resolved Date Asthma 10/18/2021 Overview: childhood, exersice/cold air documented as of this encounter (statuses as of 07/16/2023) [facility] Narrative* Problem Noted Date Diagnosed Date Resolved Date Asthma 10/18/2021 Overview: childhood, exersice/cold air documented as of this encounter (statuses as of 08/29/2023) [facility] of [facility] Narrative* Problem Noted Date Diagnosed Date Resolved Date Asthma 10/18/2021 Overview: childhood, exersice/cold air documented as of this encounter (statuses as of 08/30/2023) [facility] Narrative* Problem Noted Date Diagnosed Date Resolved Date Asthma 10/18/2021 Overview: childhood, exersice/cold air documented as of this encounter (statuses as of 09/14/2023) [facility] of Past [facility] Narrative* Problem Noted Date Diagnosed Date Resolved Date Asthma 10/18/2021 Overview: childhood, exersice/cold air documented as of this encounter (statuses as of 10/05/2023) [facility] Diagnosis Female infertility- Primary Female infertility of unspecified origin [facility] Diagnosis Bipolar 1 disorder, manic, full remission (HCC)- Primary Bipolar I disorder, most recent episode (or current) manic, in full remission Generalized anxiety disorder [facility] Diagnosis Female infertility- Primary Female infertility of unspecified origin [facility] Diagnosis Female infertility- Primary Female infertility of unspecified origin documented in this encounter [facility] note* Diagnosis Female infertility- Primary Female infertility of unspecified origin documented in this encounter [facility] note* Diagnosis Bipolar 1 disorder, manic, full remission (HCC)- Primary Bipolar I disorder, most recent episode (or current) manic, in full remission Generalized anxiety disorder documented in this encounter [facility] note* Diagnosis Female infertility- Primary Female infertility of unspecified origin documented in this encounter [facility] note* Diagnosis Encounter for gynecological examination (general) (routine) with abnormal findings- Primary Female infertility Female infertility of unspecified origin Vaginal discharge Leukorrhea, not specified as infective Family history of ovarian cancer Family history of malignant neoplasm of ovary documented in this encounter [facility] note* Diagnosis Routine medical exam- Primary Routine general medical examination at a [facility] Encounter for screening for diabetes mellitus Screening for diabetes mellitus documented in this encounter [facility] note* Diagnosis Problems with ovulation- Primary Unspecified noninflammatory disorder of ovary, fallopian tube, and broad ligament Female infertility Female infertility of unspecified origin Attempting to conceive Patient desires Unspecified procreative management Encounter for fertility planning Other specified procreative management documented in this encounter [facility] note* Diagnosis Treatment plan provided- Primary documented in this encounter [facility] note* Diagnosis Encounter for artificial insemination- Primary Artificial insemination documented in this encounter [facility] note* Diagnosis Encounter for fertility planning [Z31.89 (ICD-10-CM)]- Primary Other specified procreative management Problems with ovulation Unspecified noninflammatory disorder of ovary, fallopian tube, and broad ligament documented in this encounter [facility] note* Diagnosis Problems with ovulation Unspecified noninflammatory disorder of ovary, fallopian tube, and broad ligament documented in this encounter [facility] note* Diagnosis Encounter for artificial insemination- Primary Artificial insemination documented in this encounter [facility] note* Diagnosis Bipolar 1 disorder, manic, full remission (HCC)- Primary Bipolar I disorder, most recent episode (or current) manic, in full remission Generalized anxiety disorder documented in this encounter [facility] note* Diagnosis Bipolar 1 disorder, manic, full remission (HCC) Bipolar I disorder, most recent episode (or current) manic, in full remission Generalized anxiety disorder documented in this encounter [facility] note* Diagnosis Bipolar 1 disorder, manic, full remission (HCC) Bipolar I disorder, most recent episode (or current) manic, in full remission Generalized anxiety disorder documented in this encounter [facility] note* Diagnosis Acute otitis media, left- Primary Unspecified otitis media documented in this encounter [facility] note* Diagnosis Vaginal odor- Primary Unspecified symptom associated with female genital organs Encounter for counseling regarding contraception Vaginal discharge Leukorrhea, not specified as infective documented in this encounter [facility] note* Diagnosis Encounter for IUD insertion- Primary Encounter for insertion of intrauterine contraceptive device documented in this encounter [facility] note* Diagnosis Bipolar 1 disorder, manic, full remission (HCC)- Primary Bipolar I disorder, most recent episode (or current) manic, in full remission Generalized anxiety disorder documented in this encounter [facility] note* Diagnosis Generalized anxiety disorder- Primary Bipolar 1 disorder, manic, full remission (HCC) Bipolar I disorder, most recent episode (or current) manic, in full remission [facility] Outpatient Procedure (Routine) - Pending Review Specialty Diagnoses / Procedures Referred By Tobi miguel Referred To Contact [facility] Diagnoses Encounter for counseling regarding contraception Procedures INSERT INTRAUTERINE DEVICE LEVONORGESTREL IU 52MG 5 YR INSERT INTRAUTERINE DEVICE Verenice Cisneros APRN.CNP [address] [place] [address] [facility] [address] [place] [id number] Referral ID Status Reason Start Date Expiration Date Visits Requested Visits Authorized [id number] Pending Review Auto-Generat ed Referral 08/29/2023 08/28/2024 1 1 [facility] Summary Purpose Family History No Family History Records FoundNo Family History Records FoundNo Family History Records Found Advance Directives No Advanced Directives Records FoundNo Advanced Directives Records FoundNo Advanced Directives Records Found Reason for Referral Specialty Diagnoses / Procedures Referred By Contac t Referred To Contact Diagnoses Female infertility Procedures CONSULT TO INFERTILITY CLINIC OFFICE[facility] 60-74 MINUTES Sandrine Woodson MD [address] [place] [address] Referral ID Status Reason Start Date Expiration Date Visits Requested Visits Authorized [id number] Authorized PCP Requested Referral Auto-Generate d Referral 2 10/11/2023 1 1 Specialty Diagnoses / Procedures Referred By Contac t Referred To Contact Diagnoses Female infertility Procedures CONSULT TO INFERTILITY CLINIC OFFICE[facility] 60-74 MINUTES Tiffany Dickens APRN.CN [address] [place] [address] Referral ID Status Reason Start Date Expiration Date Visits Requested Visits Authorized [id number] Authorized PCP Requested Referral Auto-Generate d Referral 2 10/16/2023 1 1 Medications Administered Section Inactive Administered Medications - up to 3 most recent administrations Medication Order MAR Action Action Date Dose Rate Site levonorgestrel 21 mcg/24 hours (8 yrs) 52 mg 1 Each intrauterine device (MIRENA) 1 Each, INTRAUTERINE, ONCE (UP TO 30 DAYS AMB), 1 dose, On Sun09/14/23 at 1430, Hazardous Potential Reproductive Risk Drug: Use appropriate PPE. Given 09/14/2023 3:02 PM EST 1 Each Additional Source Comments INFORMATION SOURCE (unrecogn ized section and content) DATE CREATED AUTHOR 02/17/2019 [facility] DATE CREATED AUTHOR AUTHOR'S ORGANIZ ATION 04/09/2023 [facility] DATE CREATED AUTHOR AUTHOR'S ORGANIZ ATION 10/31/2023 [facility] Source Comments (unrecognize d section and content) In the event this informatio n is protected by the Federal Confidentiality of Alcohol and Drug Abuse Patient Records regulations: The Federal rules restrict any use of the information to criminally investigate or prosecute any alcohol or drug abuse patient.[facility] event this information is protected by the Federal Confidentiality of Alcohol and Drug Abuse Patient Records regulations: The Federal rules restrict any use of the information to criminally investigate or prosecute any alcohol or drug abuse patient.[facility] the event this information is protected by the Federal Confidentiality of Alcohol and Drug Abuse Patient Records regulations: The Federal rules restrict any use of the information to criminally investigate or prosecute any alcohol or drug abuse patient.[facility] the event this information is protected by the Federal Confidentiality of Alcohol and Drug Abuse Patient Records regulations: The Federal rules restrict any use of the information to criminally investigate or prosecute any alcohol or drug abuse patient.[facility] the event this information is protected by the Federal Confidentiality of Alcohol and Drug Abuse Patient Records regulations: The Federal rules restrict any use of the information to criminally investigate or prosecute any alcohol or drug abuse patient.[facility] the event this information is protected by the Federal Confidentiality of Alcohol and Drug Abuse Patient Records regulations: The Federal rules restrict any use of the information to criminally investigate or prosecute any alcohol or drug abuse patient.[facility] the event this information is protected by the Federal Confidentiality of Alcohol and Drug Abuse Patient Records regulations: The Federal rules restrict any use of the information to criminally investigate or prosecute any alcohol or drug abuse patient.[facility] the event this information is protected by the Federal Confidentiality of Alcohol and Drug Abuse Patient Records regulations: The Federal rules restrict any use of the information to criminally investigate or prosecute any alcohol or drug abuse patient.[facility] the event this information is protected by the Federal Confidentiality of Alcohol and Drug Abuse Patient Records regulations: The Federal rules restrict any use of the information to criminally investigate or prosecute any alcohol or drug abuse patient.[facility] the event this information is protected by the Federal Confidentiality of Alcohol and Drug Abuse Patient Records regulations: The Federal rules restrict any use of the information to criminally investigate or prosecute any alcohol or drug abuse patient.[facility] the event this information is protected by the Federal Confidentiality of Alcohol and Drug Abuse Patient Records regulations: The Federal rules restrict any use of the information to criminally investigate or prosecute any alcohol or drug abuse patient.[facility] the event this information is protected by the Federal Confidentiality of Alcohol and Drug Abuse Patient Records regulations: The Federal rules restrict any use of the information to criminally investigate or prosecute any alcohol or drug abuse patient.[facility] the event this information is protected by the Federal Confidentiality of Alcohol and Drug Abuse Patient Records regulations: The Federal rules restrict any use of the information to criminally investigate or prosecute any alcohol or drug abuse patient.[facility] the event this information is protected by the Federal Confidentiality of Alcohol and Drug Abuse Patient Records regulations: The Federal rules restrict any use of the information to criminally investigate or prosecute any alcohol or drug abuse patient.[facility] the event this information is protected by the Federal Confidentiality of Alcohol and Drug Abuse Patient Records regulations: The Federal rules restrict any use of the information to criminally investigate or prosecute any alcohol or drug abuse patient.[facility] the event this information is protected by the Federal Confidentiality of Alcohol and Drug Abuse Patient Records regulations: The Federal rules restrict any use of the information to criminally investigate or prosecute any alcohol or drug abuse patient.[facility] the event this information is protected by the Federal Confidentiality of Alcohol and Drug Abuse Patient Records regulations: The Federal rules restrict any use of the information to criminally investigate or prosecute any alcohol or drug abuse patient.[facility] the event this information is protected by the Federal Confidentiality of Alcohol and Drug Abuse Patient Records regulations: The Federal rules restrict any use of the information to criminally investigate or prosecute any alcohol or drug abuse patient.[facility] the event this information is protected by the Federal Confidentiality of Alcohol and Drug Abuse Patient Records regulations: The Federal rules restrict any use of the information to criminally investigate or prosecute any alcohol or drug abuse patient.[facility] the event this information is protected by the Federal Confidentiality of Alcohol and Drug Abuse Patient Records regulations: The Federal rules restrict any use of the information to criminally investigate or prosecute any alcohol or drug abuse patient.[facility] the event this information is protected by the Federal Confidentiality of Alcohol and Drug Abuse Patient Records regulations: The Federal rules restrict any use of the information to criminally investigate or prosecute any alcohol or drug abuse patient.[facility] the event this information is protected by the Federal Confidentiality of Alcohol and Drug Abuse Patient Records regulations: The Federal rules restrict any use of the information to criminally investigate or prosecute any alcohol or drug abuse patient.[facility] the event this information is protected by the Federal Confidentiality of Alcohol and Drug Abuse Patient Records regulations: The Federal rules restrict any use of the information to criminally investigate or prosecute any alcohol or drug abuse patient.[facility] the event this information is protected by the Federal Confidentiality of Alcohol and Drug Abuse Patient Records regulations: The Federal rules restrict any use of the information to criminally investigate or prosecute any alcohol or drug abuse patient.[facility] the event this information is protected by the Federal Confidentiality of Alcohol and Drug Abuse Patient Records regulations: The Federal rules restrict any use of the information to criminally investigate or prosecute any alcohol or drug abuse patient.[facility] the event this information is protected by the Federal Confidentiality of Alcohol and Drug Abuse Patient Records regulations: The Federal rules restrict any use of the information to criminally investigate or prosecute any alcohol or drug abuse patient.[facility] the event this information is protected by the Federal Confidentiality of Alcohol and Drug Abuse Patient Records regulations: The Federal rules restrict any use of the information to criminally investigate or prosecute any alcohol or drug abuse patient.[facility] the event this information is protected by the Federal Confidentiality of Alcohol and Drug Abuse Patient Records regulations: The Federal rules restrict any use of the information to criminally investigate or prosecute any alcohol or drug abuse patient.[facility] the event this information is protected by the Federal Confidentiality of Alcohol and Drug Abuse Patient Records regulations: The Federal rules restrict any use of the information to criminally investigate or prosecute any alcohol or drug abuse patient.[facility] the event this information is protected by the Federal Confidentiality of Alcohol and Drug Abuse Patient Records regulations: The Federal rules restrict any use of the information to criminally investigate or prosecute any alcohol or drug abuse [facility] Reason for Visit (unrecogniz ed section and content) Reason Comments Infertility Reason Comments Bipolar Disorder Med Management Specialty Diagnoses / Procedures Referred By Tobi miguel Referred To Contact Psychiatry / ADULT PSYCHIATRY Diagnoses 3 month follow up - Needs PHQ/DAVID and Friends and Family Form Procedures EST PATIENT [facility] 1 [facility] [address] [place] [id number] Rosanne Jimenez MD 1 [facility] [address] [place] [address] Referral ID Status Reason Start Date Expiration Date V isits Requested Visits Authorized [id number] Authorized 01/03/2022 10/27/2022 99 99 Reason Comments Telemedicine Reason Comments Orders Reason Comments Patient Question Reason Comments Bipolar Disorder Medication Follow-up Reason Comments Yearly Exam Reason Comments Yearly Exam Reason Comments Treatment Planning Specialty Diagnoses / Procedures Referred By Tobi t Referred To Contact Diagnoses Female infertility Procedures CONSULT TO INFERTILITY CLINIC OFFICE[facility] 60-74 MINUTES Tiffany Dickens APRN.CN [address] [place] [address] Referral ID Status Reason Start Date Expiration Date V isits Requested Visits Authorized [id number] Closed PCP Requested Referral Auto-Generated Referral 10/16/2022 10/16/2023 1 1 Reason Comments insemination Reason Comments IUI Specialty Diagnoses / Procedures Referred By Tobi t Referred To Contact [facility] Diagnoses Encounter for other procreative management Procedures [place] [address] [place] [address] [facility] [address] [place] [address] Referral ID Status Reason Start Date Expiration Date V isits Requested Visits Authorized [id number] Closed Financial Clearance Required - Self Pay Patient Cleared - True Self-Pay required payment collected Do Not Bill Insurance - SP patient 12/25/2022 03/25/2023 1 1 Reason Comments failed iui Reason Comments letrozole 2.5 mg needs script Specialty Diagnoses / Procedures Referred By Tobi miguel Referred To Contact [facility] Diagnoses Encounter for other procreative management Procedures ARTIFIC [place] [address] [place] [address] [facility] [address] [place] [id number] Referral ID Status Reason Start Date Expiration Date V isits Requested Visits Authorized [id number] Closed Financial Clearance Required - Self Pay Patient Cleared - True Self-Pay required payment collected Do Not Bill Insurance - SP patient 01/26/2023 04/26/2023 1 1 Reason Comments Med Change Request Reason Comments Refill Request Reason Comments Ear Pain Left ear pain, feels clogged x 1 day Reason Comments Vaginal Problem And discuss iud Reason Onset Date Comments Insertion Of IUD 09/14/2023 Specialty Diagnoses / Procedures Referred By Tobi miguel Referred To Contact [facility] Diagnoses Encounter for counseling regarding contraception Procedures INSERT INTRAUTERINE DEVICE LEVONORGESTREL IU 52MG 5 YR INSERT INTRAUTERINE DEVICE Verenice Cisneros APRN.LEASE ADMINISTRATION SUPERVISOR [address] [place] [address] [facility] [address] [place] [address] Referral ID Status Reason Start Date Expiration Date Visits Requested Visits Authorized [id number] Authorized Auto-Generat ed Referral 08/31/2023 10/28/2023 2 2 Reason Comments Anxiety Follow Up Reason Comments Depression Anxiety Follow Up Care Teams (unrecognized sec tion and content) Portfolio Management Marketing Relationship Specialty Start Date End Date Bimal Terrazas MD [address] [place] [address] PCP - General Internal Medicine 09/28/22 Portfolio Management Marketing Relationship Specialty Start Date End Date Bimal Terrazas MD [address] [place] [address] PCP - General Internal Medicine 09/28/22 Portfolio Management Marketing Relationship Specialty Start Date End Date Bimal Terrazas MD [address] [place] [address] PCP - General Internal Medicine 09/28/22 Portfolio Management Marketing Relationship Specialty Start Date End Date Bimal Terrazas MD [address] [place] [address] PCP - General Internal Medicine 09/28/22 Portfolio Management Marketing Relationship Specialty Start Date End Date Bimal Terrazas MD [address] [place] [address] PCP - General Internal Medicine 09/28/22 Portfolio Management Marketing Relationship Specialty Start Date End Date Bimal Terrazas MD [address] [place] [address] PCP - General Internal Medicine 09/28/22 Portfolio Management Marketing Relationship Specialty Start Date End Date Bimal Terrazas MD [address] [place] [address] PCP - General Internal Medicine 09/28/22 Portfolio Management Marketing Relationship Specialty Start Date End Date Bimal Terrazas MD [address] [place] [address] PCP - General Internal Medicine 09/28/22 Portfolio Management Marketing Relationship Specialty Start Date End Date Bimal Terrazas MD [address] [place] [address] PCP - General Internal Medicine 09/28/22 Portfolio Management Marketing Relationship Specialty Start Date End Date Bimal Terrazas MD [address] [place] [address] PCP - General Internal Medicine 09/28/22 Portfolio Management Marketing Relationship Specialty Start Date End Date Bimal Terrazas MD [address] [place] [address] PCP - General Internal Medicine 09/28/22 Portfolio Management Marketing Relationship Specialty Start Date End Date Bimal Terrazas MD [address] [place] [address] PCP - General Internal Medicine 09/28/22 Portfolio Management Marketing Relationship Specialty Start Date End Date Bimal Terrazas MD [address] [place] [address] PCP - General Internal Medicine 09/28/22 Portfolio Management Marketing Relationship Specialty Start Date End Date Bimal Terrazas MD [address] [place] [address] PCP - General Internal Medicine 09/28/22 Portfolio Management Marketing Relationship Specialty Start Date End Date Bimal Terrazas MD [address] [place] [address] PCP - General Internal Medicine 09/28/22 Portfolio Management Marketing Relationship Specialty Start Date End Date Bimal Terrazas MD [address] [place] [address] PCP - General Internal Medicine 09/28/22 FOR RECORDS PERTAINING TO PATIENTS WHO ARE OR HAVE BEEN ENROLLED IN A CHEMICAL DEPENDENCY/SUBSTANCEABUSE PROGRAM, SOME INFORMATION MAY BE OMITTED. This clinical summary was aggregated from multiple sources. Caution should be exercised in using it in the provision of clinical care. This summary normalizes information from multiple sources, and as a consequence, information in this document may materially change the coding, format and clinical context of patient data. In addition, data may be omitted in some cases. CLINICAL DECISIONS SHOULD BE BASED ON THE PRIMARY CLINICAL RECORDS. [facility] [employer] [facility]. provides no warranty [id number] guarantee [id number] the accuracy [id number] completeness [phone] information in [id number] [id number]
== END | disposition home or self-care (01) ==
LOC: RAD 11:55
PROVIDERS: PCP Nurse Practitioner Family; Referring Provider Nurse Practitioner Family; Visit Provider Nurse Practitioner Family
DX: M25.562 Pain in left knee (principal)
CPT/HCPCS: 73562

== ENCOUNTER → 2025-09-02 | Outpatient (CLI) | payer BC, SELFPAY ==
[2025-09-02 17:08] LABS: Hematocrit 45.2 % (37-47); Hemoglobin 14.4 g/dL (12.0-15.0); Immature Granulocytes Count 0.070 X10^3/uL (0.0-0.0); Mean Corp Hgb Conc 31.9 g/dL (32-36); Mean Corpuscular Volume 94.0 fL (81-99); Mean Platelet Vol. 9.8 fl (6.2-12.0); NRBC Flagged by Analyzer 0 % (0-5); Platelet Count 325 K/mm3 (150-450); RBC Distribution Width CV 13.6 % (11.6-14.6); RBC Distribution Width SD 46.8 fl (35.1-43.9); Red Blood Count 4.81 M/mm3 (4.2-5.4); White Blood Count 9.4 K/mm3 (4.4-11.0)
[2025-09-02 17:20] LABS: Color, Urine Yellow (Yellow); Glucose, Dipstick Normal (Normal); Ketone-Dipstick Negative (Negative); Leukocyte Esterase-Dipstick 500 /ul (Negative); Nitrite-Dipstick Negative (Negative); Occult Blood-Urine Negative /ul (Negative); Protein-Dipstick Negative (Negative); Specific Gravity, Urine 1.010 (1.002-1.030); Urine Bilirubin Dipstick Negative (Negative)
[2025-09-02 18:18] LABS: AST(SGOT) 33 U/L (<=31); Alanine Aminotransfer ALT/SGPT 62 U/L (<=34); Albumin, Serum 4.8 g/dL (3.5-5.0); Alkaline Phosphatase 83 U/L (35-104); Anion Gap 14 (5-15); BUN 9 mg/dL (4-19); BUN/Creat Ratio 14.0 RATIO (10-20); Calcium,Total 10.0 mg/dL (7.6-11.0); Carbon Dioxide 24.4 mmol/L (21.0-32.0); Chloride 101 mmol/L (98-108); Cholesterol 169 mg/dL (<=200); Globulin 3.2 g/dL (2.2-4.2); Glucose 92 mg/dL (70-99); Low Density Lipoprotein Calc. 80 mg/dL; Potassium 4.1 mmol/L (3.3-5.1); Triglycerides 80 mg/dL; Very Low Density Lipoprotein 16 mg/dL (5-40); Vitamin B12 385 pg/mL (180-914); Vitamin D,25 Hydroxy 23.7 ng/mL (30-100); cholesterol:hdl ratio screen 2.28
== END | disposition home or self-care (01) ==
LOC: VSLAB 13:57
PROVIDERS: PCP Nurse Practitioner Family; Referring Provider Nurse Practitioner Family; Visit Provider Nurse Practitioner Family
DX: Z00.00 Encounter for general adult medical examination without abnormal findings (principal)
CPT/HCPCS: 36415; 80053; 80061; 81002; 82306; 82607; 83036; 84443; 85025; 86376